=== PATIENT | female | born 1950 | race Caucasian/White ===

== ENCOUNTER → 2018-03-26 16:15 | Outpatient (CLI) | payer OTHER, MEDICARE, SELFPAY ==
[2018-03-26 17:37] LABS: Add Manual Diff / Slide Review NO; Basophils Percent Auto 1.2 % (0-2); Eosinophils Percent Auto 1.8 % (2-4); Hematocrit 44.7 % (36-46); Hemoglobin 14.9 g/dL (12.0-16.0); Lymphocytes Percent Auto 25.9 % (25-40); Mean Corpuscular HGB Conc 33.3 % (30-36); Mean Corpuscular Volume 87.1 fL (80-100); Monocytes Percent Auto 4.8 % (3-14); Neutrophils Absolute Auto 8000 /uL (3000-5900); Neutrophils Percent Auto 66.3 % (50-75); Platelet Count 291 X10^3/uL (150-400); Red Blood Cell Count 5.13 X10^6/uL (4.0-5.2); Red Cell Distribution Width 14.4 % (11.6-14.8); White Blood Cell Count 12.1 X10^3/uL (4.5-11.0)
[2018-03-26 17:58] LABS: Alanine Aminotransferase 39 IU/L (9-52); Albumin 4.3 g/dL (3.5-5.0); Albumin Globulin Ratio 1.4 (1.0-2.8); Alkaline Phosphatase 105 U/L (38-126); Aspartate Aminotransferase 27 IU/L (14-36); Bilirubin Total 0.5 mg/dL (0.2-1.3); Blood Urea Nitrogen 15 mg/dL (7-17); Calcium 9.8 mg/dL (8.4-10.2); Carbon Dioxide 26 mmol/L (22-32); Chloride 100 mmol/L (98-107); Cholesterol 191 mg/dL (140-199); Estimated Glomerular Filt Rate > 60.0 mL/min (>60); Glucose 89 mg/dL (80-110); HDL Cholesterol 56 mg/dL (40-60); HEMOLYSIS < 15 (0-50); LDL Cholesterol Calculated 106 mg/dL (<100); Potassium 4.4 mmol/L (3.4-5.1); Sodium 142 mmol/L (137-145); Total Protein 7.3 g/dL (6.3-8.2); Triglycerides 146 mg/dL (35-150)
== END ==
PROVIDERS: Family Provider Internal Medicine; PCP Internal Medicine; Visit Provider Internal Medicine
DX: I10 Essential (primary) hypertension (principal); I48.0 Paroxysmal atrial fibrillation; J45.20 Mild intermittent asthma, uncomplicated; M06.9 Rheumatoid arthritis, unspecified
CPT/HCPCS: 36415; 80053; 80061; 85025

== ENCOUNTER → 2018-08-15 07:04 | Outpatient (CLI) | payer OTHER, MEDICARE, SELFPAY ==
[2018-08-15 08:53] LABS: Add Manual Diff / Slide Review NO; Basophils Absolute Auto 0 /uL (0-100); Basophils Percent Auto 0.4 % (0-2); Eosinophils Absolute Auto 200 /uL (0-450); Eosinophils Percent Auto 2.5 % (2-4); Hematocrit 44.2 % (36-46); Hemoglobin 14.7 g/dL (12.0-16.0); Lymphocytes Absolute Auto 2900 /uL (1100-4500); Lymphocytes Percent Auto 33.1 % (25-40); Mean Corpuscular HGB Conc 33.4 % (30-36); Mean Corpuscular Volume 86.8 fL (80-100); Monocytes Absolute Auto 600 /uL (0-900); Monocytes Percent Auto 6.8 % (3-14); Neutrophils Absolute Auto 5000 /uL (1500-7000); Neutrophils Percent Auto 57.2 % (50-75); Platelet Count 301 X10^3/uL (150-400); Red Blood Cell Count 5.09 X10^6/uL (4.0-5.2); White Blood Cell Count 8.8 X10^3/uL (4.5-11.0)
[2018-08-15 09:12] LABS: Erythrocyte Sedimentation Rate 37 MM/HR (0-20)
[2018-08-15 09:25] LABS: INR 0.9 (0.9-1.3); Prothrombin Time 10.8 SECONDS (10.1-12.7)
[2018-08-15 09:27] LABS: PTT Partial Thromboplastin Tim 34 SECONDS (26.4-36.2)
[2018-08-15 09:37] LABS: Alanine Aminotransferase 30 IU/L (9-52); Albumin 3.8 g/dL (3.5-5.0); Albumin Globulin Ratio 1.3 (1.0-2.8); Alkaline Phosphatase 79 U/L (38-126); Aspartate Aminotransferase 20 IU/L (14-36); Bilirubin Total 0.4 mg/dL (0.2-1.3); Blood Urea Nitrogen 28 mg/dL (7-17); Calcium 9.5 mg/dL (8.4-10.2); Carbon Dioxide 31 mmol/L (22-32); Chloride 100 mmol/L (98-107); Estimated Glomerular Filt Rate > 60.0 mL/min (>60); Globulin 2.9 g/dL (1.7-4.1); Glucose 111 mg/dL (80-110); HEMOLYSIS < 15 (0-50); Potassium 4.5 mmol/L (3.4-5.1); Sodium 139 mmol/L (137-145); Total Protein 6.7 g/dL (6.3-8.2)
[2018-08-17 21:17] LABS: ANA Screen, IFA Negative (Negative)
== END ==
PROVIDERS: PCP Internal Medicine; Visit Provider Nurse Practitioner
DX: M32.9 Systemic lupus erythematosus, unspecified (principal); R21 Rash and other nonspecific skin eruption
CPT/HCPCS: 36415; 80053; 85025; 85610; 85651; 85730; 86038; 86140

== ENCOUNTER 2018-11-14 23:10 | Emergency (ER) | payer OTHER, MEDICARE, SELFPAY ==
[2018-11-14 23:20] VITALS: BP 148/88; PULSE 70; RESP 30; TEMP 36.5; O2SAT 97; BMI 54.3
--- NOTE | 2018-11-14 23:27 | ED.ABDPAIN ---
HPI - Abdominal Pain General Chief Complaint: Abdominal Pain Stated Complaint: right abdominal pain, vomiting Time Seen by Provider: 11/14/18 23:25 Source: patient and family (daughter) Mode of arrival: wheelchair Limitations: no limitations History of Present Illness HPI narrative: 67-year-old female comes to the emergency department with complaint of abdominal pain patient states she had fairly sudden onset around 8:00 a.m. this evening. She states that she felt a little uncomfortable before. She states it waxes and wanes in intensity does radiate around to her flank. But is most uncomfortable in the right lower quadrant the front. Shows almost point tenderness. Patient denies any fevers. She denies any chest pain or shortness of breath. She states she did become nauseated and had several episodes of vomiting. She denies any diarrhea, no constipation. She did notice some bright red blood in her stool tonight. She has had this happen in the past. She noticed several drops into the stool. Patient denies any dysuria urgency or hematuria. She states occasional vaginal spotting but this is not new for her. She has a history of bowel resection secondary to a large pelvic mass an abscess, she states that some there was also a mess that was all incorporated and was removed. Afterwards she had a abdominal hernia secondary to this. Patient takes flecainide for atrial fibrillation, takes meloxicam for rheumatoid arthritis, she takes medication for blood pressure. She is supposed to take medicine for cholesterol but does not take her rovustatin. She does not take any blood thinners. She denies tobacco, alcohol or illicit. Related Data Home Medications Medication Instructions Recorded Confirmed flecainide 25 mg PO BID 11/14/18 11/15/18 meloxicam 15 mg PO DAILY 11/14/18 11/15/18 metoprolol succinate [Toprol XL] 50 mg PO QDAY 11/14/18 11/15/18 Previous Rx's Medication Instructions Recorded hydrochlorothiazide 25 mg PO QDAY #90 tab 06/29/18 Allergies Allergy/AdvReac Type Severity Reaction Status Date / Time levofloxacin [From LEVAQUIN] Allergy Intermediate rash and Verified 11/14/18 23:20 tendon pain nickel [NICKEL] Allergy Intermediate RASH Verified 11/14/18 23:20 codeine Allergy Mild HIVES Verified 11/14/18 23:20 Sulfa (Sulfonamide Allergy Mild HIVES Verified 11/14/18 23:20 Antibiotics) metronidazole [From FLAGYL] AdvReac Mild headache Verified 11/14/18 23:20 morphine AdvReac Mild DROPS Verified 11/14/18 23:20 RESPIRATORY RATE Review of Systems Review of Systems ROS Unobtainable: All systems reviewed & are unremarkable except as noted in HPI and below Constitutional Denies chills, Denies fever(s), Denies lethargy and Denies weakness Cardiovascular Denies chest pain, Reports edema, Denies irregular heart rhythm, Denies lightheadedness, Denies palpitations, Denies dyspnea, Denies dyspnea on exertion and Denies orthopnea Respiratory Denies chest congestion, Denies cough, Denies dyspnea, Denies dyspnea on exertion and Denies wheezing Gastrointestinal Gastrointestinal: Reports abdominal pain, Denies melena, Reports hematochezia, Denies change in bowel habits, Denies tenesmus, Denies constipation, Denies diarrhea, Reports nausea, Reports vomiting and Denies hematemesis Genitourinary Reports abnormal vaginal bleeding (vaginal spotting intermittently), Denies hematuria, Denies dysuria, Denies flank pain, Denies urinary urgency and Denies vaginal discharge Musculoskeletal Denies back pain Neurologic Denies weakness Endocrine Denies palpitations Allergic/Immunologic Denies wheezing [facility] Medical History Hypertension, essential (Chronic ~1999) Paroxysmal atrial fibrillation (Chronic ~2012) Morbid obesity (Chronic) Vision disorder (Chronic) Sjogren's syndrome (Chronic ~1962) Fibromyalgia (Chronic ~1999) Major depression in complete remission (Chronic 06/17/11) Rheumatoid arthritis (Chronic 06/17/11) Cardiac arrhythmia (Chronic) Diverticulosis of large intestine without perforation or abscess without bleeding (Chronic) Mild intermittent asthma without complication (Chronic 07/10/15) Actinic keratosis (Resolved) Frequent UTI (Resolved ~1979) Heavy menstrual period (Resolved ~2009) Kidney stones (Resolved ~1979) Measles (Resolved ~1959) Mumps (Resolved ~1957) Anesthesia (Inactive) Fibroids (Inactive ~2009) Irritable bowel syndrome (Inactive ~2011) Surgical History S/P laparoscopic supracervical hysterectomy (Inactive) S/P left colectomy (Inactive) History of salpingectomy (Inactive ~01/30/17) History of surgery (Inactive) History of third molar tooth extraction (Inactive) Status post breast reduction (Inactive ~1999) Status post cholecystectomy (Inactive) Status post dilation and curettage (Inactive) Status post hysterectomy with oophorectomy (Inactive 01/30/17) Status post panniculectomy (Inactive ~01/30/17) Status post surgery (Inactive 07/28/09) Status post surgery (Inactive 12/26/16) Status post tonsillectomy and adenoidectomy (Inactive ~1962) Status post tubal ligation (Inactive) Family History Brother Fam hx-ischem heart disease Heart disease Father Fam hx-ischem heart disease Grandfather Heart disease Grandmother Mental health problem Mother Family hx of lung cancer Fam hx-ischem heart disease Cancer Grandfather Hypertension Stroke Grandmother Hypertension Stroke Son Family history of Hodgkin's disease Social History marital status: number of children: 4 household members: none lives independently: Yes caregiver/support person: No housing: house pets and animals: Yes education level: other occupational status: employed current occupational exposures/hazards: Yes mirian/jehovah's witness: Roman Catholic Saint / Jew leisure activities: exercise Smoking Status: Never smoker Tobacco: How many years used: 0 quit status: quit date established second hand exposure: Yes alcohol intake: never substance use type: does not use Family History Brother Fam hx-ischem heart disease Heart disease Father Fam hx-ischem heart disease Grandfather Heart disease Grandmother Mental health problem Mother Family hx of lung cancer Fam hx-ischem heart disease Cancer Grandfather Hypertension Stroke Grandmother Hypertension Stroke Son Family history of Hodgkin's disease Social History marital status: number of children: 4 household members: none lives independently: Yes caregiver/support person: No housing: house pets and animals: Yes education level: other occupational status: employed current occupational exposures/hazards: Yes mirian/jehovah's witness: Roman Catholic Saint / Jew leisure activities: exercise Smoking Status: Never smoker Tobacco: How many years used: 0 quit status: quit date established second hand exposure: Yes alcohol intake: never substance use type: does not use Exam Narrative Exam Narrative: GENERAL: Alert and oriented x three, obese, well-appearing female in mild distress. HEENT: Head normocephalic, atraumatic, EOMI, pupils reactive, face symmetric, moist mucous membranes NECK: Supple, full range of motion CARDIOVASCULAR: Regular rate and rhythm without murmurs, rubs or gallops. RESPIRATORY: Breath sounds equal bilaterally, no wheezes rales or rhonchi. ABDOMEN: Soft, patient is quite tender on the right lower quadrant, she is also mildly tender in the right flank. Hypoactive bowel sounds all 4 quadrants. No guarding or rebound, rigidity, no mass : No CVA tenderness EXTREMITIES: Normal range of motion, no clubbing or edema. Neurovascularly intact NEUROLOGICAL: Cranial nerves II through XII grossly intact. Moving all extremities SKIN: Warm, dry, no petechiae, no rashes or lesions. Initial Vital Signs Initial Vital Signs: Vital Signs Temperature 97.7 F 11/14/18 23:20 Pulse Rate 70 11/14/18 23:20 Respiratory Rate 30 H 11/14/18 23:20 Blood Pressure 148/88 H 11/14/18 23:20 Pulse Oximetry 97 11/14/18 23:20 Course Orders Ordered: ED Orders 11/14/18 23:20 Complete Blood Count AUTO DIFF Stat Comprehensive Metabolic Panel Stat Lipase Stat 11/14/18 23:47 CT abdomen pelvis w con Stat 11/15/18 00:35 Urinalysis and Microscopic Stat Urine Culture Stat Discontinued Medications Sodium Chloride (Normal Saline 0.9%) 1,000 mls @ 150 mls/hr IV CONT LIZABETH Last Infusion: 11/15/18 01:53 Dose: 150 mls/hr Admin: 11/15/18 00:01 Dose: 150 mls/hr Ketorolac Tromethamine (Toradol) 15 mg IV NOW ONE Stop: 11/14/18 23:48 Last Admin: 11/15/18 00:00 Dose: 15 mg Ondansetron HCl (Zofran) 4 mg IV NOW ONE Stop: 11/14/18 23:47 Last Admin: 11/15/18 00:01 Dose: 4 mg Vital Signs - 8 hr 11/14/18 23:20 11/15/18 00:48 11/15/18 01:55 Temperature 97.7 F Pulse Rate 70 67 68 Respiratory Rate 30 H 18 18 Blood Pressure 148/88 H 140/70 Blood Pressure [Right Arm] 150/70 H Pulse Oximetry 97 96 98 MDM - Abdominal Pain Lab Data Attestation: I reviewed the patient's lab results. Result diagrams: 11/14/18 23:20 11/14/18 23:20 Lab Results 11/14/18 11/14/18 11/15/18 Range/Units 23:20 23:20 00:35 WBC 11.5 H (4.5-11.0) X10^3/uL RBC 5.08 (4.0-5.2) X10^6/uL Hgb 14.6 (12.0-16.0) g/dL Hct 43.9 (36-46) % MCV 86.4 (80-100) fL MCH 28.7 (26-34) PG MCHC 33.2 (30-36) % RDW 14.8 (11.6-14.8) % Plt Count 307 (150-400) X10^3/uL Neut % (Auto) 65.9 (50-75) % Lymph % (Auto) 25.3 (25-40) % [place] % (Auto) 6.4 (3-14) % Eos % (Auto) 2.2 (2-4) % Baso % (Auto) 0.2 (0-2) % Neut # (Auto) 7600 H (1016-3622) /uL Lymph # (Auto) 2900 (4425-0861) /uL [place] # (Auto) 700 (0-900) /uL Eos # (Auto) 300 (0-450) /uL Baso # (Auto) 0 (0-100) /uL Sodium 141 (137-145) mmol/L Potassium 4.4 (3.4-5.1) mmol/L Chloride 103 (98-107) mmol/L Carbon Dioxide 29 (22-32) mmol/L BUN 27 H (7-17) mg/dL Creatinine 0.80 (0.52-1.04) mg/dL Estimated GFR > 60.0 (>60) mL/min BUN/Creatinine Ratio 33.8 H (6-22) Glucose 146 H (80-110) mg/dL Calcium 9.6 (8.4-10.2) mg/dL Total Bilirubin 0.3 (0.2-1.3) mg/dL AST 23 (14-36) IU/L ALT 21 (9-52) IU/L Alkaline Phosphatase 115 (38-126) U/L Total Protein 7.4 (6.3-8.2) g/dL Albumin 4.0 (3.5-5.0) g/dL Globulin 3.4 (1.7-4.1) g/dL Albumin/Globulin Ratio 1.2 (1.0-2.8) Lipase 89 (23-300) U/L Urine Color Yellow Urine Appearance Slightly cloudy Urine pH 6.5 (4.5-8.0) Ur Specific [place] 1.015 (1.000-1.035) Urine Protein Negative (Negative) Urine Glucose (UA) Negative (Negative) g/dL Urine Ketones Negative (NEGATIVE) Urine Occult Blood 3+ H (Negative) Urine Nitrate Negative (Negative) Urine Bilirubin Negative (NEGATIVE) Urine Urobilinogen 0.2 (0.2) E.U./dL Ur Leukocyte Esterase Trace H (NEGATIVE) Urine RBC 30-100/hpf H (0-5/HPF) Urine WBC 1-5/hpf (0-5/HPF) Urine Bacteria Moderate (10-30) H (None) Ur Culture Indicated? Specimen cultured Imaging Data CT scan - abdomen: Radiologist's impression: Stable bilateral basilar scarring. No acute bony abnormalities. Hepatomegaly without focal abnormalities. Cholecystectomy, spleen unremarkable. Pancreas, adrenal glands and left kidney unremarkable. Nonspecific right hydro without identification of cause. Stone is noted in the left aspect of the bladder and may have been recently passed from the right system. Pelvic wall ventral hernia containing small bowel and colon with inflammatory change, questionable incarceration. Possible fissure in the left aspect of the ventral hernia. Stone noted in the urinary bladder with mild right hydro, question recently passed no significant free fluid or adenopathy in the pelvis. Uterus is normal size. No adnexal abnormalities. No evidence for diverticulitis, appendix unremarkable. MDM Narrative Medical decision making narrative: Patient's lab work shows a very slight elevation white count 11.5, neutrophils are 7600. CMP shows slightly elevated glucose of 27. CMP otherwise normal with no elevation of LFTs or lipase. Urine shows occult blood, no nitrates, trace leuks. Specimen was sent for culture CT shows changes that could possibly be a right stone, there is also a ventral wall hernia containing small bowel colon with inflammatory change which has been noted to be worse. Well and there may be a fistula to the left of midline. Spoke with Dr. Katz who is on for General surgery, patient is not tender over the area of her hernia. There is no fistula noted. Patient states her pain is more on the right lower abdomen. It has improved after Toradol. On repeat physical examination and on initial exam have not found any findings consistent with incarcerated hernia today or fistula noted. Patient and I discussed recommendations from general surgery and that she should follow up the short turn for recheck. Patient was given strict return precautions and she is comfortable with these. We discussed her CT findings at length that there is the potential who we could be missing a more severe problem. Patient states she understands and we discussed findings to watch. We discussed that if she did have a kidney stone it had passed and that her pain should remit and not continue or flare up again. Patient states she has medication at home for pain. Discharge Plan Departure Patient Disposition: Home Clinical Impression: Abdominal pain Discharge Date/Time: 11/15/18 01:55 Interventions: ED Discharge Assessment Last Done: 11/15/18 01:55 Instructions: Abdominal Hernia Activity Restrictions/Additional Instructions: Follow-up with your primary care or general surgery in the next 24-48 hours for recheck. Call for an appointment in the morning. Your CT today shows increased inflammatory changes of the bowel in your pelvic wall hernia and a possible fistula on the left side. Discuss these findings with your provider. Continue your home medications as prescribed. Your urine has been sent for culture if positive you should expect a phone call in about 48 hours. Return to the emergency department for fevers, persistent vomiting, rapidly worsening pain, increasing bloody stools, black stools, lightheadedness, passing out new back pain or other new or concerning symptoms. Prescriptions: No Action hydrochlorothiazide 25 mg tablet 25 mg PO QDAY Qty: 90 RF: 3 flecainide 50 mg tablet 25 mg PO BID RF: 0 metoprolol succinate [Toprol XL] 25 mg tablet extended release 24 hr 50 mg PO QDAY RF: 0 meloxicam 15 mg tablet 15 mg PO DAILY RF: 0 Referrals: Anil Sommers MD [Primary Care Provider] - Tonya Howard MD [Physician] -
--- NOTE | 2018-11-14 23:47 | DI.CT.S_ITS ---
PROCEDURE: CT ABDOMEN PELVIS W CON INDICATIONS: Right lower quadrant/flank pain, sudden onset, hematachezia, history of multiple abdominal surgeries TECHNIQUE: After the administration of intravenous contrast, 5 mm thick sections acquired from the diaphragm to the symphysis. 5 mm coronal and sagittal reformats were acquired. For radiation dose reduction, the following was used: automated exposure control, adjustment of mA and/or kV according to patient size. COMPARISON: [facility], CT, ABDOMEN/PELVIS WITH CONTRAST, 10/21/2016, 16:27. [facility], CT, ABDOMEN/PELVIS WITH CONTRAST, 09/16/2015, 9:40. FINDINGS: Image quality: Excellent. ABDOMEN: Lung bases: Lung bases are clear. Heart size is normal. Solid organs: Liver is normal in size and enhancement. Gallbladder has been previously resected. Biliary system is non dilated. Pancreas enhances normally. Spleen is normal in size and enhancement. No adrenal nodules. Kidneys demonstrate normal size and enhancement, without hydronephrosis. Peritoneum and bowel: Bowel loops demonstrate normal wall thickness and caliber. No free fluid or air. Nodes and vessels: No retroperitoneal or mesenteric adenopathy by size criteria. Aorta and inferior vena cava are normal in size. Miscellaneous: No ventral hernias. PELVIS: Genitourinary: Bladder wall thickness is normal. Miscellaneous: No inguinal hernias or adenopathy. Note is made of a progression of a ventral hernia at the pelvis midline, in an area of prior periumbilical omental herniation seen on CT scanning from 11/08/16. The body wall defect in this area now measures up to 6.1 cm and allows several small bowel loops to herniate into the subcutaneous fat at the midline below the umbilicus. Incarceration or strangulation of this portion of the small bowel does not appear present. Omental herniation through the area is still seen. Note is made of a normal appendix seen in the right lower quadrant. Bones: No suspicious bony lesions. No vertebral body compression fractures. IMPRESSION: Progression of ventral hernia at the low midline anterior pelvis, now containing small bowel loops extending into the subcutaneous fat rather than just omental fat herniating anteriorly. However, incarceration or small bowel strangulation is not suspected at this time. A normal appendix is identified at the right lower quadrant. Dictated by: Martín Sheffield M.D. on 11/15/2018 at 9:09 Approved by: Martín Sheffield M.D. on 11/15/2018 at 9:14
[2018-11-15] LABS: Alanine Aminotransferase 21 IU/L (9-52); Albumin Globulin Ratio 1.2 (1.0-2.8); Alkaline Phosphatase 115 U/L (38-126); Aspartate Aminotransferase 23 IU/L (14-36); BUN Creatinine Ratio 33.8 (6-22); Bilirubin Total 0.3 mg/dL (0.2-1.3); Blood Urea Nitrogen 27 mg/dL (7-17); Calcium 9.6 mg/dL (8.4-10.2); Carbon Dioxide 29 mmol/L (22-32); Chloride 103 mmol/L (98-107); Estimated Glomerular Filt Rate > 60.0 mL/min (>60); Globulin 3.4 g/dL (1.7-4.1); Glucose 146 mg/dL (80-110); HEMOLYSIS 18 (0-50); Lipase 89 U/L (23-300); Potassium 4.4 mmol/L (3.4-5.1); Sodium 141 mmol/L (137-145); Total Protein 7.4 g/dL (6.3-8.2)
[2018-11-15] MEDS: KETOROLAC 60 MG/2 ML VIAL 15 MG IV
[2018-11-15] MEDS: ONDANSETRON 4 MG/2 ML INJ IV (00:01)
[2018-11-15] MEDS: SODIUM CHLORIDE 0.9% 1,000 ML 150 ML IV (00:01)
[2018-11-15 00:07] LABS: Add Manual Diff / Slide Review NO; Basophils Absolute Auto 0 /uL (0-100); Basophils Percent Auto 0.2 % (0-2); Eosinophils Absolute Auto 300 /uL (0-450); Eosinophils Percent Auto 2.2 % (2-4); Hematocrit 43.9 % (36-46); Hemoglobin 14.6 g/dL (12.0-16.0); Lymphocytes Absolute Auto 2900 /uL (1100-4500); Lymphocytes Percent Auto 25.3 % (25-40); Mean Corpuscular HGB Conc 33.2 % (30-36); Mean Corpuscular Hemoglobin 28.7 PG (26-34); Mean Corpuscular Volume 86.4 fL (80-100); Monocytes Absolute Auto 700 /uL (0-900); Monocytes Percent Auto 6.4 % (3-14); Neutrophils Absolute Auto 7600 /uL (1500-7000); Neutrophils Percent Auto 65.9 % (50-75); Platelet Count 307 X10^3/uL (150-400); Red Blood Cell Count 5.08 X10^6/uL (4.0-5.2); Red Cell Distribution Width 14.8 % (11.6-14.8); White Blood Cell Count 11.5 X10^3/uL (4.5-11.0)
[2018-11-15 00:48] VITALS: BP 150/70; PULSE 67; RESP 18; O2SAT 96
[2018-11-15 00:48] LABS: Bilirubin Urine UA NEGATIVE (NEGATIVE); Color Urine UA YELLOW; Glucose Urine UA NEGATIVE (Negative); Ketones Urine UA NEGATIVE (NEGATIVE); Leukocyte Esterase Urine UA TRACE (NEGATIVE); Nitrite Urine UA NEGATIVE (Negative); Occult Blood Urine UA 3+ (Negative); Protein Urine UA NEGATIVE (Negative); Specific Gravity Urine UA 1.015 (1.000-1.035); Urobilinogen Urine UA 0.2 E.U./dL (0.2); pH Urine UA 6.5 (4.5-8.0)
[2018-11-15 00:51] LABS: Appearance Urine UA Slightly Cloudy
[2018-11-15 01:05] LABS: Bacteria Urine Moderate (10-30); Culture Indicated Urine Specimen Cultured; RBC Urine 30-100/HPF (0-5/HPF); WBC Urine 1-5/HPF (0-5/HPF)
[2018-11-15 01:55] VITALS: BP 140/70; PULSE 68; RESP 18; O2SAT 98
== END 2018-11-15 01:55 | disposition home or self-care (01) ==
PROVIDERS: Emergency Provider Emergency Medicine; PCP Internal Medicine
DX: R10.9 Unspecified abdominal pain (principal)
CPT/HCPCS: 36591; 74177; 80053; 81001; 83690; 85025; 87077; 87086; 87186; 96361; 96374; 96375; 99283; 99284; J1885; J2405; Q9967

== ENCOUNTER → 2019-03-08 06:55 | Outpatient (CLI) | payer OTHER, MEDICARE, SELFPAY ==
--- NOTE | 2019-03-08 07:31 | DI.CT.S_ITS ---
PROCEDURE: CT ABDOMEN PELVIS WO/W CON INDICATIONS: Gross hematuria TECHNIQUE: Optional 5 mm thick noncontrast images acquired from the diaphragm to the symphysis pubis. After the administration of intravenous contrast, 5 mm thick images acquired from the diaphragm to the symphysis pubis after a 10-minute delay. 2 mm thick coronal and sagittal reformats were then performed of the kidneys and ureters. For radiation dose reduction, the following was used: automated exposure control, adjustment of mA and/or kV according to patient size. COMPARISON: None. FINDINGS: Image quality: Excellent. Lung bases: There is mild left greater than right bibasilar atelectasis. There is a 0.6 cm opacity at the posterior lateral left lung base on axial image 10 of series 4. Urinary system: Both kidneys are normal in size, without hydronephrosis or nephrolithiasis on pre-contrast images. No perinephric fat stranding. There is normal bilateral renal enhancement. Renal calyces appear normal in morphology when filled with contrast. Opacified portions of both ureters demonstrate normal caliber. Bladder is incompletely distended but demonstrates mild predominantly anterior wall thickening. No calcified bladder stones. Other solid organs: Liver is normal in size and enhancement. Gallbladder is surgically absent. Biliary system is non dilated. Pancreas enhances normally. Spleen is normal in size and enhancement. No adrenal nodules. Peritoneum and bowel: Bowel loops demonstrate normal wall thickness and caliber. No free fluid or air. Normal appendix seen on axial image 64 of series 2. There is high attenuation material compatible with suture material of the distal sigmoid colon suggestive of prior partial colonic resection. There is colonic diverticulosis without evidence of acute diverticulitis. Nodes and vessels: No retroperitoneal or mesenteric adenopathy by size criteria. Aorta and inferior vena cava are normal in size. There is mild calcified plaque of the abdominal aorta and branch vessels. Abdominal wall: There is a bowel-containing periumbilical hernia with the hernia sac measuring 11.6 cm in greatest diameter and the hernia neck measuring 5.5 cm. No inflammatory fat stranding or free fluid identified within the hernia sac. Pelvis: No pathologic free pelvic fluid. No inguinal hernias or adenopathy. Uterus is present. There is a 2.5 cm intracranial soft tissue nodule of the anterior left lower pelvis near the inguinal canal on axial image 67 of series 2 which demonstrates no suspicious contrast enhancement and measures low density at 12 Hounsfield units. Bones: No suspicious bony lesions. No vertebral body compression fractures. There is moderate multilevel degenerative change of the lumbar spine with grade 1 anterolisthesis of L4 on L5. IMPRESSION: 1. Mild bladder wall thickening, which may be secondary to incomplete distention, bladder outlet obstruction, or chronic inflammation. Consider followup ultrasound or cystoscopy if there is continued clinical concern/to exclude malignancy. 2. No nephrolithiasis or hydronephrosis. 3. 0.6 cm opacity in the posterolateral left lung base likely represents nodular atelectasis but a followup CT in 6 months is recommended to demonstrate stability/resolution and to exclude an underlying pulmonary nodule. 4. 11.6 cm bowel-containing periumbilical hernia. 5. 2.5 cm intraperitoneal soft tissue nodule of the anterior left lower pelvis near the inguinal canal demonstrates low density and may represent scarring from prior surgery; consider followup CT to demonstrate stability and to exclude mass. Dictated by: Jama Rodriguez M.D. on 03/08/2019 at 11:45 Approved by: Jama Rodriguez M.D. on 03/08/2019 at 12:22
== END ==
PROVIDERS: PCP Internal Medicine; Visit Provider Urology
DX: R31.0 Gross hematuria (principal); K42.9 Umbilical hernia without obstruction or gangrene; R22.2 Localized swelling, mass and lump, trunk; K57.90 Diverticulosis of intestine, part unspecified, without perforation or abscess without bleeding; Z90.49 Acquired absence of other specified parts of digestive tract
CPT/HCPCS: 74178; Q9967

== ENCOUNTER 2019-06-04 18:06 | Emergency (ER) | payer OTHER, MEDICARE, SELFPAY ==
[2019-06-04 18:10] VITALS: BP 138/80; PULSE 71; RESP 24; TEMP 36.3; O2SAT 92; BMI 50.5
[2019-06-04 19:04] LABS: Add Manual Diff / Slide Review NO; Basophils Absolute Auto 100 /uL (0-100); Basophils Percent Auto 0.6 % (0-2); Eosinophils Absolute Auto 200 /uL (0-450); Eosinophils Percent Auto 1.7 % (2-4); Hematocrit 45.9 % (36-46); Hemoglobin 15.3 g/dL (12.0-16.0); Lymphocytes Absolute Auto 2500 /uL (1100-4500); Lymphocytes Percent Auto 22.3 % (25-40); Mean Corpuscular HGB Conc 33.2 % (30-36); Mean Corpuscular Hemoglobin 28.2 PG (26-34); Monocytes Absolute Auto 600 /uL (0-900); Monocytes Percent Auto 5.7 % (3-14); Neutrophils Absolute Auto 7800 /uL (1500-7000); Neutrophils Percent Auto 69.7 % (50-75); Platelet Count 289 X10^3/uL (150-400); Red Blood Cell Count 5.41 X10^6/uL (4.0-5.2); White Blood Cell Count 11.1 X10^3/uL (4.5-11.0)
[2019-06-04 19:17] LABS: Alanine Aminotransferase 22 IU/L (<35); Albumin 4.4 g/dL (3.5-5.0); Albumin Globulin Ratio 1.2 (1.0-2.8); Alkaline Phosphatase 105 U/L (38-126); Aspartate Aminotransferase 26 IU/L (14-36); BUN Creatinine Ratio 31.7 (6-22); Bilirubin Total 0.4 mg/dL (0.2-1.3); Blood Urea Nitrogen 19 mg/dL (7-17); Calcium 10.1 mg/dL (8.4-10.2); Carbon Dioxide 28 mmol/L (22-32); Chloride 102 mmol/L (98-107); Estimated Glomerular Filt Rate > 60.0 mL/min (>60); Globulin 3.6 g/dL (1.7-4.1); Glucose 130 mg/dL (80-110); HEMOLYSIS 32 (0-50); Potassium 4.2 mmol/L (3.4-5.1); Sodium 139 mmol/L (137-145)
--- NOTE | 2019-06-04 19:57 | DI.CT.S_ITS ---
PROCEDURE: CT ABDOMEN PELVIS W CON INDICATIONS: mid lower abdominal pain, possible incarcerated hernia TECHNIQUE: After the administration of intravenous contrast, 5 mm thick sections acquired from the diaphragm to the symphysis. 5 mm coronal and sagittal reformats were acquired. For radiation dose reduction, the following was used: automated exposure control, adjustment of mA and/or kV according to patient size. COMPARISON: [facility], CT, CT ABDOMEN PELVIS WITH CONTRAST, 02/25/2019, 12:51. [facility], CT, CT ABDOMEN PELVIS W CON, 11/15/2018, 0:00. FINDINGS: Image quality: Excellent. ABDOMEN: Lung bases: Linear atelectatic changes at both lung bases, left worse than right. Heart size is normal. Solid organs: Liver is normal in size and enhancement. Gallbladder is surgically absent. Biliary system is non dilated. Pancreas enhances normally. Spleen is normal in size and enhancement. No adrenal nodules. Kidneys demonstrate normal size and enhancement, without hydronephrosis. Peritoneum and bowel: A there is a chronic lower midline abdominal wall hernia which contains loops of small bowel. Mid small bowel loops within the hernia sac and in the left mid to low abdomen are distended, fluid-filled, and contain air-fluid levels. There is probably a transition point along the left aspect of the hernia. There is an anastomosis in the sigmoid from prior partial sigmoid resection. A few small adjacent diverticula are seen. Colon appears otherwise normal. A normal appendix is present. Nodes and vessels: No retroperitoneal or mesenteric adenopathy by size criteria. Aorta and inferior vena cava are normal in size. Miscellaneous: No ventral hernias. PELVIS: Genitourinary: Bladder wall thickness is normal. The uterus is age-appropriate. Miscellaneous: No inguinal hernias or adenopathy. Bones: No suspicious bony lesions. Degenerative disc change at L5-S1. No vertebral body compression fractures. IMPRESSION: 1. There is a chronic ventral abdominal wall hernia which is now causing small bowel obstruction. There may be a transition point along the left aspect. 2. Partial sigmoid resection with a few residual diverticula. 3. Cholecystectomy. Dictated by: Roseanne Espinal M.D. on 06/04/2019 at 21:08 Approved by: Roseanne Espinal M.D. on 06/04/2019 at 21:17
--- NOTE | 2019-06-04 20:12 | ED.ABDPAIN ---
HPI - Abdominal Pain General Chief Complaint: Abdominal Pain Stated Complaint: ABD PAIN FEELS LIKE BLACKING OUT Time Seen by Provider: 06/04/19 18:33 Source: patient Mode of arrival: Ambulatory Limitations: no limitations History of Present Illness HPI narrative: The patient has a ventral hernia. She underwent a hysterectomy and bowel resection about 2 years ago, she has been dealing with a ventral hernia since then. About 3 hours ago at home she'd come in from activity outside. She was sitting/resting. She has used the hernia moving out, been going. She developed pain at the hernia site, and the hernia came out and would not reduce. Pain increased the point where she came in. she has had no nausea vomiting. She has been passing gas. She has had normal bowel movements. She has had no fever or chills. She has no other recent complaints. She has been doing well until the hernia started acting up prior to arrival here. Related Data Home Medications Medication Instructions Recorded Confirmed flecainide 25 mg PO BID 11/14/18 03/26/19 metoprolol succinate [Toprol XL] 50 mg PO QDAY 11/14/18 03/26/19 hydroxychloroquine 200 mg tablet 200 mg PO BID 03/26/19 03/26/19 Previous Rx's Medication Instructions Recorded hydrochlorothiazide 25 mg PO QDAY #90 tab 06/29/18 albuterol sulfate 90 mcg/actuation 2 puff INHALATION QID PRN #18 gram 03/26/19 aerosol inhaler meclizine 25 mg tablet 25 mg PO BEDTIME PRN #20 tab 03/26/19 Allergies Allergy/AdvReac Type Severity Reaction Status Date / Time levofloxacin [From LEVAQUIN] Allergy Intermediate rash and Verified 06/04/19 18:12 tendon pain nickel [NICKEL] Allergy Intermediate RASH Verified 06/04/19 18:12 codeine Allergy Mild HIVES Verified 06/04/19 18:12 Sulfa (Sulfonamide Allergy Mild HIVES Verified 06/04/19 18:12 Antibiotics) metronidazole [From FLAGYL] AdvReac Mild headache Verified 06/04/19 18:12 morphine AdvReac Mild DROPS Verified 06/04/19 18:12 RESPIRATORY RATE Review of Systems Review of Systems ROS Unobtainable: All systems reviewed & are unremarkable except as noted in HPI and below Constitutional Constitutional: Reports system reviewed and no additional complaints, except as docu ENT Ears, Nose, Mouth, and Throat: Denies dizziness Comments: No sore throat. No ENT complaints. Cardiovascular Cardiovascular: Denies chest pain, Denies irregular heart rhythm, Denies lightheadedness, Denies palpitations, Denies dyspnea and Denies orthopnea Respiratory Respiratory: Denies cough and Denies dyspnea Gastrointestinal Gastrointestinal: Reports as per HPI, Reports abdominal pain, Denies diarrhea, Denies nausea and Denies vomiting Genitourinary Genitourinary: Denies dysuria Musculoskeletal Musculoskeletal: Denies back pain and Denies numbness Integumentary/Breasts Skin/Breast: Denies erythema, Denies rash and Denies wounds Neurologic Neurologic: Denies dizziness and Denies numbness Endocrine Endocrine: Denies palpitations Patient History Medical History (Updated 06/04/19 @ 22:59 by Néstor Jonas MD) Actinic keratosis (Resolved) Anesthesia (Inactive) Cardiac arrhythmia (Chronic) Diverticulosis of large intestine without perforation or abscess without bleeding (Chronic) Fibroids (Inactive ~2009) Fibromyalgia (Chronic ~1999) Frequent UTI (Resolved ~1979) Heavy menstrual period (Resolved ~2009) Hypertension, essential (Chronic ~1999) Irritable bowel syndrome (Inactive ~2011) Kidney stones (Resolved ~1979) Major depression in complete remission (Chronic 06/17/11) Measles (Resolved ~1959) Mild intermittent asthma without complication (Chronic 07/10/15) Morbid obesity (Chronic) Mumps (Resolved ~1957) Paroxysmal atrial fibrillation (Chronic ~2012) Rheumatoid arthritis (Chronic 06/17/11) Sjogren's syndrome (Chronic ~1962) Ventral hernia (Acute) Vision disorder (Chronic) Surgical History History of salpingectomy (Inactive ~01/30/17) History of surgery (Inactive) History of third molar tooth extraction (Inactive) S/P laparoscopic supracervical hysterectomy (Inactive) S/P left colectomy (Inactive) Status post breast reduction (Inactive ~1999) Status post cholecystectomy (Inactive) Status post dilation and curettage (Inactive) Status post hysterectomy with oophorectomy (Inactive 01/30/17) Status post panniculectomy (Inactive ~01/30/17) Status post surgery (Inactive 07/28/09) Status post surgery (Inactive 12/26/16) Status post tonsillectomy and adenoidectomy (Inactive ~1962) Status post tubal ligation (Inactive) Family History Brother Fam hx-ischem heart disease Heart disease Father Fam hx-ischem heart disease Hypertension Crohns disease Grandfather Heart disease Grandmother Mental health problem Mother Family hx of lung cancer Fam hx-ischem heart disease Cancer Hypertension Grandfather Hypertension Stroke Grandmother Hypertension Stroke Son Family history of Hodgkin's disease Social History marital status: number of children: 4 household members: none lives independently: Yes caregiver/support person: No housing: house pets and animals: Yes education level: other occupational status: employed current occupational exposures/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: 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 activities: exercise Smoking Status: Never smoker Tobacco: How many years used: 0 quit status: quit date established second hand exposure: Yes alcohol intake: never substance use type: does not use Smoking Status: Never smoker alcohol intake frequency: holidays/special occasions only Substance Use Type: does not use Exam Initial Vital Signs Initial Vital Signs: Vital Signs Temperature 97.3 F L 06/04/19 18:10 Pulse Rate 71 06/04/19 18:10 Respiratory Rate 24 06/04/19 18:10 Blood Pressure 138/80 06/04/19 18:10 Pulse Oximetry 92 06/04/19 18:10 Const General: cooperative and well developed Nutritional Appearance: well nourished [facility] Head: atraumatic Mouth: oral mucosae normal Eyes General: appearance normal, both eyes and all related structures Eyelids: eyelids normal Conjunctivae: conjunctivae normal Sclera: sclerae normal Pupils: PERRL EOM: EOM intact bilaterally Chest Chest: normal inspection of the chest Resp Effort & Inspection: normal respiratory effort and able to speak in complete sentences Auscultation: clear to auscultation bilaterally, no rales, no rhonchi and no wheezes Cardio Rate: regular rate Rhythm: regular rhythm Heart Sounds: S1 normal, S2 normal, no click, no gallops, no murmurs and no rubs Pulses: normal peripheral pulses GI Inspection: non-distended Palpation: soft, no hepatosplenomegaly and No tender Auscultation: normal bowel sounds Other: She has a ventral hernia, just below the umbilicus. Apparently the hernia has been quite uncomfortable earlier tonight. I was able to reduce the hernia without complication. Bowel sounds are normal after the hernia reduction. Back/Spine/Pelvis Back: No CVA tenderness Skin General: no rashes or lesions noted Neuro General: alert, oriented x3, gait normal and no focal motor deficits Speech: speech normal Course Course Course Narrative: CT was initially suggestive of a bowel obstruction. After reducing the hernia, the patient had improved nausea, and eventual resolution of pain. On repeat exam the hernia deficit is palpable, there is no significant bulge. Bowel sounds normal. She is nontender. Orders Ordered: ED Orders 06/04/19 19:00 CMP [Comprehensive Metabolic Panel] Stat Complete Blood Count AUTO DIFF Stat 06/04/19 19:57 CT abdomen pelvis w con Stat Discontinued Medications Acetaminophen (Tylenol) 975 mg PO NOW ONE Stop: 06/04/19 21:09 Last Admin: 06/04/19 21:19 Dose: 975 mg Documented by: CHEPE Ketorolac Tromethamine (Toradol) 30 mg IV NOW ONE Stop: 06/04/19 20:00 Ondansetron HCl (Zofran) 4 mg IV NOW ONE Stop: 06/04/19 19:59 Ondansetron HCl (Zofran) 4 mg IV NOW ONE Stop: 06/04/19 21:08 Last Admin: 06/04/19 21:20 Dose: 4 mg Documented by: CHEPE Vital Signs Vital signs: Vital Signs - 8 hr 06/04/19 18:10 Temperature 97.3 F L Pulse Rate 71 Respiratory Rate 24 Blood Pressure 138/80 Pulse Oximetry 92 MDM - Abdominal Pain Lab Data Result diagrams: 06/04/19 19:00 06/04/19 19:00 Labs: Lab Results 06/04/19 06/04/19 Range/Units 19:00 19:00 WBC 11.1 H (4.5-11.0) X10^3/uL RBC 5.41 H (4.0-5.2) X10^6/uL Hgb 15.3 (12.0-16.0) g/dL Hct 45.9 (36-46) % MCV 85.0 (80-100) fL MCH 28.2 (26-34) PG MCHC 33.2 (30-36) % RDW 15.0 H (11.6-14.8) % Plt Count 289 (150-400) X10^3/uL Neut % (Auto) 69.7 (50-75) % Lymph % (Auto) 22.3 L (25-40) % [place] % (Auto) 5.7 (3-14) % Eos % (Auto) 1.7 L (2-4) % Baso % (Auto) 0.6 (0-2) % Neut # (Auto) 7800 H (5981-3308) /uL Lymph # (Auto) 2500 (9175-2853) /uL [place] # (Auto) 600 (0-900) /uL Eos # (Auto) 200 (0-450) /uL Baso # (Auto) 100 (0-100) /uL Sodium 139 (137-145) mmol/L Potassium 4.2 (3.4-5.1) mmol/L Chloride 102 (98-107) mmol/L Carbon Dioxide 28 (22-32) mmol/L BUN 19 H (7-17) mg/dL Creatinine 0.60 (0.52-1.04) mg/dL Estimated GFR > 60.0 (>60) mL/min BUN/Creatinine Ratio 31.7 H (6-22) Glucose 130 H (80-110) mg/dL Calcium 10.1 (8.4-10.2) mg/dL Total Bilirubin 0.4 (0.2-1.3) mg/dL AST 26 (14-36) IU/L ALT 22 (<35) IU/L Alkaline Phosphatase 105 (38-126) U/L Total Protein 8.0 (6.3-8.2) g/dL Albumin 4.4 (3.5-5.0) g/dL Globulin 3.6 (1.7-4.1) g/dL Albumin/Globulin Ratio 1.2 (1.0-2.8) Point of care testing: Urine Dip Bedside Urine Glucose Negative Bedside Urine Bilirubin - Negative Bedside Urine Ketone - Negative Urine Specific [place] 1.010 Bedside Urine Occult Blood - Negative Bedside Urine pH 6.0 Bedside Urine Protein - Negative Bedside Urine Urobilinogen - Negative Bedside Urine Nitrite - Negative Bedside Urine Leukocytes - Negative Esterase Imaging Data CT scan - abdomen/pelvis: Radiologist's Impression: Ventral hernia. Bowel obstruction. ECG Data Attestation: I personally reviewed and interpreted this ECG as follows: (Normal sinus rhythm rate 65 beats per minute. Low voltage in the precordial leads. Possible old anterior [place], no acute changes. Possible old inferior [place], no acute changes.) Discharge Plan Departure Patient Disposition: Home Clinical Impression: Ventral hernia Qualifiers: Obstruction and gangrene presence: without obstruction or gangrene Qualified Code(s): K43.9 - Ventral hernia without obstruction or gangrene Instructions: DI for Ventral Hernia Activity Restrictions/Additional Instructions: Be sure you drink plenty fluids and remain well hydrated. Take Tylenol as necessary for mild pain. Return the ER as needed. Prescriptions: No Action hydrochlorothiazide 25 mg tablet 25 mg PO QDAY Qty: 90 RF: 3 hydroxychloroquine 200 mg tablet 200 mg PO BID RF: 0 meclizine 25 mg tablet 25 mg PO BEDTIME PRN (Reason: vertigo) Qty: 20 RF: 0 albuterol sulfate 90 mcg/actuation HFA aerosol inhaler 2 puff INHALATION QID PRN (Reason: shortness of breath or wheezing) Qty: 18 RF: 0 flecainide 50 mg tablet 25 mg PO BID RF: 0 metoprolol succinate [Toprol XL] 25 mg tablet extended release 24 hr 50 mg PO QDAY RF: 0 Referrals: Anil Sommers MD [Primary Care Provider] -
[2019-06-04] MEDS: ACETAMINOPHEN 325 MG TABLET 975 MG PO (21:19)
[2019-06-04] MEDS: ONDANSETRON 4 MG/2 ML INJ IV (21:20)
[2019-06-04 23:29] VITALS: BP 132/70; PULSE 75; RESP 19; O2SAT 95
== END 2019-06-04 23:40 | disposition home or self-care (01) ==
PROVIDERS: Emergency Provider Emergency Medicine; PCP Internal Medicine
DX: K43.9 Ventral hernia without obstruction or gangrene (principal); R10.9 Unspecified abdominal pain
CPT/HCPCS: 36415; 74177; 80053; 81003; 85025; 93005; 96374; 99284; 99285; J2405

== ENCOUNTER 2019-07-15 21:22 | Emergency (ER) | payer OTHER, MEDICARE, SELFPAY ==
[2019-07-15 21:25] VITALS: BP 152/72; PULSE 82; RESP 22; TEMP 36.4; O2SAT 96
[2019-07-15 21:44] LABS: Add Manual Diff / Slide Review NO; Basophils Absolute Auto 100 /uL (0-100); Basophils Percent Auto 0.6 % (0-2); Eosinophils Absolute Auto 400 /uL (0-450); Eosinophils Percent Auto 2.7 % (2-4); Hematocrit 45.5 % (36-46); Lymphocytes Absolute Auto 3200 /uL (1100-4500); Lymphocytes Percent Auto 24.5 % (25-40); Mean Corpuscular HGB Conc 32.9 % (30-36); Mean Corpuscular Hemoglobin 28.2 PG (26-34); Mean Corpuscular Volume 85.5 fL (80-100); Monocytes Absolute Auto 800 /uL (0-900); Monocytes Percent Auto 5.9 % (3-14); Neutrophils Absolute Auto 8700 /uL (1500-7000); Neutrophils Percent Auto 66.3 % (50-75); Platelet Count 281 X10^3/uL (150-400); Red Blood Cell Count 5.31 X10^6/uL (4.0-5.2); White Blood Cell Count 13.1 X10^3/uL (4.5-11.0)
--- NOTE | 2019-07-15 21:55 | ED_ITS ---
HPI - Arrhythmia/Palpitations General Chief Complaint: Arrhythmia/Palpitations Stated Complaint: Elavated Heart Rate/ Dizzyness Time Seen by Provider: 07/15/19 21:28 Source: patient and family Mode of arrival: Wheelchair Limitations: no limitations History of Present Illness HPI narrative: 68-year-old female here for evaluation of which she states was palpitations, fast heart rate and dizziness. Past couple weeks patient was admitted an outside facility after was initially diagnosis of CVA but then eventually diagnosis a TIA. She has no residual deficits from this. She also has a history of paroxysmal atrial fibrillation. She is on flecainide and metoprolol for this. She is taking these medications. She is also on anticoagulation for this. She states that today she was at home when she states that she started to feel like her heart was racing. She states she felt unsteady on her feet was what she describes as dizziness. Was not a vertigo sensation. No chest pain. She states that her her rate is normally in the 50s and 60s and at that time it was in the 90s and low 100s. Her symptoms seemed to have improved if not resolved at the time of my evaluation. Related Data Home Medications Medication Instructions Recorded Confirmed flecainide 25 mg PO BID 11/14/18 03/26/19 metoprolol succinate [Toprol XL] 50 mg PO QDAY 11/14/18 03/26/19 hydroxychloroquine 200 mg tablet 200 mg PO BID 03/26/19 03/26/19 Previous Rx's Medication Instructions Recorded hydrochlorothiazide 25 mg PO QDAY #90 tab 06/29/18 albuterol sulfate 90 mcg/actuation 2 puff INHALATION QID PRN #18 gram 03/26/19 aerosol inhaler meclizine 25 mg tablet 25 mg PO BEDTIME PRN #20 tab 03/26/19 Allergies Allergy/AdvReac Type Severity Reaction Status Date / Time levofloxacin [From LEVAQUIN] Allergy Intermediate rash and Verified 06/04/19 18:12 tendon pain nickel [NICKEL] Allergy Intermediate RASH Verified 06/04/19 18:12 codeine Allergy Mild HIVES Verified 06/04/19 18:12 Sulfa (Sulfonamide Allergy Mild HIVES Verified 06/04/19 18:12 Antibiotics) metronidazole [From FLAGYL] AdvReac Mild headache Verified 06/04/19 18:12 morphine AdvReac Mild DROPS Verified 06/04/19 18:12 RESPIRATORY RATE Review of Systems Constitutional Constitutional: Denies fever(s) and Denies headache(s) ENT Ears, Nose, Mouth, and Throat: Denies headache(s) Cardiovascular Cardiovascular: Denies chest pain, Reports rapid heart rate, Reports palpi tations and Denies dyspnea Respiratory Respiratory: Denies dyspnea Gastrointestinal Gastrointestinal: Denies abdominal pain, Denies nausea and Denies vomiting Musculoskeletal Musculoskeletal: Denies myalgias and Denies arthralgias Integumentary/Breasts Skin/Breast: Denies rash Neurologic Neurologic: Denies behavioral changes and Denies headache(s) Psychiatric Psychiatric: Denies behavioral changes Endocrine Endocrine: Reports palpitations Hematologic/Lymphatic Comments: On anticoagulation Patient History Medical History Actinic keratosis (Resolved) Anesthesia (Inactive) Cardiac arrhythmia (Chronic) Diverticulosis of large intestine without perforation or abscess without bl eeding (Chronic) Fibroids (Inactive ~2009) Fibromyalgia (Chronic ~1999) Frequent UTI (Resolved ~1979) Heavy menstrual period (Resolved ~2009) Hypertension, essential (Chronic ~1999) Irritable bowel syndrome (Inactive ~2011) Kidney stones (Resolved ~1979) Major depression in complete remission (Chronic 06/17/11) Measles (Resolved ~1959) Mild intermittent asthma without complication (Chronic 07/10/15) Morbid obesity (Chronic) Mumps (Resolved ~1957) Paroxysmal atrial fibrillation (Chronic ~2012) Rheumatoid arthritis (Chronic 06/17/11) Sjogren's syndrome (Chronic ~1962) Ventral hernia (Acute) Vision disorder (Chronic) Social History marital status: number of children: 4 household members: none lives independently: Yes caregiver/support person: No housing: house pets and animals: Yes education level: other occupational status: employed current occupational exposures/hazards: Yes 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 activities: exercise Smoking Status: Never smoker Tobacco: How many years used: 0 quit status: quit date established second hand exposure: Yes alcohol intake: never substance use type: does not use Smoking Status: Never smoker alcohol intake frequency: holidays/special occasions only Substance Use Type: does not use Exam Initial Vital Signs Initial Vital Signs: Vital Signs Temperature 97.6 F 07/15/19 21:25 Pulse Rate 82 07/15/19 21:25 Respiratory Rate 22 07/15/19 21:25 Blood Pressure 152/72 H 07/15/19 21:25 Pulse Oximetry 96 07/15/19 21:25 Const General: cooperative and comfortable Limitations: mental status not altered HENMT Head: normal to inspection and normocephalic Resp Effort & Inspection: normal respiratory effort Auscultation: clear to auscultation bilaterally Cardio Rate: regular rate Rhythm: regular rhythm Pulses: radial pulses present GI Inspection: non-distended Palpation: soft Skin Lesions: no lesions Rashes: no rashes Neuro General: alert and awake Cognition: normal cognition Speech: speech normal Extrem General: normal to inspection and capillary refill normal Psych Appearance: grossly normal and well kempt Scores GCS [place] coma scale eye opening: Spontaneous [place] coma scale verbal response: Orientated [place] coma scale motor response: Obey commands Joseline coma scale total score: 15 Course Orders Ordered: ED Orders 07/15/19 21:28 EKG-12 Lead Stat 07/15/19 21:35 Complete Blood Count AUTO DIFF Stat 07/15/19 22:03 Comprehensive Metabolic Panel Stat Lipase Stat Troponin I Stat Vital Signs Vital signs: Vital Signs - 8 hr 07/15/19 21:25 07/15/19 23:10 Temperature 97.6 F Pulse Rate 82 79 Respiratory Rate 22 16 Blood Pressure 152/72 H 133/72 Pulse Oximetry 96 98 MDM - Arrhythmia/Palpitations Lab Data Attestation: I reviewed the patient's lab results. Result diagrams: 07/15/19 21:35 07/15/19 22:03 Labs: Lab Results 07/15/19 07/15/19 Range/Units 21:35 22:03 WBC 13.1 H (4.5-11.0) X10^3/uL RBC 5.31 H (4.0-5.2) X10^6/uL Hgb 15.0 (12.0-16.0) g/dL Hct 45.5 (36-46) % MCV 85.5 (80-100) fL MCH 28.2 (26-34) PG MCHC 32.9 (30-36) % RDW 15.0 H (11.6-14.8) % Plt Count 281 (150-400) X10^3/uL Neut % (Auto) 66.3 (50-75) % Lymph % (Auto) 24.5 L (25-40) % [place] % (Auto) 5.9 (3-14) % Eos % (Auto) 2.7 (2-4) % Baso % (Auto) 0.6 (0-2) % Neut # (Auto) 8700 H (7135-6797) /uL Lymph # (Auto) 3200 (3744-7913) /uL [place] # (Auto) 800 (0-900) /uL Eos # (Auto) 400 (0-450) /uL Baso # (Auto) 100 (0-100) /uL Sodium 139 (137-145) mmol/L Potassium 3.8 (3.4-5.1) mmol/L Chloride 101 (98-107) mmol/L Carbon Dioxide 30 (22-32) mmol/L BUN 21 H (7-17) mg/dL Creatinine 0.80 (0.52-1.04) mg/dL Estimated GFR > 60.0 (>60) mL/min BUN/Creatinine Ratio 26.3 H (6-22) Glucose 133 H (80-110) mg/dL Calcium 9.5 (8.4-10.2) mg/dL Total Bilirubin 0.3 (0.2-1.3) mg/dL AST 23 (14-36) IU/L ALT 18 (<35) IU/L Alkaline Phosphatase 103 (38-126) U/L Troponin I < 0.012 (0.01-0.034) ng/mL Total Protein 7.5 (6.3-8.2) g/dL Albumin 4.1 (3.5-5.0) g/dL Globulin 3.4 (1.7-4.1) g/dL Albumin/Globulin Ratio 1.2 (1.0-2.8) Lipase 84 (23-300) U/L ECG Data Attestation: I personally reviewed and interpreted this ECG as follows: Prior ECG tracings: not available for review Interpretation: Sinus rhythm Ventricular rate is 78 Normal axis Normal QRS Normal QTC MDM Narrative Medical decision making narrative: Patient was essentially asymptomatic the time my evaluation. She was in sinus rhythm on the EKG and also on the monitor. Labs show a leukocytosis. Unsure the exact etiology of this however she does not have any signs of infection. Could be a stress reaction. I do suspect that she did have an episode of atrial fibrillation earlier this evening with brought her into the ER. I did discuss this with her. We did talk that atrial fibrillation could potentially do this. I have low suspicion for CVA. Low suspicion for TIA. She has a nonfocal neurologic exam. States that she did not have the symptoms today which she had a couple days ago. Will hold on further workup for now. She has a follow-up with her primary provider tomorrow. We did discuss potentially asking about whether not she needs to be on a Holter monitor to see if she has potentially an atrial fibrillation more often than which she realizes. We discussed return precautions and follow-up instructions. She expressed understanding and agreement with plan. Discharge Plan Departure Patient Disposition: Home Clinical Impression: Paroxysmal atrial fibrillation, Dizziness Discharge Date/Time: 07/15/19 23:10 Instructions: DI for Atrial Fibrillation Activity Restrictions/Additional Instructions: Continue all of your medications as directed. Keep all of your scheduled medical appointments. Return to the emergency department for any new or worsening symptoms Prescriptions: No Action hydrochlorothiazide 25 mg tablet 25 mg PO QDAY Qty: 90 RF: 3 hydroxychloroquine 200 mg tablet 200 mg PO BID RF: 0 meclizine 25 mg tablet 25 mg PO BEDTIME PRN (Reason: vertigo) Qty: 20 RF: 0 albuterol sulfate 90 mcg/actuation HFA aerosol inhaler 2 puff INHALATION QID PRN (Reason: shortness of breath or wheezing) Qty: 18 R F: 0 flecainide 50 mg tablet 25 mg PO BID RF: 0 metoprolol succinate [Toprol XL] 25 mg tablet extended release 24 hr 50 mg PO QDAY RF: 0 Referrals: Anil Sommers MD [Primary Care Provider] -
[2019-07-15 22:25] LABS: Alanine Aminotransferase 18 IU/L (<35); Albumin 4.1 g/dL (3.5-5.0); Albumin Globulin Ratio 1.2 (1.0-2.8); Alkaline Phosphatase 103 U/L (38-126); Aspartate Aminotransferase 23 IU/L (14-36); BUN Creatinine Ratio 26.3 (6-22); Bilirubin Total 0.3 mg/dL (0.2-1.3); Blood Urea Nitrogen 21 mg/dL (7-17); Calcium 9.5 mg/dL (8.4-10.2); Carbon Dioxide 30 mmol/L (22-32); Chloride 101 mmol/L (98-107); Estimated Glomerular Filt Rate > 60.0 mL/min (>60); Globulin 3.4 g/dL (1.7-4.1); Glucose 133 mg/dL (80-110); HEMOLYSIS < 15 (0-50); Lipase 84 U/L (23-300); Potassium 3.8 mmol/L (3.4-5.1); Sodium 139 mmol/L (137-145); Total Protein 7.5 g/dL (6.3-8.2)
[2019-07-15 22:37] LABS: Troponin I < 0.012 ng/mL (0.01-0.034)
[2019-07-15 23:10] VITALS: BP 133/72; PULSE 79; RESP 16; O2SAT 98
== END 2019-07-15 23:10 | disposition home or self-care (01) ==
PROVIDERS: Emergency Provider Emergency Medicine; PCP Internal Medicine
DX: I48.0 Paroxysmal atrial fibrillation (principal); R42 Dizziness and giddiness; Z79.01 Long term (current) use of anticoagulants
CPT/HCPCS: 36415; 80053; 83690; 84484; 85025; 93005; 99284

== ENCOUNTER → 2019-09-19 11:22 | Outpatient (CLI) | payer OTHER, MEDICARE, SELFPAY | PROVIDERS: PCP Internal Medicine; Referring Provider Psychiatry & Neurology Neurology; Visit Provider Psychiatry & Neurology Neurology | DX: G45.1 Carotid artery syndrome (hemispheric) (principal); Z53.8 Procedure and treatment not carried out for other reasons ==

== ENCOUNTER → 2019-10-31 14:39 | Outpatient (CLI) | payer OTHER, MEDICARE, SELFPAY ==
[2019-11-01 09:36] LABS: SARS CoV19 IgG Negative (Negative)
== END ==
PROVIDERS: PCP Internal Medicine; Referring Provider Internal Medicine; Visit Provider Internal Medicine
DX: B34.9 Viral infection, unspecified (principal)
CPT/HCPCS: 36415; 86769

== ENCOUNTER → 2020-03-02 14:48 | Outpatient (CLI) | payer OTHER, MEDICARE, SELFPAY | PROVIDERS: PCP Internal Medicine; Visit Provider Registered Nurse | DX: R10.9 Unspecified abdominal pain (principal); Z87.440 Personal history of urinary (tract) infections | CPT/HCPCS: 87086 ==

== ENCOUNTER → 2020-03-02 14:50 | Outpatient (CLI) | payer OTHER, MEDICARE, SELFPAY ==
[2020-03-02 15:55] LABS: Hemoglobin A1C% w Est Avg Glu 5.8 % (4.0-6.0)
[2020-03-02 15:59] LABS: Alanine Aminotransferase 19 IU/L (<35); Albumin 3.8 g/dL (3.5-5.0); Albumin Globulin Ratio 1.3 (1.0-2.8); Alkaline Phosphatase 91 U/L (38-126); Aspartate Aminotransferase 24 IU/L (14-36); Bilirubin Total 0.6 mg/dL (0.2-1.3); Blood Urea Nitrogen 16 mg/dL (7-17); Calcium 9.4 mg/dL (8.4-10.2); Carbon Dioxide 36 mmol/L (22-32); Chloride 101 mmol/L (98-107); Estimated Glomerular Filt Rate > 60.0 mL/min (>60); Globulin 2.9 g/dL (1.7-4.1); Glucose 102 mg/dL (80-110); HEMOLYSIS < 15 (0-50); Potassium 4.3 mmol/L (3.4-5.1); Sodium 141 mmol/L (137-145); Total Protein 6.7 g/dL (6.3-8.2)
== END ==
PROVIDERS: PCP Internal Medicine; Referring Provider Registered Nurse; Visit Provider Registered Nurse
DX: R10.9 Unspecified abdominal pain (principal); R53.83 Other fatigue; R73.9 Hyperglycemia, unspecified; Z87.440 Personal history of urinary (tract) infections
CPT/HCPCS: 36415; 80053; 83036; 87086

== ENCOUNTER → 2020-03-04 11:10 | Outpatient (CLI) | payer OTHER, MEDICARE, SELFPAY ==
--- NOTE | 2020-03-04 11:13 | DI.US.S_ITS ---
PROCEDURE: US ABDOMEN COMPLETE INDICATIONS: ABDOMINAL PAIN RULE OUT KIDNEY STONES TECHNIQUE: Real-time scanning was performed of the abdominal and retroperitoneal organs, with image documentation. COMPARISON: None. FINDINGS: This study is limited by body habitus. Liver: The liver demonstrates prominent size. The liver demonstrates generalized increased echogenicity. This decreases ultrasound sensitivity for detection of hepatic masses. Inferior to the right liver, there is a hypoechoic structure seen. Gallbladder: Removed. Biliary ducts: Intrahepatic bile ducts are non-dilated. Extrahepatic bile duct caliber measures 7 mm. Normal is 6-7 mm or less in diameter, or 10 mm or less post-cholecystectomy. Pancreas: Visualized portions of the pancreas are sonographically normal. Spleen: Spleen is normal in size and homogeneous in echotexture. Kidneys: Kidneys are normal in size and echotexture. Right kidney measures 13.8 cm long; left kidney measures 12.8 cm long. No hydronephrosis or nephrolithiasis. No solid masses. Aorta: Visualized aorta is normal in caliber at less than 3 cm. Iliacs: Not seen. IVC: Intrahepatic inferior vena cava is patent. Miscellaneous: No free abdominal fluid. IMPRESSION: No kidney stones are seen. No hydronephrosis. Status post cholecystectomy, without biliary dilatation. Enlarged, fatty liver. Inferior to the right lobe of the liver, there is a hypoechoic structure. When correlation is made with the prior CT examination, this is felt most likely to represent the normal hepatic flexure of the colon. Attention should be paid to this area on any future follow-up studies. Scan quality limited by body habitus. Dictated by: Ethan Bunch M.D. on 03/04/2020 at 11:53 Approved by: Ethan Bunch M.D. on 03/04/2020 at 11:56
== END ==
PROVIDERS: PCP Internal Medicine; Referring Provider Registered Nurse; Visit Provider Registered Nurse
DX: K76.0 Fatty (change of) liver, not elsewhere classified (principal); R10.9 Unspecified abdominal pain
CPT/HCPCS: 76700

== ENCOUNTER 2020-06-09 15:22 | Emergency (ER) | payer OTHER, MEDICARE, SELFPAY ==
[2020-06-09 15:28] VITALS: BP 164/120; PULSE 64; RESP 16; TEMP 36.7; O2SAT 97; BMI 52.4
--- NOTE | 2020-06-09 15:31 | DI.RAD.S_ITS ---
PROCEDURE: XR HIP W PEL IF DONE LT 2V INDICATIONS: unable to bear weight left hip pain TECHNIQUE: AP pelvis with lateral view(s) of the left hip(s). COMPARISON: None. FINDINGS: Bones: No fractures or dislocations. Pelvic ring appears intact. No suspicious bony lesions. Soft tissues: The visualized bowel gas pattern is normal. No suspicious soft tissue calcifications. 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 No trauma. Dictated by: Martín Sheffield M.D. on 06/09/2020 at 16:03 Approved by: Martín Sheffield M.D. on 06/09/2020 at 16:03
[2020-06-09 18:41] VITALS: BP 142/62; PULSE 67; RESP 18; O2SAT 94
--- NOTE | 2020-06-09 19:02 | ED_ITS ---
HPI - Extremity Injury (Lower) General Chief Complaint: Extremity Injury, Lower Stated Complaint: SEVERE LEFT SIDE HIP AND BACK PAIN Time Seen by Provider: 06/09/20 18:47 Source: patient Mode of arrival: Wheelchair Limitations: no limitations History of Present Illness HPI Narrative: The patient bent over at her home about noon today. She felt a pop in her left pelvis area. She has ongoing pain since the incident. There was no fall, no additional injury. She denies incontinence. She has no numbness or weakness in the left leg. She is ambulatory. She has a history of osteoarthritis. She does not suffer from chronic low back pain. She has no prior history of hip problems. She is anticoagulated due to AFib. Related Data Home Medications Medication Instructions Recorded Confirmed flecainide 25 mg PO BID 11/14/18 03/02/20 hydroxychloroquine 200 mg tablet 200 mg PO BID 03/26/19 03/02/20 aspirin 81 mg tablet,delayed 81 mg PO DAILY 07/16/19 03/02/20 release dabigatran etexilate 150 mg capsule 150 mg PO BID cap 07/16/19 03/02/20 metoprolol succinate 25 mg 75 mg PO QDAY tab 09/10/19 03/02/20 tablet,extended release 24 hr methotrexate sodium 2.5 mg tablet 10 mg PO QWEEK tab 10/03/19 03/02/20 prednisone 5 mg tablet 5 mg PO DAILY PRN 10/03/19 03/02/20 Previous Rx's Medication Instructions Recorded atorvastatin 40 mg tablet 40 mg PO DAILY #30 tab 07/16/19 hydrochlorothiazide 25 mg tablet 25 mg PO QDAY #90 tab 07/30/19 albuterol sulfate 90 mcg/actuation 2 puff INHALATION QID PRN #54 gram 02/13/20 aerosol inhaler tramadol 50 mg PO Q6H PRN #20 tab 06/09/20 Allergies Allergy/AdvReac Type Severity Reaction Status Date / Time levofloxacin [From LEVAQUIN] Allergy Intermediate rash and Verified 06/09/20 19:50 tendon pain nickel [NICKEL] Allergy Intermediate RASH Verified 06/09/20 19:50 codeine Allergy Mild Anaphylaxis Verified 06/09/20 19:50 Sulfa (Sulfonamide Allergy Mild HIVES Verified 06/09/20 19:50 Antibiotics) metronidazole [From FLAGYL] AdvReac Mild headache Verified 06/09/20 19:50 morphine AdvReac Mild DROPS Verified 06/09/20 19:50 RESPIRATORY RATE Review of Systems Constitutional Constitutional: Denies body ache(s), Denies chills, Denies fever(s) and Denies headache(s) ENT Ears, Nose, Mouth, and Throat: Denies headache(s) and Denies sore throat Cardiovascular Comments: History of AFib. Gastrointestinal Gastrointestinal: Denies abdominal pain, Denies nausea and Denies vomiting Genitourinary Comments: No incontinence Musculoskeletal Musculoskeletal: Reports as per HPI Integumentary/Breasts Skin/Breast: Denies pruritus, Denies erythema, Denies rash and Denies wounds Neurologic Neurologic: Denies headache(s) Comments: No motor or sensory deficits to the lower extremities. Patient History Medical History (Updated 06/09/20 @ 19:12 by Néstor Jonas MD) Actinic keratosis Anesthesia Cardiac arrhythmia Diverticulosis of large intestine without perforation or abscess without bleeding Fibroids (~2009) Fibromyalgia (~1999) Frequent UTI (~1979) Heavy menstrual period (~2009) Hypertension, essential (~1999) Irritable bowel syndrome (~2011) Kidney stones (~1979) Major depression in complete remission (06/17/11) Measles (~1959) Mild intermittent asthma without complication (07/10/15) Morbid obesity Mumps (~1957) Paroxysmal atrial fibrillation (~2012) Personal history of stroke with current residual effects (~06/2019) Rheumatoid arthritis (06/17/11) Sjogren's syndrome (~1962) Vision disorder Surgical History History of salpingectomy (~01/30/17) History of surgery History of third molar tooth extraction S/P laparoscopic supracervical hysterectomy S/P left colectomy Status post breast reduction (~1999) Status post cholecystectomy Status post dilation and curettage Status post hysterectomy with oophorectomy (01/30/17) Status post panniculectomy (~01/30/17) Status post surgery (07/28/09) Status post surgery (12/26/16) Status post tonsillectomy and adenoidectomy (~1962) Status post tubal ligation Family History Brother Fam hx-ischem heart disease Heart disease Father Fam hx-ischem heart disease Hypertension Crohns disease Grandfather Heart disease Grandmother Mental health problem Mother Family hx of lung cancer Fam hx-ischem heart disease Cancer Hypertension Grandfather Hypertension Stroke Grandmother Hypertension Stroke Son Family history of Hodgkin's disease Social History marital status: number of children: 4 household members: none lives independently: Yes caregiver/support person: No housing: house pets and animals: Yes education level: other occupational status: employed current occupational exposures/hazards: 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[employer] / [employer] leisure activities: exercise Smoking Status: Never smoker Tobacco: How many years used: 0 quit status: quit date established second hand exposure: Yes alcohol intake: never substance use type: does not use Smoking Status: Never smoker alcohol intake frequency: holidays/special occasions only Substance Use Type: does not use Exam Initial Vital Signs Initial Vital Signs: Vital Signs Temperature 98.0 F 06/09/20 15:28 Pulse Rate 64 06/09/20 15:28 Respiratory Rate 16 06/09/20 15:28 Blood Pressure 164/120 H 06/09/20 15:28 Pulse Oximetry 97 06/09/20 15:28 Const General: cooperative and well developed Nutritional Appearance: well nourished [facility] Head: normocephalic and atraumatic Resp Auscultation: clear to auscultation bilaterally Cardio Rate: regular rate Rhythm: regular rhythm Heart Sounds: S1 normal, S2 normal, no click, no gallops, no murmurs and no rubs Pulses: normal peripheral pulses Back/Spine/Pelvis Other: No lumbar tenderness. Focal tenderness over the left SI joint. Pain is exacerbated with adduction or abduction or external rotation of left hip. Skin General: no rashes or lesions noted Neuro General: patient alert, patient oriented x3, gait normal and no focal motor deficits Speech: speech normal Extrem General: full ROM, no clubbing, cyanosis or edema, no pedal edema and no calf tenderness Other: Left hip is nontender. Normal range of motion left hip without discomfort. Hip manipulation exacerbates left SI tenderness. The left leg is otherwise intact. The left dorsalis pedis pulses normal. Course Course Course Narrative: The patient is anticoagulated, taking Coumadin due to AFib. Her heart rhythm is currently regular. I treated her with Dilaudid and Tylenol, avoiding NSAIDs. She feels better at time of discharge. She was discharged on Tramadol and Tylenol, with advice to follow-up with her PCM. Physical therapy may be warranted if she does not improve quickly. Orders Ordered: ED Orders 06/09/20 15:31 XR hip w pel if done LT 2V Stat Discontinued Medications Acetaminophen (Acetaminophen 325 Mg Tablet) 975 mg PO NOW ONE Stop: 06/09/20 19:04 Last Admin: 06/09/20 19:34 Dose: 975 mg Documented by: DYLAN Hydromorphone HCl (Hydromorphone 1 Mg Inj) 1 mg IM NOW ONE Stop: 06/09/20 19:04 Last Admin: 06/09/20 19:34 Dose: 1 mg Documented by: DYLAN Tramadol HCl (Tramadol 50 Mg Prepack) 1 bottle MISC SEEINSTR ONE Stop: 06/09/20 19:27 Last Admin: 06/09/20 19:33 Dose: 1 bottle Documented by: DYLAN Vital Signs Vital signs: Vital Signs - 8 hr 06/09/20 18:41 06/09/20 19:58 Pulse Rate 67 60 Respiratory Rate 18 16 Blood Pressure 142/62 H 129/59 L Pulse Oximetry 94 99 MDM - Extremity Injury (Lower) Imaging Data Pelvis XR: Radiologist's Impression: 43 Néstor Jonas MD Find Patient Imaging - Daya Laboy 69 F 1950 ACTIVITY DATE EXAM STATUS AUTHOR 06/09/20 15:[address] [id number] ReportSigned Patient: Daya Laboy JMR#: [id number]: 1950cct:[id number]/Sex: 69 / FDate of Service: 06/09/20Loc: EDAccession Number: [id number] Procedure: XR hip w pel if done LT 2V Ordering Provider: Ene Deleon D.O. PROCEDURE: XR HIP W PEL IF DONE LT 2V INDICATIONS: unable to bear weight left hip pain TECHNIQUE: AP pelvis with lateral view(s) of the left hip(s). COMPARISON: None. FINDINGS: Bones: No fractures or dislocations. Pelvic ring appears intact. No suspicious bony lesions. Soft tissues: The visualized bowel gas pattern is normal. No suspicious soft tissue calcifications. 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 No trauma. Dictated by: Martín Sheffield M.D. on 06/09/2020 at 16:03 Discharge Plan Departure Patient Disposition: Home Clinical Impression: Sacroiliac joint dysfunction of left side Instructions: DI Sacroiliac Joint Dysfunction Activity Restrictions/Additional Instructions: Tylenol 2 tablets every 4 hours as needed for pain. Tramadol every 6 hours as needed for added pain control. If not improving within the next 3 days contact her doctor. You may benefit from physical therapy if symptoms continue. Return here as necessary. Prescriptions: New tramadol 50 mg tablet 50 mg PO Q6H PRN (Reason: pain) Qty: 20 RF: 0 No Action hydrochlorothiazide 25 mg tablet 25 mg PO QDAY Qty: 90 RF: 3 albuterol sulfate 90 mcg/actuation HFA aerosol inhaler 2 puff INHALATION QID PRN (Reason: shortness of breath or wheezing) Qty: 54 RF: 3 hydroxychloroquine 200 mg tablet 200 mg PO BID RF: 0 metoprolol succinate [Toprol XL] 25 mg tablet extended release 24 hr 75 mg PO QDAY RF: 0 prednisone 5 mg tablet 5 mg PO DAILY PRN (Reason: immune issues) RF: 0 methotrexate sodium 2.5 mg tablet 10 mg PO QWEEK RF: 0 Pradaxa 150 mg capsule 150 mg PO BID RF: 0 aspirin [Aspir-Low] 81 mg tablet,delayed release (DR/EC) 81 mg PO DAILY RF: 0 atorvastatin 40 mg tablet 40 mg PO DAILY Qty: 30 RF: 3 flecainide 50 mg tablet 25 mg PO BID RF: 0 Referrals: Anil Sommers MD [Primary Care Provider] -
[2020-06-09] MEDS: TRAMADOL 50 MG PREPACK 1 BOTTLE MISC (19:33)
[2020-06-09] MEDS: ACETAMINOPHEN 325 MG TABLET 975 MG PO (19:34)
[2020-06-09] MEDS: HYDROMORPHONE 1 MG INJ IM (19:34)
[2020-06-09 19:58] VITALS: BP 129/59; PULSE 60; RESP 16; O2SAT 99
== END 2020-06-09 19:58 | disposition home or self-care (01) ==
PROVIDERS: Emergency Provider Emergency Medicine; PCP Internal Medicine
DX: M53.3 Sacrococcygeal disorders, not elsewhere classified (principal); I48.91 Unspecified atrial fibrillation; Z79.01 Long term (current) use of anticoagulants; I10 Essential (primary) hypertension; E66.01 Morbid (severe) obesity due to excess calories; Z68.43 Body mass index [BMI] 50.0-59.9, adult
CPT/HCPCS: 73502; 96372; 99283; J1170

== ENCOUNTER 2020-08-02 22:48 | Emergency (ER) | payer OTHER, MEDICARE, SELFPAY ==
[2020-08-02 22:59] VITALS: BP 137/66; PULSE 64; RESP 14; TEMP 36.4; O2SAT 98; BMI 53.1
[2020-08-02] MEDS: SODIUM CHLORIDE 0.9% 1,000 ML 1000 ML IV (23:12)
[2020-08-02] MEDS: ONDANSETRON 4 MG/2 ML INJ IV (23:13)
[2020-08-02] MEDS: HYDROMORPHONE 0.5 MG INJ IV ×2 (23:13→23:41)
[2020-08-02 23:15] LABS: Add Manual Diff / Slide Review NO; Basophils Absolute Auto 100 /uL (0-100); Basophils Percent Auto 0.8 % (0-2); Eosinophils Absolute Auto 200 /uL (0-450); Eosinophils Percent Auto 1.4 % (2-4); Hematocrit 44.4 % (36-46); Hemoglobin 14.4 g/dL (12.0-16.0); Lymphocytes Absolute Auto 3000 /uL (1100-4500); Mean Corpuscular HGB Conc 32.5 % (30-36); Mean Corpuscular Hemoglobin 28.4 PG (26-34); Mean Corpuscular Volume 87.4 fL (80-100); Monocytes Absolute Auto 900 /uL (0-900); Monocytes Percent Auto 6.6 % (3-14); Neutrophils Absolute Auto 9900 /uL (1500-7000); Neutrophils Percent Auto 70.2 % (50-75); Platelet Count 283 X10^3/uL (150-400); Red Blood Cell Count 5.07 X10^6/uL (4.0-5.2); Red Cell Distribution Width 15.8 % (11.6-14.8); White Blood Cell Count 14.1 X10^3/uL (4.5-11.0)
[2020-08-02 23:19] VITALS: PULSE 60; O2SAT 96
[2020-08-02 23:20] LABS: INR 1.1 (0.9-1.3)
[2020-08-02 23:23] LABS: PTT Partial Thromboplastin Tim 47 SECONDS (26.4-36.2)
[2020-08-02 23:26] LABS: Alanine Aminotransferase 19 IU/L (<35); Albumin 4.1 g/dL (3.5-5.0); Albumin Globulin Ratio 1.3 (1.0-2.8); Alkaline Phosphatase 93 U/L (38-126); Aspartate Aminotransferase 23 IU/L (14-36); BUN Creatinine Ratio 32.4 (6-22); Bilirubin Total 0.3 mg/dL (0.2-1.3); Blood Urea Nitrogen 22 mg/dL (7-17); Calcium 9.6 mg/dL (8.4-10.2); Carbon Dioxide 29 mmol/L (22-32); Chloride 101 mmol/L (98-107); Estimated Glomerular Filt Rate > 60.0 mL/min (>60); Globulin 3.2 g/dL (1.7-4.1); Glucose 132 mg/dL (80-110); HEMOLYSIS < 15 (0-50); Lipase 77 U/L (23-300); Potassium 4.1 mmol/L (3.4-5.1); Sodium 138 mmol/L (137-145); Total Protein 7.3 g/dL (6.3-8.2)
[2020-08-02 23:30] VITALS: PULSE 57; RESP 20; O2SAT 97
[2020-08-02 23:44] VITALS: BP 147/66; PULSE 59; RESP 18; O2SAT 97
--- NOTE | 2020-08-02 23:46 | DI.CT.S_ITS ---
PROCEDURE: CT ABDOMEN PELVIS W CON INDICATIONS: acute abdominal pain TECHNIQUE: After the administration of intravenous contrast, 5 mm thick sections acquired from the diaphragm to the symphysis. 5 mm coronal and sagittal reformats were acquired. For radiation dose reduction, the following was used: automated exposure control, adjustment of mA and/or kV according to patient size. COMPARISON: [facility], CT, CT ABDOMEN PELVIS W CON, 06/04/2019, 20:13. FINDINGS: Image quality: Excellent. ABDOMEN: Lung bases: Lung bases are clear. Heart size is normal. Solid organs: Liver is enlarged with steatosis. Gallbladder has been removed. Biliary system is non dilated. Pancreas enhances normally. Spleen is normal in size and enhancement. No adrenal nodules. Kidneys demonstrate normal size and enhancement, without hydronephrosis. Peritoneum and bowel: Small bowel loops demonstrate prominent fluid-filled dilation. Dilated loop extend into a ventral hernia. There is appearance mild inflammatory stranding at the hernia site. Collapsed bowel is also noted exiting the hernia.. No free fluid or air. Appendix is normal. Nodes and vessels: No retroperitoneal or mesenteric adenopathy by size criteria. Aorta and inferior vena cava are normal in size. Miscellaneous: No ventral hernias. PELVIS: Genitourinary: Bladder wall thickness is normal. Miscellaneous: No inguinal hernias or adenopathy. Bones: No suspicious bony lesions. No vertebral body compression fractures. IMPRESSION: 1. Dilated, fluid-filled loops of small bowel felt to be secondary to partial obstruction at ventral hernia. Developing incarceration/strangulation cannot be definitively excluded, given presence of inflammatory stranding. The above findings are concordant with preliminary report. Dictated by: Glory Herbert M.D. on 08/03/2020 at 9:11 Approved by: Glory Herbert M.D. on 08/03/2020 at 10:03
[2020-08-03] VITALS (8 sets, daily range): BP systolic 116; BP diastolic 57; PULSE 57–67; RESP 17–22; O2SAT 93–97
--- NOTE | 2020-08-03 00:28 | ED.ABDPAIN ---
HPI - Abdominal Pain General Chief Complaint: Abdominal Pain Stated Complaint: states severe abdominal pain Time Seen by Provider: 08/02/20 23:03 Source: patient Mode of arrival: Ambulatory Limitations: no limitations History of Present Illness HPI narrative: 69-year-old woman with morbid obesity, Sjogren syndrome, recurrent ventral hernia and complications with abdominal hernia mesh, and paroxysmal atrial fibrillation anticoagulated on dabigatran presents with severe mid abdominal pain abruptly starting at approximately 7:00 p.m. after dinner at 5:00 p.m.. She describes it as just inferior to the umbilicus dramatically severe and radiating through to her back. It is causing her to be nauseated but she has not actually vomited. She had a bowel movement that was normal this morning. She describes no fever, cough, palpitations, headache or acute neurologic findings. Related Data Home Medications Medication Instructions Recorded Confirmed flecainide 25 mg PO BID 11/14/18 07/10/20 hydroxychloroquine 200 mg tablet 200 mg PO BID 03/26/19 07/10/20 aspirin 81 mg tablet,delayed 81 mg PO DAILY 07/16/19 07/10/20 release dabigatran etexilate 150 mg capsule 150 mg PO BID cap 07/16/19 07/10/20 metoprolol succinate 25 mg 75 mg PO QDAY tab 09/10/19 07/10/20 tablet,extended release 24 hr methotrexate sodium 2.5 mg tablet 10 mg PO QWEEK tab 10/03/19 07/10/20 prednisone 5 mg tablet 5 mg PO DAILY PRN 10/03/19 07/10/20 Previous Rx's Medication Instructions Recorded atorvastatin 40 mg tablet 40 mg PO DAILY #30 tab 07/16/19 albuterol sulfate 90 mcg/actuation 2 puff INHALATION QID PRN #54 gram 02/13/20 aerosol inhaler cephalexin 250 mg capsule 250 mg PO TID #21 cap 07/10/20 phenazopyridine 200 mg tablet 200 mg PO TID #6 tab 07/10/20 hydrochlorothiazide 25 mg tablet 25 mg PO QDAY #90 tab 07/13/20 Allergies Allergy/AdvReac Type Severity Reaction Status Date / Time levofloxacin [From LEVAQUIN] Allergy Intermediate rash and Verified 08/02/20 22:59 tendon pain nickel [NICKEL] Allergy Intermediate RASH Verified 08/02/20 22:59 codeine Allergy Mild Anaphylaxis Verified 08/02/20 22:59 Sulfa (Sulfonamide Allergy Mild HIVES Verified 08/02/20 22:59 Antibiotics) metronidazole [From FLAGYL] AdvReac Mild headache Verified 08/02/20 22:59 morphine AdvReac Mild DROPS Verified 08/02/20 22:59 RESPIRATORY RATE Review of Systems Review of Systems Narrative: All systems reviewed and are unremarkable except as noted in the HPI 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) Measles (~1959) Mild intermittent asthma without complication (07/10/15) Morbid obesity Mumps (~1957) Paroxysmal atrial fibrillation (~2012) Personal history of stroke with current residual effects (~06/2019) Rheumatoid arthritis (06/17/11) Sjogren's syndrome (~1962) Urinary tract infection Vision disorder Surgical History History of salpingectomy (~01/30/17) History of surgery History of third molar tooth extraction S/P laparoscopic supracervical hysterectomy S/P left colectomy Status post breast reduction (~1999) Status post cholecystectomy Status post dilation and curettage Status post hysterectomy with oophorectomy (01/30/17) Status post panniculectomy (~01/30/17) Status post surgery (07/28/09) Status post surgery (12/26/16) Status post tonsillectomy and adenoidectomy (~1962) Status post tubal ligation Family History Brother Fam hx-ischem heart disease Heart disease Father Fam hx-ischem heart disease Hypertension Crohns disease Grandfather Heart disease Grandmother Mental health problem Mother Family hx of lung cancer Fam hx-ischem heart disease Cancer Hypertension Grandfather Hypertension Stroke Grandmother Hypertension Stroke Son Family history of Hodgkin's disease Social History marital status: number of children: 4 household members: none lives independently: Yes caregiver/support person: No housing: house pets and animals: Yes education level: other occupational status: employed current occupational exposures/hazards: Yes mirian/latter-day: [employer] leisure activities: exercise Smoking Status: Never smoker Tobacco: How many years used: 0 quit status: quit date established second hand exposure: Yes alcohol intake: never substance use type: does not use Smoking Status: Never smoker alcohol intake frequency: 0-2 drinks per day Substance Use Type: does not use Exam Narrative Exam Narrative: General: Morbidly obese in obvious pain but Able to give a complete and coherent history. Well-nourished well-developed HEENT: Moist mucous membranes, normal sclera with reactive pupils, Neck: No JVD, supple Respiratory: Lungs are clear to auscultation, no wheezing no rales no rhonchi. Full and symmetrical air movement Cardiac: Regular rate and rhythm no murmurs no bruits Abdomen: Obese, firm, rushes of bowel tones, approximately 5 x 5 cm fullness just inferior and to the right side of the umbilicus with concerns for an incarcerated abdominal wall hernia. Significantly tender Skin: Warm and dry, no rashes Neurologic: Grossly neurologically intact with no obvious asymmetries or abnormalities Extremities: No trauma, well perfused Psych: Cooperative, appropriate insight and affect Initial Vital Signs Initial Vital Signs: Vital Signs Temperature 97.6 F 08/02/20 22:59 Pulse Rate 64 08/02/20 22:59 Respiratory Rate 14 08/02/20 22:59 Blood Pressure 137/66 08/02/20 22:59 Pulse Oximetry 98 08/02/20 22:59 Course Orders Ordered: ED Orders 08/02/20 23:00 Complete Blood Count AUTO DIFF Stat Comprehensive Metabolic Panel Stat Lipase Stat Partial Thromboplastin Time Stat Prothrombin Time INR Stat 08/02/20 23:18 EKG-12 Lead Stat 08/02/20 23:46 CT abdomen pelvis w con Stat 08/02/20 23:50 COVID19 - ADMIT ([facility] swab/PCR) Stat Discontinued Medications Hydromorphone HCl (Hydromorphone 0.5 Mg Inj) 0.5 mg IV Q15MIN PRN PRN Reason: Pain, Last Admin: 08/03/20 02:46 Dose: 0.5 mg Documented by: MARCO ANTONIO Admin: 08/03/20 00:50 Dose: 0.5 mg Documented by: Admin: 08/02/20 23:41 Dose: 0.5 mg Documented by: Admin: 08/02/20 23:13 Dose: 0.5 mg Documented by: KENNY Sodium Chloride (Normal Saline 0.9%) 1,000 mls @ 1,000 mls/hr IV BOLUS ONE Stop: 08/03/20 00:03 Last Infusion: 08/03/20 00:45 Dose: 0 mls/hr Documented by: Admin: 08/02/20 23:12 Dose: 1,000 mls/hr Documented by: KENNY Idarucizumab (Idarucizumab 2.5 Gm/50 Ml Vial) 5 gm IV NOW ONE Stop: 08/03/20 01:20 Last Admin: 08/03/20 03:02 Dose: Not Given Documented by: JONNATHAN Ondansetron HCl (Ondansetron 4 Mg/2 Ml Inj) 4 mg IV NOW ONE Stop: 08/02/20 23:05 Last Admin: 08/02/20 23:13 Dose: 4 mg Documented by: KENNY Vital Signs Vital signs: Vital Signs - 8 hr 08/02/20 22:59 08/02/20 23:19 08/02/20 23:30 Temperature 97.6 F Pulse Rate 64 60 57 L Respiratory Rate 14 20 Blood Pressure 137/66 Pulse Oximetry 98 96 97 08/02/20 23:44 08/03/20 00:11 08/03/20 00:30 Temperature Pulse Rate 59 L 67 64 Respiratory Rate 18 18 Blood Pressure 147/66 H Pulse Oximetry 97 96 93 08/03/20 01:00 08/03/20 01:30 08/03/20 02:00 Temperature Pulse Rate 61 63 66 Respiratory Rate 18 22 21 Blood Pressure Pulse Oximetry 94 97 96 08/03/20 02:30 08/03/20 03:00 08/03/20 03:30 Temperature Pulse Rate 57 L 65 63 Respiratory Rate 22 17 22 Blood Pressure 116/57 L Pulse Oximetry 97 95 93 MDM - Abdominal Pain Medical Records Attestation: I reviewed the patient's medical records. Lab Data Attestation: I reviewed the patient's lab results. Result diagrams: 08/02/20 23:00 08/02/20 23:00 Labs: Lab Results 08/02/20 08/02/20 08/02/20 Range/Units 23:00 23:00 23:00 WBC 14.1 H (4.5-11.0) X10^3/uL RBC 5.07 (4.0-5.2) X10^6/uL Hgb 14.4 (12.0-16.0) g/dL Hct 44.4 (36-46) % MCV 87.4 (80-100) fL MCH 28.4 (26-34) PG MCHC 32.5 (30-36) % RDW 15.8 H (11.6-14.8) % Plt Count 283 (150-400) X10^3/uL Neut % (Auto) 70.2 (50-75) % Lymph % (Auto) 21.0 L (25-40) % [place] % (Auto) 6.6 (3-14) % Eos % (Auto) 1.4 L (2-4) % Baso % (Auto) 0.8 (0-2) % Neut # (Auto) 9900 H (9057-7865) /uL Lymph # (Auto) 3000 (2442-4917) /uL [place] # (Auto) 900 (0-900) /uL Eos # (Auto) 200 (0-450) /uL Baso # (Auto) 100 (0-100) /uL PT 12.0 (10.1-12.7) SECONDS INR 1.1 (0.9-1.3) APTT 47 H D (26.4-36.2) SECONDS Sodium 138 (137-145) mmol/L Potassium 4.1 (3.4-5.1) mmol/L Chloride 101 (98-107) mmol/L Carbon Dioxide 29 (22-32) mmol/L BUN 22 H (7-17) mg/dL Creatinine 0.68 (0.52-1.04) mg/dL Estimated GFR > 60.0 (>60) mL/min BUN/Creatinine Ratio 32.4 H (6-22) Glucose 132 H (80-110) mg/dL Calcium 9.6 (8.4-10.2) mg/dL Total Bilirubin 0.3 (0.2-1.3) mg/dL AST 23 (14-36) IU/L ALT 19 (<35) IU/L Alkaline Phosphatase 93 (38-126) U/L Total Protein 7.3 (6.3-8.2) g/dL Albumin 4.1 (3.5-5.0) g/dL Globulin 3.2 (1.7-4.1) g/dL Albumin/Globulin Ratio 1.3 (1.0-2.8) Lipase 77 (23-300) U/L SARS-CoV-2 (PCR) (Negative) 08/02/20 Range/Units 23:50 WBC (4.5-11.0) X10^3/uL RBC (4.0-5.2) X10^6/uL Hgb (12.0-16.0) g/dL Hct (36-46) % MCV (80-100) fL MCH (26-34) PG MCHC (30-36) % RDW (11.6-14.8) % Plt Count (150-400) X10^3/uL Neut % (Auto) (50-75) % Lymph % (Auto) (25-40) % [place] % (Auto) (3-14) % Eos % (Auto) (2-4) % Baso % (Auto) (0-2) % Neut # (Auto) (6278-3809) /uL Lymph # (Auto) (2452-7824) /uL [place] # (Auto) (0-900) /uL Eos # (Auto) (0-450) /uL Baso # (Auto) (0-100) /uL PT (10.1-12.7) SECONDS INR (0.9-1.3) APTT (26.4-36.2) SECONDS Sodium (137-145) mmol/L Potassium (3.4-5.1) mmol/L Chloride (98-107) mmol/L Carbon Dioxide (22-32) mmol/L BUN (7-17) mg/dL Creatinine (0.52-1.04) mg/dL Estimated GFR (>60) mL/min BUN/Creatinine Ratio (6-22) Glucose (80-110) mg/dL Calcium (8.4-10.2) mg/dL Total Bilirubin (0.2-1.3) mg/dL AST (14-36) IU/L ALT (<35) IU/L Alkaline Phosphatase (38-126) U/L Total Protein (6.3-8.2) g/dL Albumin (3.5-5.0) g/dL Globulin (1.7-4.1) g/dL Albumin/Globulin Ratio (1.0-2.8) Lipase (23-300) U/L SARS-CoV-2 (PCR) Negative (Negative) Point of care testing: Urine Dip Bedside Urine Glucose Negative Bedside Urine Bilirubin - Negative Bedside Urine Ketone - Negative Urine Specific [place] 1.010 Bedside Urine Occult Blood - Negative Bedside Urine pH 5.5 Bedside Urine Protein - Negative Bedside Urine Urobilinogen - Negative Bedside Urine Nitrite - Negative Bedside Urine Leukocytes - Negative Esterase Imaging Data CT scan - abdomen/pelvis: Radiologist's Impression: Large ventral hernia resulting in moderate partial small-bowel obstruction. Mild inflammatory stranding just deep to the hernia may indicate incarceration. ECG Data Attestation: I personally reviewed and interpreted this ECG as follows: Interpretation: Sinus rhythm at a rate of [address] T wave changes No acute ischemia MDM Narrative Medical decision making narrative: 69-year-old woman with multiple abdominal surgeries and known ventral hernia with acute onset severe pain central lower abdomen. Clinical exam suggests incarcerated ventral hernia and CT scan Supports this. Pain is severe and has been partially controlled with IV narcotics. She is not currently having vomiting. She is anticoagulated on dabigatran. She is COVID negative. Will review case with surgery. 1am Dr Padilla returns call and has reviewed medical records. Given the multiple abdominal surgeries, morbid obesity, need for anticoagulation reversal and probable ICU stay postoperatively her recommendation is to transfer the patient to facility that is better able to manage all of these needs. Her 1st recommendation was to try [facility]. See if beds are available. Patient is updated on findings. [facility] patient. [facility] consulting doctor, Dr Escobedo, has contacted d[facility] surgeon will return call 2am Care is reveiwed with Dr Bridges, general surgeon. He has reviewed CT scan and suggests a trial of manual reduction of hernia prior to using full resources to transfer patient. If unable to facilitate this, will accept transfer. Reviewed with Dr Padilla again. She feels that the degree of tenderness that I've reported suggests that a simple reduction is not going to be possible and that if sedation is required due to the level of pain (with narcotics on board, pt car barely tolerated even the sheet resting on her abd) that surgical intervention is the most appropriate managment. Given the possible post op complications a larger facility with hospitalists available for ICU comanagement would be most appropriate. Will contacts [facility] to arrange for transfer. Dr Bridges will be accepting doctor. 220 Dr Padilla has been to physically evaluate patient. Feels that a closed reduction is not a safe option and appreciates the help from [facility] surgical services. Waiting for bed avialabilty 230 Dr Bridges requests ER to ER transfer rather than direct admit. Reviewed with Dr Anthony, ER doctor. Will arrange for S transport. Discharge Plan Departure Patient Disposition: [facility] Clinical Impression: Incarcerated ventral hernia, Morbid obesity Prescriptions: No Action albuterol sulfate 90 mcg/actuation HFA aerosol inhaler 2 puff INHALATION QID PRN (Reason: shortness of breath or wheezing) Qty: 54 RF: 3 hydrochlorothiazide 25 mg tablet 25 mg PO QDAY Qty: 90 RF: 3 hydroxychloroquine 200 mg tablet 200 mg PO BID RF: 0 metoprolol succinate [Toprol XL] 25 mg tablet extended release 24 hr 75 mg PO QDAY RF: 0 prednisone 5 mg tablet 5 mg PO DAILY PRN (Reason: immune issues) RF: 0 methotrexate sodium 2.5 mg tablet 10 mg PO QWEEK RF: 0 Pradaxa 150 mg capsule 150 mg PO BID RF: 0 aspirin [Aspir-Low] 81 mg tablet,delayed release (DR/EC) 81 mg PO DAILY RF: 0 atorvastatin 40 mg tablet 40 mg PO DAILY Qty: 30 RF: 3 cephalexin 250 mg capsule 250 mg PO TID Qty: 21 RF: 0 phenazopyridine [Pyridium] 200 mg tablet 200 mg PO TID Qty: 6 RF: 0 flecainide 50 mg tablet 25 mg PO BID RF: 0 Referrals: Anil Sommers MD [Primary Care Provider] -
[2020-08-03] MEDS: HYDROMORPHONE 0.5 MG INJ IV ×2 (00:50→02:46)
[2020-08-03 00:52] LABS: COVID19 - ADMIT (NP swab/PCR) Negative (Negative)
--- NOTE | 2020-08-03 02:36 | PM.CN ---
History of Present Illness Consult details Date Patient Seen: 08/03/20 Time Patient Seen: 02:36 Chief complaint: states severe abdominal pain Reason for consult: Incarcerated hernia Narrative: This is a 69-year-old woman with severe morbid obesity (BMI 53), Sjogren syndrome, chronic recurrent ventral hernia, prior removal of hernia mesh for infection, and paroxysmal atrial fibrillation anticoagulated on dabigatran who came into the ER with acute onset of severe abdominal pain and tenderness which came on after dinner these evening. In the ER her WBC is 14 [address] she has a CT scan which shows a ventral hernia with PSBO. The radiologist notes some associated inflammatory stranding. In the ER the patient is c/o severe pain. She reports that she has been trying to reduce the hernia herself but was not able to do so. ROS: It is causing her to be nauseated but she has not actually vomited. She had a bowel movement that was normal this morning. She describes no fever, cough, palpitations, headache or acute neurologic findings. ROS is otherwise negative other than as mentioned below and in HPI. PE: GENERAL: Alert, in moderate distress due to abdominal pain; Appears stated age. Answers questions promptly and appropriately. Vital signs noted. Severe morbid obesity (BMI 53) HENT: Normocephalic, atraumatic. Hearing intact. EYES: Conjunctiva pink, sclera white, no periorbital swelling. CARDIOVASCULAR: Regular rate. No pedal edema. RESPIRATORY: Non-tachypneic, breathing comfortably on room air. GASTROINTESTINAL: Abdomen soft, obese; there is a tender, non reducible hernia mass in the right mid abdomen just lateral to the umbilicus GENITALURINARY: No flank tenderness. MUSCULOSKELETAL: Equal tone and mass bilaterally. SKIN: Warm, dry, soft, appropriate color for ethnicity. No other lesions, rashes, or wounds. NEURO: Alert and Oriented X 3. No gross sensory deficits, or cognitive issues. PSYCH: Appropriate affect and mood. Meds Home Medications and Allergies Home Medications Medication Instructions Recorded Confirmed Type flecainide 25 mg PO BID 11/14/18 07/10/20 History hydroxychloroquine 200 mg tablet 200 mg PO BID 03/26/19 07/10/20 History aspirin 81 mg tablet,delayed 81 mg PO DAILY 07/16/19 07/10/20 History release atorvastatin 40 mg tablet 40 mg PO DAILY #30 tab 07/16/19 07/10/20 Rx dabigatran etexilate 150 mg capsule 150 mg PO BID cap 07/16/19 07/10/20 History metoprolol succinate 25 mg 75 mg PO QDAY tab 09/10/19 07/10/20 History tablet,extended release 24 hr methotrexate sodium 2.5 mg tablet 10 mg PO QWEEK tab 10/03/19 07/10/20 History prednisone 5 mg tablet 5 mg PO DAILY PRN 10/03/19 07/10/20 History albuterol sulfate 90 mcg/actuation 2 puff INHALATION QID PRN #54 gram 02/13/20 07/10/20 Rx aerosol inhaler cephalexin 250 mg capsule 250 mg PO TID #21 cap 07/10/20 07/10/20 Rx phenazopyridine 200 mg tablet 200 mg PO TID #6 tab 07/10/20 07/10/20 Rx hydrochlorothiazide 25 mg tablet 25 mg PO QDAY #90 tab 07/13/20 Rx Allergies Allergy/AdvReac Type Severity Reaction Status Date / Time levofloxacin [From LEVAQUIN] Allergy Intermediate rash and Verified 08/02/20 22:59 tendon pain nickel [NICKEL] Allergy Intermediate RASH Verified 08/02/20 22:59 codeine Allergy Mild Anaphylaxis Verified 08/02/20 22:59 Sulfa (Sulfonamide Allergy Mild HIVES Verified 08/02/20 22:59 Antibiotics) metronidazole [From FLAGYL] AdvReac Mild headache Verified 08/02/20 22:59 morphine AdvReac Mild DROPS Verified 08/02/20 22:59 RESPIRATORY RATE Exam Vital Signs (past 8 hours): - 08/02/20 22:59 08/02/20 23:19 08/02/20 23:30 Temperature 97.6 F Pulse Rate 64 60 57 L Respiratory Rate 14 20 Blood Pressure 137/66 Pulse Oximetry 98 96 97 08/02/20 23:44 08/03/20 00:11 08/03/20 00:30 Temperature Pulse Rate 59 L 67 64 Respiratory Rate 18 18 Blood Pressure 147/66 H Pulse Oximetry 97 96 93 08/03/20 01:00 08/03/20 01:30 Temperature Pulse Rate 61 63 Respiratory Rate 18 22 Blood Pressure Pulse Oximetry 94 97 Oxygen Delivery Method Room Air Objective Imaging CT scan - abdomen: Radiologist's impression: Prelim read: Large ventral hernia resulting in moderate partial small-bowel obstruction. Mild inflammatory stranding just deep to the hernia may indicate incarceration. Labs Result Diagrams: 08/02/20 23:00 08/02/20 23:00 Labs: Laboratory Results - last 24 hr 08/02/20 08/02/20 08/02/20 23:00 23:00 23:00 WBC 14.1 H RBC 5.07 Hgb 14.4 Hct 44.4 MCV 87.4 MCH 28.4 MCHC 32.5 RDW 15.8 H Plt Count 283 Neut % (Auto) 70.2 Lymph % (Auto) 21.0 L [place] % (Auto) 6.6 Eos % (Auto) 1.4 L Baso % (Auto) 0.8 Neut # (Auto) 9900 H Lymph # (Auto) 3000 [place] # (Auto) 900 Eos # (Auto) 200 Baso # (Auto) 100 PT 12.0 INR 1.1 APTT 47 H D Sodium 138 Potassium 4.1 Chloride 101 Carbon Dioxide 29 BUN 22 H Creatinine 0.68 Estimated GFR > 60.0 BUN/Creatinine Ratio 32.4 H Glucose 132 H Calcium 9.6 Total Bilirubin 0.3 AST 23 ALT 19 Alkaline Phosphatase 93 Total Protein 7.3 Albumin 4.1 Globulin 3.2 Albumin/Globulin Ratio 1.3 Lipase 77 SARS-CoV-2 (PCR) 08/02/20 23:50 WBC RBC Hgb Hct MCV MCH MCHC RDW Plt Count Neut % (Auto) Lymph % (Auto) [place] % (Auto) Eos % (Auto) Baso % (Auto) Neut # (Auto) Lymph # (Auto) [place] # (Auto) Eos # (Auto) Baso # (Auto) PT INR APTT Sodium Potassium Chloride Carbon Dioxide BUN Creatinine Estimated GFR BUN/Creatinine Ratio Glucose Calcium Total Bilirubin AST ALT Alkaline Phosphatase Total Protein Albumin Globulin Albumin/Globulin Ratio Lipase SARS-CoV-2 (PCR) Negative Assessment & Plan Assessment and plan (1) Morbid obesity with BMI of 50.0-59.9, adult: Status: Acute (2) Incarcerated ventral hernia: Status: Acute (3) Paroxysmal atrial fibrillation: Status: Chronic (4) Anticoagulated by anticoagulation treatment: Status: Acute (5) Ventral hernia, recurrent: Status: Chronic (6) Personal history of stroke with current residual effects: Problem details: Right-sided symptoms, primarily upper extremity Status: Chronic Assessment & Plan narrative: This is a 69 yo woman with super morbid obesity, anticoagulated on dabigatran for paroxysmal atrial fibrillation, who came into the ER with an acute exacerbation of a chronic hernia. I initially recommended transfer based on the ER doctor's physical exam findings and CT scan. The tenderness on exam and inflammatory changes noted on CT were concerning for a need for operative intervention. She has had prior mesh hernia repair and mesh removal. This patient's supermorbid obesity, prior abdominal operations, and other comorbidities are concerning for a need for a higher level facility for operative and post operative care. Per the outside surgeon, the hernia should be reduced in the ER. I came into the ER and attempted reduction and found the hernia was not amendable to reduction in the ER. I feel the patient likely deserves surgical intervention in a tertiary center. COVID-19 COVID-19 status: Negative Time Spent With Patient Time with patient: 15-24 minutes
== END 2020-08-03 03:42 | disposition short-term general hospital (02) ==
PROVIDERS: Emergency Provider Emergency Medicine; PCP Internal Medicine
DX: K43.6 Other and unspecified ventral hernia with obstruction, without gangrene (principal); E66.01 Morbid (severe) obesity due to excess calories; Z68.43 Body mass index [BMI] 50.0-59.9, adult; Z20.822 Contact with and (suspected) exposure to COVID-19; I48.0 Paroxysmal atrial fibrillation; Z79.01 Long term (current) use of anticoagulants
CPT/HCPCS: 36415; 74177; 80053; 81003; 83690; 85025; 85610; 85730; 87635; 93005; 93010; 96361; 96374; 96376; 99285; J1170; J2405; Q9967

== ENCOUNTER → 2020-08-13 09:34 | Outpatient (CLI) | payer OTHER, MEDICARE, SELFPAY ==
[2020-08-13 10:14] LABS: Add Manual Diff / Slide Review NO; Basophils Absolute Auto 100 /uL (0-100); Eosinophils Absolute Auto 200 /uL (0-450); Eosinophils Percent Auto 2.6 % (2-4); Hematocrit 44.7 % (36-46); Hemoglobin 14.7 g/dL (12.0-16.0); Lymphocytes Absolute Auto 2600 /uL (1100-4500); Lymphocytes Percent Auto 30.5 % (25-40); Mean Corpuscular HGB Conc 32.9 % (30-36); Mean Corpuscular Hemoglobin 28.8 PG (26-34); Mean Corpuscular Volume 87.4 fL (80-100); Monocytes Absolute Auto 600 /uL (0-900); Monocytes Percent Auto 7.2 % (3-14); Neutrophils Absolute Auto 4900 /uL (1500-7000); Neutrophils Percent Auto 58.7 % (50-75); Platelet Count 256 X10^3/uL (150-400); Red Blood Cell Count 5.11 X10^6/uL (4.0-5.2); Red Cell Distribution Width 15.5 % (11.6-14.8); White Blood Cell Count 8.4 X10^3/uL (4.5-11.0)
[2020-08-13 10:31] LABS: Erythrocyte Sedimentation Rate 32 MM/HR (0-20)
[2020-08-13 10:38] LABS: Alanine Aminotransferase 19 IU/L (<35); Albumin 4.2 g/dL (3.5-5.0); Albumin Globulin Ratio 1.4 (1.0-2.8); Alkaline Phosphatase 80 U/L (38-126); Aspartate Aminotransferase 24 IU/L (14-36); BUN Creatinine Ratio 30.2 (6-22); Bilirubin Total 0.4 mg/dL (0.2-1.3); Blood Urea Nitrogen 19 mg/dL (7-17); C-Reactive Protein Quant 2.4 mg/dL (<1.0); Calcium 9.6 mg/dL (8.4-10.2); Carbon Dioxide 28 mmol/L (22-32); Chloride 101 mmol/L (98-107); Estimated Glomerular Filt Rate > 60.0 mL/min (>60); Globulin 3.1 g/dL (1.7-4.1); Glucose 124 mg/dL (80-110); HEMOLYSIS < 15 (0-50); Potassium 3.8 mmol/L (3.4-5.1); Sodium 138 mmol/L (137-145); Total Protein 7.3 g/dL (6.3-8.2)
== END ==
PROVIDERS: PCP Internal Medicine; Referring Provider Internal Medicine; Visit Provider Internal Medicine
DX: E66.01 Morbid (severe) obesity due to excess calories (principal); I10 Essential (primary) hypertension; K43.6 Other and unspecified ventral hernia with obstruction, without gangrene; Z68.43 Body mass index [BMI] 50.0-59.9, adult
CPT/HCPCS: 36415; 80053; 85025; 85651; 86140; 87040

== ENCOUNTER → 2021-04-13 10:29 | Outpatient (CLI) | payer OTHER, MEDICARE, SELFPAY ==
[2021-04-13 11:13] LABS: COVID19 -Nasal RAPID Negative (Negative)
== END ==
PROVIDERS: PCP Internal Medicine; Referring Provider Nurse Practitioner Family; Visit Provider Nurse Practitioner Family
DX: Z20.822 Contact with and (suspected) exposure to COVID-19 (principal); R05.9 Cough, unspecified; R06.02 Shortness of breath; R09.81 Nasal congestion
CPT/HCPCS: 87635

== ENCOUNTER → 2021-04-13 10:50 | Outpatient (CLI) | payer OTHER, MEDICARE, SELFPAY ==
--- NOTE | 2021-04-13 10:53 | DI.RAD.S_ITS ---
PROCEDURE: XR CHEST 2V INDICATIONS: wheeze, cough TECHNIQUE: 2 views of the chest were acquired. COMPARISON: [facility], , CHEST 2 VIEW, 08/13/2015, 17:02. FINDINGS: Surgical changes and devices: None. Lungs and pleura: Scattered subsegmental atelectasis and/or scarring. No focal consolidation. No pneumothorax or pleural effusion. Mediastinum: Mediastinal contours are normal. Heart size is normal. Bones and chest wall: No suspicious bony abnormalities. Soft tissues appear unremarkable. IMPRESSION: Scattered subsegmental atelectasis and/or scarring. No focal consolidation. Dictated by: Juan Eastman M.D. on 04/13/2021 at 13:02 Approved by: Juan Eastman M.D. on 04/13/2021 at 13:03
[2021-04-13 11:59] LABS: Add Manual Diff / Slide Review NO; Basophils Absolute Auto 100 /uL (0-100); Basophils Percent Auto 0.5 % (0-2); Eosinophils Absolute Auto 200 /uL (0-450); Eosinophils Percent Auto 2.3 % (2-4); Hematocrit 42.9 % (36-46); Hemoglobin 14.2 g/dL (12.0-16.0); Lymphocytes Absolute Auto 2300 /uL (1100-4500); Lymphocytes Percent Auto 23.6 % (25-40); Mean Corpuscular HGB Conc 33.1 % (30-36); Mean Corpuscular Hemoglobin 27.9 PG (26-34); Mean Corpuscular Volume 84.5 fL (80-100); Monocytes Absolute Auto 800 /uL (0-900); Monocytes Percent Auto 8.3 % (3-14); Neutrophils Absolute Auto 6400 /uL (1500-7000); Neutrophils Percent Auto 65.3 % (50-75); Platelet Count 301 X10^3/uL (150-400); Red Blood Cell Count 5.08 X10^6/uL (4.0-5.2); Red Cell Distribution Width 14.6 % (11.6-14.8); White Blood Cell Count 9.8 X10^3/uL (4.5-11.0)
== END ==
LOC: LAB 10:51 → RAD 10:53
PROVIDERS: PCP Internal Medicine; Referring Provider Nurse Practitioner Family; Visit Provider Nurse Practitioner Family
DX: J45.901 Unspecified asthma with (acute) exacerbation (principal); Z20.822 Contact with and (suspected) exposure to COVID-19; R05.9 Cough, unspecified; R06.02 Shortness of breath; R09.81 Nasal congestion
CPT/HCPCS: 36415; 71046; 85025; 87635

== ENCOUNTER → 2021-06-25 10:33 | Outpatient (CLI) | payer OTHER, MEDICARE, SELFPAY ==
[2021-06-25 11:31] LABS: Add Manual Diff / Slide Review NO; Basophils Absolute Auto 100 /uL (0-100); Basophils Percent Auto 1.2 % (0-2); Eosinophils Absolute Auto 200 /uL (0-450); Hematocrit 44.8 % (36-46); Hemoglobin 14.9 g/dL (12.0-16.0); Lymphocytes Absolute Auto 2400 /uL (1100-4500); Mean Corpuscular HGB Conc 33.3 % (30-36); Mean Corpuscular Hemoglobin 27.6 PG (26-34); Mean Corpuscular Volume 82.9 fL (80-100); Monocytes Absolute Auto 500 /uL (0-900); Monocytes Percent Auto 5.5 % (3-14); Neutrophils Absolute Auto 5200 /uL (1500-7000); Neutrophils Percent Auto 62.3 % (50-75); Platelet Count 264 X10^3/uL (150-400); Red Cell Distribution Width 15.6 % (11.6-14.8); White Blood Cell Count 8.3 X10^3/uL (4.5-11.0)
[2021-06-25 11:34] LABS: Appearance Urine UA CLEAR; Bilirubin Urine UA NEGATIVE (NEGATIVE); Color Urine UA YELLOW; Glucose Urine UA NEGATIVE (Negative); Ketones Urine UA NEGATIVE (NEGATIVE); Leukocyte Esterase Urine UA TRACE (NEGATIVE); Nitrite Urine UA POSITIVE (Negative); Occult Blood Urine UA 3+ (Negative); Protein Urine UA 1+ (Negative); Specific Gravity Urine UA >=1.030 (1.000-1.035); Urobilinogen Urine UA 0.2 E.U./dL (0.2)
[2021-06-25 11:38] LABS: INR 1.1 (0.9-1.3); Prothrombin Time 12.9 SECONDS (10.1-12.7)
[2021-06-25 11:49] LABS: Alanine Aminotransferase 14 IU/L (<35); Albumin 3.7 g/dL (3.5-5.0); Albumin Globulin Ratio 1.2 (1.0-2.8); Alkaline Phosphatase 80 U/L (38-126); Aspartate Aminotransferase 22 IU/L (14-36); BUN Creatinine Ratio 20.2 (6-22); Bilirubin Total 0.6 mg/dL (0.2-1.3); Blood Urea Nitrogen 17 mg/dL (7-17); Calcium 9.5 mg/dL (8.4-10.2); Carbon Dioxide 33 mmol/L (22-32); Chloride 104 mmol/L (98-107); Estimated Glomerular Filt Rate > 60.0 mL/min (>60); Globulin 3.1 g/dL (1.7-4.1); Glucose 141 mg/dL (80-110); HEMOLYSIS < 15 (0-50); Potassium 4.1 mmol/L (3.4-5.1); Sodium 139 mmol/L (137-145); Total Protein 6.8 g/dL (6.3-8.2)
[2021-06-25 11:51] LABS: Amorphous Sediment Urine 2+; Bacteria Urine Few (2-10); Culture Indicated Urine Cult Not Indicated; RBC Urine 5-10/HPF (0-5/HPF); Squamous Epithelial Cell Urine 5-10 /HPF (0-5/HPF); WBC Urine 5-10/HPF (0-5/HPF)
== END ==
PROVIDERS: PCP Internal Medicine; Referring Provider Internal Medicine; Visit Provider Internal Medicine
DX: I10 Essential (primary) hypertension (principal); I48.0 Paroxysmal atrial fibrillation; R31.9 Hematuria, unspecified; Z79.01 Long term (current) use of anticoagulants
CPT/HCPCS: 36415; 80053; 81001; 85025; 85610

== ENCOUNTER 2021-08-26 21:42 | Emergency (ER) | payer OTHER, MEDICARE, SELFPAY ==
[2021-08-26 22:11] VITALS: BP 177/102; PULSE 74; RESP 18; O2SAT 94; BMI 51.5
[2021-08-26 22:48] LABS: Appearance Urine UA CLEAR; Bilirubin Urine UA NEGATIVE (NEGATIVE); Color Urine UA YELLOW; Glucose Urine UA NEGATIVE (Negative); Ketones Urine UA NEGATIVE (NEGATIVE); Leukocyte Esterase Urine UA 1+ (NEGATIVE); Nitrite Urine UA NEGATIVE (Negative); Occult Blood Urine UA 3+ (Negative); Protein Urine UA NEGATIVE (Negative); Specific Gravity Urine UA 1.025 (1.000-1.035); Urobilinogen Urine UA 0.2 E.U./dL (0.2)
[2021-08-26 22:49] LABS: pH Urine UA 5.5 (4.5-8.0)
[2021-08-26 23:22] LABS: Bacteria Urine Few (2-10); Culture Indicated Urine Specimen Cultured; RBC Urine 10-30/HPF (0-5/HPF); Squamous Epithelial Cell Urine 1-5 /HPF (0-5/HPF); WBC Urine 1-5/HPF (0-5/HPF)
[2021-08-27] VITALS (10 sets, daily range): BP systolic 128–141; BP diastolic 74–75; PULSE 64–67; O2SAT 94–96
[2021-08-27 00:55] LABS: Add Manual Diff / Slide Review NO; Basophils Absolute Auto 100 /uL (0-100); Basophils Percent Auto 1.1 % (0-2); Eosinophils Absolute Auto 200 /uL (0-450); Eosinophils Percent Auto 1.8 % (2-4); Hematocrit 40.4 % (36-46); Hemoglobin 13.7 g/dL (12.0-16.0); Lymphocytes Absolute Auto 2800 /uL (1100-4500); Lymphocytes Percent Auto 28.1 % (25-40); Mean Corpuscular HGB Conc 33.9 % (30-36); Mean Corpuscular Hemoglobin 28.2 PG (26-34); Monocytes Absolute Auto 800 /uL (0-900); Monocytes Percent Auto 7.7 % (3-14); Neutrophils Absolute Auto 6200 /uL (1500-7000); Neutrophils Percent Auto 61.3 % (50-75); Platelet Count 255 X10^3/uL (150-400); Red Blood Cell Count 4.86 X10^6/uL (4.0-5.2); Red Cell Distribution Width 15.7 % (11.6-14.8); White Blood Cell Count 10.1 X10^3/uL (4.5-11.0)
[2021-08-27 01:12] LABS: Alanine Aminotransferase 18 IU/L (<35); Albumin 3.8 g/dL (3.5-5.0); Albumin Globulin Ratio 1.3 (1.0-2.8); Alkaline Phosphatase 69 U/L (38-126); Aspartate Aminotransferase 26 IU/L (14-36); BUN Creatinine Ratio 31.3 (6-22); Bilirubin Total 0.4 mg/dL (0.2-1.3); Blood Urea Nitrogen 21 mg/dL (7-17); Calcium 8.7 mg/dL (8.4-10.2); Carbon Dioxide 28 mmol/L (22-32); Chloride 106 mmol/L (98-107); Estimated Glomerular Filt Rate > 60.0 mL/min (>60); Globulin 2.9 g/dL (1.7-4.1); Glucose 114 mg/dL (80-110); HEMOLYSIS 28 (0-50); Lipase 72 U/L (23-300); Potassium 4.1 mmol/L (3.4-5.1); Sodium 141 mmol/L (137-145); Total Protein 6.7 g/dL (6.3-8.2)
--- NOTE | 2021-08-27 01:23 | ED.GENADULT ---
HPI - General Adult General Chief complaint: Abdominal Pain Stated complaint: lots of pain Time Seen by Provider: 08/27/21 01:22 Source: patient Mode of arrival: Ambulatory History of Present Illness HPI narrative: 70-year-old woman with a history of atrial fibrillation prior stroke currently on Pradaxa, history of hyperlipidemia, mild asthma and hypertension presents with left flank pain. She states she started noting symptoms earlier today and was concerned that perhaps it was a back strain with some sciatica however over the afternoon and evening it has continued in a colicky type presentation and is now localizing to the left flank and radiating into the left groin. She has not had any fevers, diarrhea, cough, headache, myalgias. She does note that she was diagnosed with and treated for COVID in early July and that diagnosis was made with an episode of gross hematuria as well as epistaxis followed by slight cough, feels that she has completely recovered after that. She is noticing some mild hematuria as of this afternoon without dysuria or urgency. Related Data Home Medications Medication Instructions Recorded Confirmed flecainide 50 mg tablet 25 mg PO BID 11/14/18 07/06/21 hydroxychloroquine 200 mg tablet 200 mg PO BID 03/26/19 07/06/21 aspirin 81 mg tablet,delayed 81 mg PO DAILY 07/16/19 07/06/21 release (Aspir-Low) dabigatran etexilate 150 mg capsule 150 mg PO BID cap 07/16/19 07/06/21 metoprolol succinate 25 mg 75 mg PO QDAY tab 09/10/19 07/06/21 tablet,extended release 24 hr (Toprol XL) methotrexate sodium 2.5 mg tablet 10 mg PO QWEEK tab 10/03/19 07/06/21 prednisone 5 mg tablet 5 mg PO DAILY PRN 10/03/19 07/06/21 Previous Rx's Medication Instructions Recorded atorvastatin 40 mg tablet 40 mg PO DAILY #30 tab 07/16/19 albuterol sulfate 90 mcg/actuation 2 puff INHALATION QID PRN #54 gram 04/13/21 aerosol inhaler ipratropium 0.5 mg-albuterol 3 mg 3 ml INHALATION Q6H PRN #90 ml 04/13/21 (2.5 mg base)/3 mL nebulization soln nebulizer #1 ea 04/13/21 prednisone 20 mg tablet 40 mg PO DAILY #10 tab 04/13/21 doxycycline monohydrate 100 mg 100 mg PO BID #20 tab 06/25/21 tablet hydrochlorothiazide 25 mg tablet 25 mg PO QDAY #90 tab 07/13/21 oxycodone-acetaminophen 5 mg-325 1 tab PO Q6H PRN #14 tab 08/27/21 mg tablet valacyclovir 1 gram tablet 1,000 mg PO TID #21 tab 08/27/21 Allergies Allergy/AdvReac Type Severity Reaction Status Date / Time levofloxacin [From LEVAQUIN] Allergy Intermediate rash and Verified 07/06/21 14:51 tendon pain nickel [NICKEL] Allergy Intermediate RASH Verified 04/13/21 10:20 codeine Allergy Mild Anaphylaxis Verified 04/13/21 10:20 Sulfa (Sulfonamide Allergy Mild HIVES Verified 04/13/21 10:20 Antibiotics) metronidazole [From FLAGYL] AdvReac Mild headache Verified 04/13/21 10:20 morphine AdvReac Mild DROPS Verified 04/13/21 10:20 RESPIRATORY RATE Review of Systems Review of Systems Narrative: Remainder of complete review of systems is otherwise unremarkable except for that included in the HPI. 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) Measles (~1960) Mild intermittent asthma without complication (07/10/15) Morbid obesity Mumps (~1957) Paroxysmal atrial fibrillation (~2012) Personal history of stroke with current residual effects (~06/2019) Rheumatoid arthritis (06/17/11) Sjogren's syndrome (~1962) Urinary tract infection Vision disorder Surgical History History of salpingectomy (~01/30/17) History of surgery History of third molar tooth extraction S/P laparoscopic supracervical hysterectomy S/P left colectomy Status post breast reduction (~1999) Status post cholecystectomy Status post dilation and curettage Status post hysterectomy with oophorectomy (01/30/17) Status post panniculectomy (~01/30/17) Status post surgery (07/28/09) Status post surgery (12/26/16) Status post tonsillectomy and adenoidectomy (~1962) Status post tubal ligation Family History Brother Fam hx-ischem heart disease Heart disease Father Fam hx-ischem heart disease Hypertension Crohns disease Grandfather Heart disease Grandmother Mental health problem Mother Family hx of lung cancer Fam hx-ischem heart disease Cancer Hypertension Grandfather Hypertension Stroke Grandmother Hypertension Stroke Son Family history of Hodgkin's disease Social History marital status: number of children: 4 household members: none lives independently: Yes caregiver/support person: No housing: house pets and animals: Yes education level: other occupational status: employed current occupational exposures/hazards: Yes 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 Able to give a complete and coherent history. Well-nourished well-developed HEENT: Moist mucous membranes, normal sclera with reactive pupils, Respiratory: Lungs are clear to auscultation, no wheezing no rales no rhonchi. Full and symmetrical air movement Cardiac: Regular rate and rhythm no murmurs no bruits Abdomen: Soft, nontender, good bowel tones, left flank pain Skin: Warm and dry, the left posterior L1 distribution she has a erythematous macule with the suggestion of developed pain vesicles but no overt vesicles at this time Neurologic: Grossly neurologically intact with no obvious asymmetries or abnormalities Extremities: No trauma, well perfused Psych: Cooperative, appropriate insight and affect Course Orders Ordered: ED Orders 08/26/21 22:14 Complete Blood Count AUTO DIFF Stat Comprehensive Metabolic Panel Stat Lipase Stat Partial Thromboplastin Time Stat Prothrombin Time INR Stat 08/26/21 22:33 Urinalysis and Microscopic Stat Urine Culture Stat 08/27/21 01:32 CT kidney ureter bladder (KUB) Stat Discontinued Medications Acetaminophen (Acetaminophen 325 Mg Tablet) 975 mg PO NOW ONE Stop: 08/27/21 01:34 Last Admin: 08/27/21 01:37 Dose: 975 mg Documented by: NISA Ondansetron HCl (Ondansetron 4 Mg/2 Ml Inj) 4 mg IV NOW ONE Stop: 08/27/21 01:34 Last Admin: 08/27/21 01:36 Dose: 4 mg Documented by: NISA Vital Signs Vital signs: Vital Signs - 8 hr 08/26/21 22:11 Pulse Rate 74 Respiratory Rate 18 Blood Pressure 177/102 H Pulse Oximetry 94 Medical Decision Making Lab Data Result diagrams: 08/27/21 00:35 08/27/21 00:35 Labs: Lab Results 08/26/21 08/27/21 08/27/21 Range/Units 22:33 00:35 00:35 WBC 10.1 (4.5-11.0) X10^3/uL RBC 4.86 (4.0-5.2) X10^6/uL Hgb 13.7 (12.0-16.0) g/dL Hct 40.4 (36-46) % MCV 83.0 (80-100) fL MCH 28.2 (26-34) PG MCHC 33.9 (30-36) % RDW 15.7 H (11.6-14.8) % Plt Count 255 (150-400) X10^3/uL Neut % (Auto) 61.3 (50-75) % Lymph % (Auto) 28.1 (25-40) % [place] % (Auto) 7.7 (3-14) % Eos % (Auto) 1.8 L (2-4) % Baso % (Auto) 1.1 (0-2) % Neut # (Auto) 6200 (5329-7132) /uL Lymph # (Auto) 2800 (0357-1643) /uL [place] # (Auto) 800 (0-900) /uL Eos # (Auto) 200 (0-450) /uL Baso # (Auto) 100 (0-100) /uL PT (10.1-12.7) SECONDS INR (0.9-1.3) APTT (26.4-36.2) SECONDS Sodium 141 (137-145) mmol/L Potassium 4.1 (3.4-5.1) mmol/L Chloride 106 (98-107) mmol/L Carbon Dioxide 28 (22-32) mmol/L BUN 21 H (7-17) mg/dL Creatinine 0.67 (0.52-1.04) mg/dL Estimated GFR > 60.0 (>60) mL/min BUN/Creatinine Ratio 31.3 H (6-22) Glucose 114 H (80-110) mg/dL Calcium 8.7 (8.4-10.2) mg/dL Total Bilirubin 0.4 (0.2-1.3) mg/dL AST 26 (14-36) IU/L ALT 18 (<35) IU/L Alkaline Phosphatase 69 (38-126) U/L Total Protein 6.7 (6.3-8.2) g/dL Albumin 3.8 (3.5-5.0) g/dL Globulin 2.9 (1.7-4.1) g/dL Albumin/Globulin Ratio 1.3 (1.0-2.8) Lipase 72 (23-300) U/L Urine Color Yellow Urine Appearance Clear Urine pH 5.5 (4.5-8.0) Ur Specific [place] 1.025 (1.000-1.035) Urine Protein Negative (Negative) Urine Glucose (UA) Negative (Negative) g/dL Urine Ketones Negative (NEGATIVE) Urine Occult Blood 3+ H (Negative) Urine Nitrate Negative (Negative) Urine Bilirubin Negative (NEGATIVE) Urine Urobilinogen 0.2 (0.2) E.U./dL Ur Leukocyte Esterase 1+ H (NEGATIVE) Urine RBC 10-30/hpf H (0-5/HPF) Urine WBC 1-5/hpf (0-5/HPF) Ur Squamous Epith Cells 1-5 /hpf (0-5/HPF) Urine Bacteria Few (2-10) H (None) Ur Culture Indicated? Specimen cultured 08/27/21 Range/Units 02:08 WBC (4.5-11.0) X10^3/uL RBC (4.0-5.2) X10^6/uL Hgb (12.0-16.0) g/dL Hct (36-46) % MCV (80-100) fL MCH (26-34) PG MCHC (30-36) % RDW (11.6-14.8) % Plt Count (150-400) X10^3/uL Neut % (Auto) (50-75) % Lymph % (Auto) (25-40) % [place] % (Auto) (3-14) % Eos % (Auto) (2-4) % Baso % (Auto) (0-2) % Neut # (Auto) (2467-7126) /uL Lymph # (Auto) (1972-6351) /uL [place] # (Auto) (0-900) /uL Eos # (Auto) (0-450) /uL Baso # (Auto) (0-100) /uL PT 12.6 (10.1-12.7) SECONDS INR 1.1 (0.9-1.3) APTT 56 H D (26.4-36.2) SECONDS Sodium (137-145) mmol/L Potassium (3.4-5.1) mmol/L Chloride (98-107) mmol/L Carbon Dioxide (22-32) mmol/L BUN (7-17) mg/dL Creatinine (0.52-1.04) mg/dL Estimated GFR (>60) mL/min BUN/Creatinine Ratio (6-22) Glucose (80-110) mg/dL Calcium (8.4-10.2) mg/dL Total Bilirubin (0.2-1.3) mg/dL AST (14-36) IU/L ALT (<35) IU/L Alkaline Phosphatase (38-126) U/L Total Protein (6.3-8.2) g/dL Albumin (3.5-5.0) g/dL Globulin (1.7-4.1) g/dL Albumin/Globulin Ratio (1.0-2.8) Lipase (23-300) U/L Urine Color Urine Appearance Urine pH (4.5-8.0) Ur Specific [place] (1.000-1.035) Urine Protein (Negative) Urine Glucose (UA) (Negative) g/dL Urine Ketones (NEGATIVE) Urine Occult Blood (Negative) Urine Nitrate (Negative) Urine Bilirubin (NEGATIVE) Urine Urobilinogen (0.2) E.U./dL Ur Leukocyte Esterase (NEGATIVE) Urine RBC (0-5/HPF) Urine WBC (0-5/HPF) Ur Squamous Epith Cells (0-5/HPF) Urine Bacteria (None) Ur Culture Indicated? Imaging Data CT scan - abdomen/pelvis: Radiologist's Impression: FINDINGS:? Image quality:? Excellent.? ? Lung bases:? There is mild scarring and atelectasis in the lung bases.? ? Heart:? No significant findings. ? URINARY: Right Kidney:? A small 0.4 cm nonobstructing stone within the right kidney.? Left kidney also demonstrates a small 0.4 cm nonobstructing stone within the inferior pole.? Right Ureter:? No hydroureter.? ? Left Kidney: ? No stones or hydronephrosis. Left Ureter:? No hydroureter.? ? Bladder:? Normal wall thickness. No stones. ? ? ? ABDOMEN: Liver:? Unremarkable.? ? Gallbladder:? Surgically absent.? ? Biliary ducts:? Unremarkable.? ? Pancreas:? Unremarkable.? ? Spleen:? Unremarkable.? ? Adrenal Glands:? Unremarkable.? ? ? Stomach and Bowel:? Stomach, small bowel loops, and colon are unremarkable.? The appendix is normal in appearance.? There are surgical sutures within the sigmoid colon. Peritoneum:? No abnormal intraperitoneal fluid.? No free air.? ? Ventral Wall: ? No hernia.? Abdominal Nodes:? No enlarged retroperitoneal or mesenteric lymph nodes.? Vessels:? Aorta and inferior vena cava are normal in size.? ? PELVIS: Pelvic Organs:? Unremarkable.? ? Pelvic Nodes: Unremarkable. Miscellaneous:? There is an infraumbilical wide-mouth ventral abdominal hernia containing a few loops small bowel.? No evidence of associated bowel obstruction or strangulation. ? ? ? Bones:? Unremarkable.? ? IMPRESSION:? ? 1. Bilateral nephrolithiasis without evidence of obstructive uropathy. ? 2. Ventral abdominal hernia containing a few loops of small bowel without evidence of bowel obstruction.? ? ? Dictated by: Chip August M.D. on 08/27/2021 at 1:58 ? ? [facility] Narrative Medical decision making narrative: 70-year-old woman presents with left lower quadrant and back pain. Workup was negative including CT scan. On further evaluation I am wondering if she is in the early stages of a shingles outbreak. There is a 3 x 5 cm area of irritation in the L5 dermatomal distribution on the left side that may well turn into vesicular lesion consistent with shingles. With the negative workup, the suspicious rash and the dermatomal distribution for her pain I a.m. going to start her on valacyclovir as well as send her home with some pain medication she is unable to take nonsteroidals on her Pradaxa. Encouraged her to return should she have worsening symptoms, fevers, diarrhea blood in her stool or additional new findings. Questions are answered she is safe for home discharge Discharge Plan Departure Patient Disposition: Home Clinical Impression: Herpes zoster, Abdominal pain Instructions: DI for Shingles Activity Restrictions/Additional Instructions: Thank you for coming in today Your workup was very reassuring. There is no evidence of acute bacterial infection, no surgical abnormalities in your belly and no evidence of passing a kidney stone. You do have small kidney stones up in your kidneys that are not causing any pain but may explain the small amount of blood that you have seen in your urine. With the intensity of your pain as well as the distribution we looked carefully at your skin and I suspect that you are on the very early end of a shingles outbreak. Please keep an eye on that area of skin and see if more discrete rash with blistering develops. In the meantime, I am going to treat you with Diana acyclovir with the presumed diagnosis of shingles. I will also going to give you a brief prescription for Percocet to use for pain. This is narcotic +Tylenol. Narcotic will cause constipation so make sure you are using a stool softener. Prescriptions were sent to [facility]'s If you are getting worse, developed any fevers, increasing abdominal pain or other findings you do need to return for further evaluation Prescriptions: New valacyclovir 1 gram tablet 1,000 mg PO TID Qty: 21 0RF oxycodone-acetaminophen 5-325 mg tablet 1 tab PO Q6H PRN (Reason: pain) Qty: 14 0RF No Action prednisone 20 mg tablet 40 mg PO DAILY Qty: 10 0RF Rx Instructions: take 40mg daily for 5 days then resume usual 5mg per day dosing (DME) nebulizer See Rx Instructions .Route .MEDSUPPLY Qty: 1 0RF Rx Instructions: As directed ipratropium-albuterol 0.5 mg-3 mg(2.5 mg base)/3 mL solution for nebulization 3 ml inhalation Q6H PRN (Reason: shortness of breath or wheezing) Qty: 90 0RF albuterol sulfate 90 mcg/actuation HFA aerosol inhaler 2 puff INHALATION QID PRN (Reason: shortness of breath or wheezing) Qty: 54 3RF doxycycline monohydrate 100 mg tablet 100 mg PO BID Qty: 20 0RF hydrochlorothiazide 25 mg tablet 25 mg PO QDAY Qty: 90 3RF hydroxychloroquine 200 mg tablet 200 mg PO BID 0RF metoprolol succinate [Toprol XL] 25 mg tablet extended release 24 hr 75 mg PO QDAY 0RF prednisone 5 mg tablet 5 mg PO DAILY PRN (Reason: immune issues) 0RF methotrexate sodium 2.5 mg tablet 10 mg PO QWEEK 0RF Pradaxa 150 mg capsule 150 mg PO BID 0RF aspirin [Aspir-Low] 81 mg tablet,delayed release (DR/EC) 81 mg PO DAILY 0RF atorvastatin 40 mg tablet 40 mg PO DAILY Qty: 30 3RF flecainide 50 mg tablet 25 mg PO BID 0RF Label Comments: TK 1 T PO BID Referrals: Anil Sommers MD [Primary Care Provider] -
--- NOTE | 2021-08-27 01:32 | DI.CT.S_ITS ---
PROCEDURE: CT KIDNEY URETER BLADDER (KUB) INDICATIONS: left flank pain, hematuria TECHNIQUE: Axial sections were acquired from the lung bases to the pubic symphysis. Coronal and sagittal reformats were performed. For radiation dose reduction, the following was used: automated exposure control, adjustment of mA and/or kV according to patient size. COMPARISON: [facility], CT, CT ABDOMEN PELVIS W CON, 08/02/2020, 23:02. FINDINGS: Image quality: Excellent. Lung bases: There is mild scarring and atelectasis in the lung bases. Heart: No significant findings. URINARY: Right Kidney: A small 0.4 cm nonobstructing stone within the right kidney. Left kidney also demonstrates a small 0.4 cm nonobstructing stone within the inferior pole. Right Ureter: No hydroureter. Left Kidney: No stones or hydronephrosis. Left Ureter: No hydroureter. Bladder: Normal wall thickness. No stones. ABDOMEN: Liver: Unremarkable. Gallbladder: Surgically absent. Biliary ducts: Unremarkable. Pancreas: Unremarkable. Spleen: Unremarkable. Adrenal Glands: Unremarkable. Stomach and Bowel: Stomach, small bowel loops, and colon are unremarkable. The appendix is normal in appearance. There are surgical sutures within the sigmoid colon. Peritoneum: No abnormal intraperitoneal fluid. No free air. Ventral Wall: No hernia. Abdominal Nodes: No enlarged retroperitoneal or mesenteric lymph nodes. Vessels: Aorta and inferior vena cava are normal in size. PELVIS: Pelvic Organs: Unremarkable. Pelvic Nodes: Unremarkable. Miscellaneous: There is an infraumbilical wide-mouth ventral abdominal hernia containing a few loops small bowel. No evidence of associated bowel obstruction or strangulation. Bones: Unremarkable. IMPRESSION: 1. Bilateral nephrolithiasis without evidence of obstructive uropathy. 2. Ventral abdominal hernia containing a few loops of small bowel without evidence of bowel obstruction. Dictated by: Chip August M.D. on 08/27/2021 at 1:58 Approved by: Chip August M.D. on 08/27/2021 at 2:04
[2021-08-27] MEDS: ONDANSETRON 4 MG/2 ML INJ IV (01:36)
[2021-08-27] MEDS: ACETAMINOPHEN 325 MG TABLET 975 MG PO (01:37)
[2021-08-27 02:22] LABS: INR 1.1 (0.9-1.3); Prothrombin Time 12.6 SECONDS (10.1-12.7)
[2021-08-27 02:24] LABS: PTT Partial Thromboplastin Tim 56 SECONDS (26.4-36.2)
== END 2021-08-27 03:37 | disposition home or self-care (01) ==
PROVIDERS: Emergency Provider Emergency Medicine; PCP Internal Medicine
DX: B02.9 Zoster without complications (principal); R10.32 Left lower quadrant pain
CPT/HCPCS: 36415; 74176; 80053; 81001; 83690; 85025; 85610; 85730; 87077; 87086; 87186; 96374; 99284; J2405

== ENCOUNTER 2021-11-01 09:29 | Emergency (ER) | payer OTHER, MEDICARE, SELFPAY ==
[2021-11-01 10:00] VITALS: BP 146/67; PULSE 68; RESP 20; TEMP 35.9; O2SAT 95; BMI 52.8
[2021-11-01 10:24] LABS: Appearance Urine UA CLOUDY; Bilirubin Urine UA NEGATIVE (NEGATIVE); Color Urine UA RED; Glucose Urine UA NEGATIVE (Negative); Ketones Urine UA NEGATIVE (NEGATIVE); Leukocyte Esterase Urine UA TRACE (NEGATIVE); Nitrite Urine UA NEGATIVE (Negative); Occult Blood Urine UA 3+ (Negative); Protein Urine UA 2+ (Negative); Specific Gravity Urine UA 1.025 (1.000-1.035); Urobilinogen Urine UA 0.2 E.U./dL (0.2)
[2021-11-01 10:28] LABS: Bacteria Urine None Seen; Culture Indicated Urine Specimen Cultured; RBC Urine >100/HPF (0-5/HPF); Squamous Epithelial Cell Urine 1-5 /HPF (0-5/HPF); WBC Urine 5-10/HPF (0-5/HPF)
--- NOTE | 2021-11-01 13:23 | ED_ITS ---
HPI - Female Genitourinary <Edwin Husain PA-C - Last Filed: 11/01/21 20:13> General Chief complaint: Urogenital-Female Stated complaint: Hematuria Time Seen by Provider: 11/01/21 10:05 Source: patient Mode of arrival: Ambulatory History of Present Illness HPI Narrative: Patient is a 70-year-old female who presents to the emergency department for an evaluation of lower abdominal pain and hematuria. Patient explains she has been experiencing lower abdominal pain since 0 100 this morning, stating that she has been experiencing a large amount of blood in her urine since that time. She states that she has experienced urinary tract infections in the past and states that the symptoms are not similar to previous episodes of UTIs. She does report associated left-sided flank pain. She denies fever, chills, chest pain, cough, shortness of breath, nausea, vomiting, diarrhea, constipation dysuria, or any other concerning symptoms. No further concerns were voiced at this time. Related Data Home Medications Medication Instructions Recorded Confirmed flecainide 50 mg tablet 25 mg PO BID 11/14/18 07/06/21 hydroxychloroquine 200 mg tablet 200 mg PO BID 03/26/19 07/06/21 aspirin 81 mg tablet,delayed 81 mg PO DAILY 07/16/19 07/06/21 release (Aspir-Low) dabigatran etexilate 150 mg capsule 150 mg PO BID 07/16/19 07/06/21 metoprolol succinate 25 mg 75 mg PO QDAY 09/10/19 07/06/21 tablet,extended release 24 hr (Toprol XL) methotrexate sodium 2.5 mg tablet 10 mg PO QWEEK 10/03/19 07/06/21 prednisone 5 mg tablet 5 mg PO DAILY PRN immune issues 10/03/19 07/06/21 Previous Rx's Medication Instructions Recorded atorvastatin 40 mg tablet 40 mg PO DAILY #30 tabs 07/16/19 albuterol sulfate 90 mcg/actuation 2 puff inhalation QID PRN 04/13/21 aerosol inhaler shortness of breath or wheezing #54 grams ipratropium 0.5 mg-albuterol 3 mg 3 ml inhalation Q6H PRN shortness 04/13/21 (2.5 mg base)/3 mL nebulization of breath or wheezing #90 mL soln nebulizer #1 ea 04/13/21 prednisone 20 mg tablet 40 mg PO DAILY #10 tabs 04/13/21 doxycycline monohydrate 100 mg 100 mg PO BID #20 tabs 06/25/21 tablet hydrochlorothiazide 25 mg tablet 25 mg PO QDAY #90 tabs 07/13/21 oxycodone-acetaminophen 5 mg-325 1 tab PO Q6H PRN pain #14 tabs 08/27/21 mg tablet valacyclovir 1 gram tablet 1,000 mg PO TID #21 tabs 08/27/21 cefuroxime axetil 500 mg tablet 500 mg PO BID #14 tabs 08/29/21 cephalexin 500 mg capsule 500 mg PO BID 7 days #14 caps 11/01/21 tamsulosin 0.4 mg capsule 0.4 mg PO BEDTIME #30 caps 11/04/21 Allergies Allergy/AdvReac Type Severity Reaction Status Date / Time levofloxacin [From LEVAQUIN] Allergy Intermediate rash and Verified 07/06/21 14:51 tendon pain nickel [NICKEL] Allergy Intermediate RASH Verified 04/13/21 10:20 codeine Allergy Mild Anaphylaxis Verified 04/13/21 10:20 Sulfa (Sulfonamide Allergy Mild HIVES Verified 04/13/21 10:20 Antibiotics) metronidazole [From FLAGYL] AdvReac Mild headache Verified 04/13/21 10:20 morphine AdvReac Mild DROPS Verified 04/13/21 10:20 RESPIRATORY RATE <Ene Deleon DO - Last Filed: 11/07/21 12:52> History of Present Illness HPI Narrative: Patient is a 70-year-old female who presents to the emergency department for an evaluation of lower abdominal pain and hematuria. Patient explains she has been experiencing lower abdominal pain since 0100 this morning, stating that she has been experiencing a large amount of blood in her urine since that time. She states that she has experienced urinary tract infections in the past and states that the symptoms are not similar to previous episodes of UTIs. She does report associated left-sided flank pain. She denies fever, chills, chest pain, cough, shortness of breath, nausea, vomiting, diarrhea, constipation dysuria, or any other concerning symptoms. No further concerns were voiced at this time. Review of Systems <Edwin Husain PA-C - Last Filed: 11/01/21 20:13> Constitutional Constitutional: Denies chills, Denies fatigue, Denies fever(s), Denies frequent falls, Denies lethargy and Denies weakness ENT Ears, Nose, Mouth, and Throat: Denies neck pain Cardiovascular Cardiovascular: Denies chest pain, Denies irregular heart rhythm, Denies lightheadedness, Denies palpitations, Denies dyspnea, Denies dyspnea on exertion and Denies orthopnea Respiratory Respiratory: Denies dyspnea and Denies dyspnea on exertion Gastrointestinal Gastrointestinal: Reports abdominal pain, Denies change in bowel habits, Denies diarrhea, Denies nausea and Denies vomiting Genitourinary Genitourinary: Reports hematuria, Reports flank pain (Left flank), Denies urinary incontinence and Denies urinary urgency Musculoskeletal Musculoskeletal: Denies back pain, Denies muscle weakness, Denies neck pain, Denies numbness and Denies tingling Integumentary/Breasts Skin/Breast: Denies pruritus, Denies erythema, Denies rash and Denies wounds Neurologic Neurologic: Denies frequent falls, Denies numbness, Denies tingling and Denies weakness Endocrine Endocrine: Denies fatigue and Denies palpitations Patient History <Edwin Husain PA-C - Last Filed: 11/01/21 20:13> Medical History Actinic keratosis Anesthesia Diverticulosis of large intestine without perforation or abscess without bleeding Fibroids (~2009) Fibromyalgia (~1999) Frequent UTI (~1979) Heavy menstrual period (~2009) Hypertension, essential (~1999) Irritable bowel syndrome (~2011) Kidney stones (~1979) Major depression in complete remission (06/17/11) Measles (~1960) Mild intermittent asthma without complication (07/10/15) Morbid obesity Mumps (~1957) Paroxysmal atrial fibrillation (~2012) Personal history of stroke with current residual effects (~06/2019) Rheumatoid arthritis (06/17/11) Sjogren's syndrome (~1962) Urinary tract infection Vision disorder Surgical History History of salpingectomy (~01/30/17) History of surgery History of third molar tooth extraction S/P laparoscopic supracervical hysterectomy S/P left colectomy Status post breast reduction (~1999) Status post cholecystectomy Status post dilation and curettage Status post hysterectomy with oophorectomy (01/30/17) Status post panniculectomy (~01/30/17) Status post surgery (07/28/09) Status post surgery (12/26/16) Status post tonsillectomy and adenoidectomy (~1962) Status post tubal ligation Family History Brother Fam hx-ischem heart disease Heart disease Father Fam hx-ischem heart disease Hypertension Crohns disease Grandfather Heart disease Grandmother Mental health problem Mother Family hx of lung cancer Fam hx-ischem heart disease Cancer Hypertension Grandfather Hypertension Stroke Grandmother Hypertension Stroke Son Family history of Hodgkin's disease alcohol intake frequency: other Last Alcoholic Drink: none Substance Use Type: does not use Exam <Edwin Husain PA-C - Last Filed: 11/01/21 20:13> Narrative Exam Narrative: GENERAL: 70 year old patient appears stated age. Well-developed patient, in no acute distress. Large body habitus. HEAD: Atraumatic. Normocephalic. EYES: Pupils equal round and reactive. Extraocular motions intact. No scleral icterus. No injection or drainage. ENT: Nose without bleeding, purulent drainage. Throat without erythema, tonsillar hypertrophy or exudate. Airway patent. NECK: Trachea midline. Non tender CARDIOVASCULAR: Regular rate and rhythm without murmurs, gallops, or rubs. RESPIRATORY: Clear to auscultation. Breath sounds equal bilaterally. No wheezes, rales, or rhonchi. GASTROINTESTINAL: Abdomen soft, nondistended. Tenderness to palpation apprec iated along the left upper and left lower quadrants of the abdomen. No significant guarding or rebound tenderness. No overlying masses, erythema, or ecchymosis noted. EXTREMITIES: No edema or joint tenderness. BACK: Nontender without deformity or crepitance. Mild tenderness to palpation appreciated over the left flank with no overlying ecchymosis or erythema. NEURO: AOx3. SKIN: No rash or erythema of visible areas Initial Vital Signs Initial Vital Signs: Vital Signs Temperature 96.7 F L 11/01/21 10:00 Pulse Rate 68 11/01/21 10:00 Respiratory Rate 20 11/01/21 10:00 Blood Pressure 146/67 H 11/01/21 10:00 Pulse Oximetry 95 11/01/21 10:00 Oxygen Delivery Method 11/01/21 10:00 <Ene Deleon DO - Last Filed: 11/07/21 12:52> Initial Vital Signs Initial Vital Signs: Vital Signs Temperature 96.7 F L 11/01/21 10:00 Pulse Rate 68 11/01/21 10:00 Respiratory Rate 20 11/01/21 10:00 Blood Pressure 146/67 H 11/01/21 10:00 Pulse Oximetry 95 11/01/21 10:00 Oxygen Delivery Method 11/01/21 10:00 Course <Edwin Husain PA-C - Last Filed: 11/01/21 20:13> Course Course Narrative: CBC, CMP, lipase, urinalysis, CT KUB ordered. CT KUB did show signs of right proximal ureteral stone. Orders Ordered: ED Orders 11/01/21 13:15 CBC Auto Diff [Complete Blood Count AUTO DIFF] Stat CMP [Comprehensive Metabolic Panel] Stat Lipase Stat 11/01/21 13:53 CT kidney ureter bladder (KUB) Stat Vital Signs Vital signs: Vital Signs - 8 hr 11/01/21 14:44 11/01/21 14:44 Blood Pressure 145/64 H Pulse Oximetry 96 <Ene Deleon DO - Last Filed: 11/07/21 12:52> Orders Ordered: ED Orders 11/01/21 13:15 CBC Auto Diff [Complete Blood Count AUTO DIFF] Stat CMP [Comprehensive Metabolic Panel] Stat Lipase Stat 11/01/21 13:53 CT kidney ureter bladder (KUB) Stat Vital Signs Vital signs: Vital Signs - 8 hr 11/01/21 14:44 11/01/21 14:44 Blood Pressure 145/64 H Pulse Oximetry 96 MDM - Female Genitourinary <Edwin Husain PA-C - Last Filed: 11/01/21 20:13> Lab Data Result diagrams: 11/01/21 13:15 11/01/21 13:15 Labs: Lab Results 11/01/21 11/01/21 11/01/21 Range/Units 10:07 13:15 13:15 WBC 8.2 (4.5-11.0) X10^3/uL RBC 4.78 (4.0-5.2) X10^6/uL Hgb 13.5 (12.0-16.0) g/dL Hct 40.6 (36-46) % MCV 84.9 (80-100) fL MCH 28.3 (26-34) PG MCHC 33.3 (30-36) % RDW 15.7 H (11.6-14.8) % Plt Count 237 (150-400) X10^3/uL Neut % (Auto) 57.3 (50-75) % Lymph % (Auto) 30.9 (25-40) % [place] % (Auto) 8.5 (3-14) % Eos % (Auto) 2.2 (2-4) % Baso % (Auto) 1.1 (0-2) % Neut # (Auto) 4700 (5369-2596) /uL Lymph # (Auto) 2600 (8791-0549) /uL [place] # (Auto) 700 (0-900) /uL Eos # (Auto) 200 (0-450) /uL Baso # (Auto) 100 (0-100) /uL Sodium 140 (137-145) mmol/L Potassium 4.2 (3.4-5.1) mmol/L Chloride 104 (98-107) mmol/L Carbon Dioxide 32 (22-32) mmol/L BUN 13 (7-17) mg/dL Creatinine 0.69 (0.52-1.04) mg/dL Estimated GFR > 60 (>60) mL/min BUN/Creatinine Ratio 18.8 (6-22) Glucose 96 (80-110) mg/dL Calcium 9.2 (8.4-10.2) mg/dL Total Bilirubin 0.4 (0.2-1.3) mg/dL AST 25 (14-36) IU/L ALT 16 (<35) IU/L Alkaline Phosphatase 76 (38-126) U/L Total Protein 7.2 (6.3-8.2) g/dL Albumin 3.9 (3.5-5.0) g/dL Globulin 3.3 (1.7-4.1) g/dL Albumin/Globulin Ratio 1.2 (1.0-2.8) Lipase 42 (23-300) U/L Urine Color Red Urine Appearance Cloudy Urine pH 5.0 (4.5-8.0) Ur Specific [place] 1.025 (1.000-1.035) Urine Protein 2+ H (Negative) Urine Glucose (UA) Negative (Negative) g/dL Urine Ketones Negative (NEGATIVE) Urine Occult Blood 3+ H (Negative) Urine Nitrate Negative (Negative) Urine Bilirubin Negative (NEGATIVE) Urine Urobilinogen 0.2 (0.2) E.U./dL Ur Leukocyte Esterase Trace H (NEGATIVE) Urine RBC >100/hpf H (0-5/HPF) Urine WBC 5-10/hpf H (0-5/HPF) Ur Squamous Epith Cells 1-5 /hpf (0-5/HPF) Urine Bacteria None seen (None) Ur Culture Indicated? Specimen cultured Imaging Data CT scan - abdomen/pelvis: Radiologist's Impression: PROCEDURE:? CT KIDNEY URETER BLADDER (KUB) ? INDICATIONS:? Hematuria, left flank pain ? TECHNIQUE:? Axial sections were acquired from the lung bases to the pubic symphysis.? Coronal and sagittal reformats were performed.? For radiation dose reduction, the following was used: ?automated exposure control, adjustment of mA and/or kV according to patient size.? ? COMPARISON:? [facility], CT, CT KIDNEY URETER BLADDER (KUB), 08/27/2021, 1:42. ? FINDINGS:? Image quality:? Excellent.? ? Lung bases:? Unremarkable.? ? Heart:? No significant findings. ? URINARY: Right Kidney:? There is very mild prominence of the right renal pelvis when compared to the contralateral side.? Right Ureter:? A probable 3 mm calcification is seen in the right proximal ureter (47/2) versus less likely phlebolith related to the crossing gonadal vein at this level.? ? Left Kidney:? Small 3-4 mm calculi are seen at the inferior pole of the left kidney.? No left-sided hydronephrosis. Left Ureter:? No hydroureter. ? Bladder:? Normal wall thickness. No stones. ? ? ? ABDOMEN: Liver:? Unremarkable.? ? Gallbladder:? Status post cholecystectomy. Biliary ducts:? Unremarkable.? ? Pancreas:? Unremarkable.? ? Spleen:? Unremarkable.? ? Adrenal Glands:? Unremarkable.? ? ? Stomach and Bowel:? Postsurgical changes are seen in the rectosigmoid junction.? No signs of bowel obstruction. Peritoneum:? No abnormal intraperitoneal fluid.? No free air.? ? Ventral Wall: ? A midline ventral hernia is again seen in the mid abdomen with a wide neck, which contains fat and loops of small bowel without signs of bowel obstruction. Abdominal Nodes:? No enlarged retroperitoneal or mesenteric lymph nodes.? Vessels:? Aorta and inferior vena cava are normal in size.? ? PELVIS: Pelvic Organs:? Unremarkable.? ? Pelvic Nodes: Unremarkable. Miscellaneous: No inguinal hernias are seen. ? ? ? Bones:? Degenerative changes are seen in the included spine. ? IMPRESSION:? 1. Right proximal ureteral 3 mm calculus with minimal right hydronephrosis. 2. Nonobstructing 3-4 mm calculi inferior pole of the left kidney.? No left hydronephrosis. 3. Large ventral abdominal hernia again seen containing loops of small bowel without signs of bowel obstruction. ? Dictated by: Corona Welch M.D. on 11/01/2021 at 14:09 ? ? Approved by: Corona Welch M.D. on 11/01/2021 at 14:17 ? MDM Narrative Medical decision making narrative: Differential diagnosis to consider but not limited to urinary tract infection versus pyelonephritis versus nephrolithiasis versus ureterolithiasis versus hydronephrosis. I discussed results of CT imaging with patient informed her cash t she does have a right proximal ureteral stone. I discussed plan to provide the patient with prescription medications for nausea and pain management, however patient declined. She did request an antibiotic as there was a small amount of leukocyte esterase in her urine. I agreed to provide the patient with antibiotics to help with possible infection. I urged the patient follow-up with primary care for further evaluation and management. Patient expresses understanding and agrees to plan. Strict return precautions were discussed with the patient prior to discharge. <Ene Deleon, DO - Last Filed: 11/07/21 12:52> Lab Data Labs: Lab Results 11/01/21 11/01/21 11/01/21 Range/Units 10:07 13:15 13:15 WBC 8.2 (4.5-11.0) X10^3/uL RBC 4.78 (4.0-5.2) X10^6/uL Hgb 13.5 (12.0-16.0) g/dL Hct 40.6 (36-46) % MCV 84.9 (80-100) fL MCH 28.3 (26-34) PG MCHC 33.3 (30-36) % RDW 15.7 H (11.6-14.8) % Plt Count 237 (150-400) X10^3/uL Neut % (Auto) 57.3 (50-75) % Lymph % (Auto) 30.9 (25-40) % [place] % (Auto) 8.5 (3-14) % Eos % (Auto) 2.2 (2-4) % Baso % (Auto) 1.1 (0-2) % Neut # (Auto) 4700 (0668-2613) /uL Lymph # (Auto) 2600 (9431-7603) /uL [place] # (Auto) 700 (0-900) /uL Eos # (Auto) 200 (0-450) /uL Baso # (Auto) 100 (0-100) /uL Sodium 140 (137-145) mmol/L Potassium 4.2 (3.4-5.1) mmol/L Chloride 104 (98-107) mmol/L Carbon Dioxide 32 (22-32) mmol/L BUN 13 (7-17) mg/dL Creatinine 0.69 (0.52-1.04) mg/dL Estimated GFR > 60 (>60) mL/min BUN/Creatinine Ratio 18.8 (6-22) Glucose 96 (80-110) mg/dL Calcium 9.2 (8.4-10.2) mg/dL Total Bilirubin 0.4 (0.2-1.3) mg/dL AST 25 (14-36) IU/L ALT 16 (<35) IU/L Alkaline Phosphatase 76 (38-126) U/L Total Protein 7.2 (6.3-8.2) g/dL Albumin 3.9 (3.5-5.0) g/dL Globulin 3.3 (1.7-4.1) g/dL Albumin/Globulin Ratio 1.2 (1.0-2.8) Lipase 42 (23-300) U/L Urine Color Red Urine Appearance Cloudy Urine pH 5.0 (4.5-8.0) Ur Specific [place] 1.025 (1.000-1.035) Urine Protein 2+ H (Negative) Urine Glucose (UA) Negative (Negative) g/dL Urine Ketones Negative (NEGATIVE) Urine Occult Blood 3+ H (Negative) Urine Nitrate Negative (Negative) Urine Bilirubin Negative (NEGATIVE) Urine Urobilinogen 0.2 (0.2) E.U./dL Ur Leukocyte Esterase Trace H (NEGATIVE) Urine RBC >100/hpf H (0-5/HPF) Urine WBC 5-10/hpf H (0-5/HPF) Ur Squamous Epith Cells 1-5 /hpf (0-5/HPF) Urine Bacteria None seen (None) Ur Culture Indicated? Specimen cultured Discharge Plan Departure Patient Disposition: Home Clinical Impression: Ureterolithiasis, Urinary tract infection Instructions: DI for Kidney Stones Activity Restrictions/Additional Instructions: *You have been diagnosed with right ureterolithiasis, urinary tract infection *What to do: *Please continue to take your regular medications as directed. [X] New medication prescriptions sent to your pharmacy: [facility] [ ] New medication written as a paper prescription [ ] No new medications given You were evaluated in the emergency department today for lower abdominal pain and blood in your urine. CT imaging obtained today did show signs of a right ureteral stone. Additionally, the urine specimen the provided did have a small amount of broken up white blood cells which may indicate a urinary tract infection. I have sent a prescription for antibiotics to your preferred pharmacy. Ensure that you are drinking plenty of fluids throughout the day. Tylenol and ibuprofen can be used as needed for pain. Please follow-up with the primary care provider within the next few days for further evaluation and management. Please do not hesitate to return to the emergency department if you experience fever, persistent vomiting, decreased urine production, or any other concerning symptoms. *Please follow up with your primary care provider in 2-3 days, call for an appointment. Let them know you were seen in the Emergency Department and that we ask that you be seen in follow up. We will electronically transmit a record of today's note if your PCP is in our system *If you do not have a primary care provider please contact the [facility] Resource line at [phone]. They will ask some questions about your medical history and help get you set up with a doctor in the community. *Return to Emergency Department if you should have any new, worsening or concerning symptoms, such as fever greater than 101 F, shaking chills, worsening pain, persistent vomiting or other bothersome symptoms. Prescriptions: New cephalexin 500 mg capsule 500 mg PO BID 7 Days Qty: 14 0RF No Action prednisone 20 mg tablet 40 mg PO DAILY Qty: 10 0RF Rx Instructions: take 40mg daily for 5 days then resume usual 5mg per day dosing (DME) nebulizer See Rx Instructions .Route .MEDSUPPLY Qty: 1 0RF Rx Instructions: As directed ipratropium-albuterol 0.5 mg-3 mg(2.5 mg base)/3 mL solution for nebulization 3 ml inhalation Q6H PRN (Reason: shortness of breath or wheezing) Qty: 90 0RF albuterol sulfate 90 mcg/actuation HFA aerosol inhaler 2 puff INHALATION QID PRN (Reason: shortness of breath or wheezing) Qty: 54 3RF doxycycline monohydrate 100 mg tablet 100 mg PO BID Qty: 20 0RF hydrochlorothiazide 25 mg tablet 25 mg PO QDAY Qty: 90 3RF tamsulosin 0.4 mg capsule 0.4 mg PO BEDTIME Qty: 30 3RF hydroxychloroquine 200 mg tablet 200 mg PO BID metoprolol succinate [Toprol XL] 25 mg tablet extended release 24 hr 75 mg PO QDAY prednisone 5 mg tablet 5 mg PO DAILY PRN (Reason: immune issues) methotrexate sodium 2.5 mg tablet 10 mg PO QWEEK Pradaxa 150 mg capsule 150 mg PO BID aspirin [Aspir-Low] 81 mg tablet,delayed release (DR/EC) 81 mg PO DAILY atorvastatin 40 mg tablet 40 mg PO DAILY Qty: 30 3RF valacyclovir 1 gram tablet 1,000 mg PO TID Qty: 21 0RF oxycodone-acetaminophen 5-325 mg tablet 1 tab PO Q6H PRN (Reason: pain) Qty: 14 0RF cefuroxime axetil 500 mg tablet 500 mg PO BID Qty: 14 0RF flecainide 50 mg tablet 25 mg PO BID Label Comments: TK 1 T PO BID Referrals: Anil Sommers MD [Primary Care Provider] - Visit Report Forms: Patient Portal/API <Ene Deleon DO - Last Filed: 11/07/21 12:52> Cosign ED Attending Cosignature Attestation: I was immediately available in the department for consultation. Documentation has been reviewed.
[2021-11-01 13:31] LABS: Add Manual Diff / Slide Review NO; Basophils Absolute Auto 100 /uL (0-100); Basophils Percent Auto 1.1 % (0-2); Eosinophils Absolute Auto 200 /uL (0-450); Eosinophils Percent Auto 2.2 % (2-4); Hematocrit 40.6 % (36-46); Hemoglobin 13.5 g/dL (12.0-16.0); Lymphocytes Absolute Auto 2600 /uL (1100-4500); Lymphocytes Percent Auto 30.9 % (25-40); Mean Corpuscular HGB Conc 33.3 % (30-36); Mean Corpuscular Hemoglobin 28.3 PG (26-34); Mean Corpuscular Volume 84.9 fL (80-100); Monocytes Absolute Auto 700 /uL (0-900); Monocytes Percent Auto 8.5 % (3-14); Neutrophils Absolute Auto 4700 /uL (1500-7000); Neutrophils Percent Auto 57.3 % (50-75); Platelet Count 237 X10^3/uL (150-400); Red Blood Cell Count 4.78 X10^6/uL (4.0-5.2); Red Cell Distribution Width 15.7 % (11.6-14.8); White Blood Cell Count 8.2 X10^3/uL (4.5-11.0)
[2021-11-01 13:39] LABS: Alanine Aminotransferase 16 IU/L (<35); Albumin 3.9 g/dL (3.5-5.0); Albumin Globulin Ratio 1.2 (1.0-2.8); Alkaline Phosphatase 76 U/L (38-126); Aspartate Aminotransferase 25 IU/L (14-36); BUN Creatinine Ratio 18.8 (6-22); Bilirubin Total 0.4 mg/dL (0.2-1.3); Blood Urea Nitrogen 13 mg/dL (7-17); Calcium 9.2 mg/dL (8.4-10.2); Carbon Dioxide 32 mmol/L (22-32); Chloride 104 mmol/L (98-107); Estimated Glomerular Filt Rate > 60 mL/min (>60); Globulin 3.3 g/dL (1.7-4.1); Glucose 96 mg/dL (80-110); HEMOLYSIS < 15 (0-50); Lipase 42 U/L (23-300); Potassium 4.2 mmol/L (3.4-5.1); Sodium 140 mmol/L (137-145); Total Protein 7.2 g/dL (6.3-8.2)
--- NOTE | 2021-11-01 13:53 | DI.CT.S_ITS ---
PROCEDURE: CT KIDNEY URETER BLADDER (KUB) INDICATIONS: Hematuria, left flank pain TECHNIQUE: Axial sections were acquired from the lung bases to the pubic symphysis. Coronal and sagittal reformats were performed. For radiation dose reduction, the following was used: automated exposure control, adjustment of mA and/or kV according to patient size. COMPARISON: [facility], CT, CT KIDNEY URETER BLADDER (KUB), 08/27/2021, 1:42. FINDINGS: Image quality: Excellent. Lung bases: Unremarkable. Heart: No significant findings. URINARY: Right Kidney: There is very mild prominence of the right renal pelvis when compared to the contralateral side. Right Ureter: A probable 3 mm calcification is seen in the right proximal ureter (47/2) versus less likely phlebolith related to the crossing gonadal vein at this level. Left Kidney: Small 3-4 mm calculi are seen at the inferior pole of the left kidney. No left-sided hydronephrosis. Left Ureter: No hydroureter. Bladder: Normal wall thickness. No stones. ABDOMEN: Liver: Unremarkable. Gallbladder: Status post cholecystectomy. Biliary ducts: Unremarkable. Pancreas: Unremarkable. Spleen: Unremarkable. Adrenal Glands: Unremarkable. Stomach and Bowel: Postsurgical changes are seen in the rectosigmoid junction. No signs of bowel obstruction. Peritoneum: No abnormal intraperitoneal fluid. No free air. Ventral Wall: A midline ventral hernia is again seen in the mid abdomen with a wide neck, which contains fat and loops of small bowel without signs of bowel obstruction. Abdominal Nodes: No enlarged retroperitoneal or mesenteric lymph nodes. Vessels: Aorta and inferior vena cava are normal in size. PELVIS: Pelvic Organs: Unremarkable. Pelvic Nodes: Unremarkable. Miscellaneous: No inguinal hernias are seen. Bones: Degenerative changes are seen in the included spine. IMPRESSION: 1. Right proximal ureteral 3 mm calculus with minimal right hydronephrosis. 2. Nonobstructing 3-4 mm calculi inferior pole of the left kidney. No left hydronephrosis. 3. Large ventral abdominal hernia again seen containing loops of small bowel without signs of bowel obstruction. Dictated by: Corona Welch M.D. on 11/01/2021 at 14:09 Approved by: Corona Welch M.D. on 11/01/2021 at 14:17
[2021-11-01 14:44] VITALS: BP 145/64; O2SAT 96
== END 2021-11-01 14:50 | disposition home or self-care (01) ==
PROVIDERS: Emergency Medicine; Emergency Provider Physician Assistant; PCP Internal Medicine
DX: N20.1 Calculus of ureter (principal); N39.0 Urinary tract infection, site not specified; R10.30 Lower abdominal pain, unspecified
CPT/HCPCS: 36415; 74176; 80053; 81001; 83690; 85025; 87077; 87086; 87186; 99283

== ENCOUNTER → 2021-11-27 09:04 | Outpatient (CLI) | payer OTHER, MEDICARE, SELFPAY ==
--- NOTE | 2021-11-27 09:06 | DI.RAD.S_ITS ---
PROCEDURE: XR KUB INDICATIONS: Kidney stones TECHNIQUE: One view of the abdomen acquired. COMPARISON: None. FINDINGS: Surgical changes and devices: Cholecystectomy clips. Bowel: Bowel gas pattern is normal. Soft tissues: No suspicious abdominal calcifications. Visualized solid organ contours appear normal in size. Bones: No suspicious bony lesions. Both hips have moderately severe degenerative changes consistent with osteoarthritis. The lumbar spine has degenerative changes. IMPRESSION: No acute plain film abnormality. Dictated by: Tutu Mao M.D. on 11/27/2021 at 8:44 Approved by: Tutu Mao M.D. on 11/27/2021 at 8:45
== END ==
PROVIDERS: PCP Internal Medicine; Referring Provider Specialist; Visit Provider Specialist
DX: N20.1 Calculus of ureter (principal)
CPT/HCPCS: 74018

== ENCOUNTER 2022-01-10 13:06 | Observation (INO) | payer OTHER, MEDICARE, SELFPAY ==
[2022-01-10 13:10] VITALS: BP 153/71; PULSE 66; RESP 22; TEMP 36.6; O2SAT 95; BMI 53.1
[2022-01-10 13:36] LABS: Add Manual Diff / Slide Review NO; Basophils Absolute Auto 100 /uL (0-100); Basophils Percent Auto 0.6 % (0-2); Eosinophils Absolute Auto 300 /uL (0-450); Hematocrit 44.2 % (36-46); Hemoglobin 14.9 g/dL (12.0-16.0); Lymphocytes Absolute Auto 2900 /uL (1100-4500); Lymphocytes Percent Auto 26.6 % (25-40); Mean Corpuscular HGB Conc 33.8 % (30-36); Mean Corpuscular Hemoglobin 28.7 PG (26-34); Mean Corpuscular Volume 84.9 fL (80-100); Monocytes Absolute Auto 900 /uL (0-900); Monocytes Percent Auto 8.3 % (3-14); Neutrophils Absolute Auto 6700 /uL (1500-7000); Neutrophils Percent Auto 61.5 % (50-75); Platelet Count 244 X10^3/uL (150-400); Red Cell Distribution Width 15.2 % (11.6-14.8); White Blood Cell Count 10.8 X10^3/uL (4.5-11.0)
--- NOTE | 2022-01-10 13:40 | ED_ITS ---
HPI - Abdominal Pain <AIDEN Pickard - Last Filed: 01/10/22 14:47> General Chief Complaint: Abdominal Pain Stated Complaint: thinks umbilical hernia strangulated Time Seen by Provider: 01/10/22 13:15 Source: patient Mode of arrival: Ambulatory History of Present Illness HPI narrative: 71-year-old female, nonsmoker, since emergency department with right-sided umbilical pain since yesterday. Patient denies any straining but did notice large hard swollen area to the right side her umbilicus. Patient reports that she has had a similar hernia that was incarcerated I year ago that required reduction and overnight observation. Patient is morbidly obese. Patient reports that she becomes nauseous if she eats or drinks anything. Related Data Home Medications Medication Instructions Recorded Confirmed hydroxychloroquine 200 mg tablet 200 mg PO DAILY 03/26/19 01/10/22 aspirin 81 mg tablet,delayed 81 mg PO DAILY 07/16/19 01/10/22 release (Aspir-Low) dabigatran etexilate 150 mg capsule 150 mg PO BID 07/16/19 01/10/22 metoprolol succinate 25 mg 75 mg PO QDAY 09/10/19 01/10/22 tablet,extended release 24 hr (Toprol XL) flecainide 50 mg tablet 50 mg PO BID 12/01/21 01/10/22 rosuvastatin 5 mg tablet 5 mg PO DAILY 12/01/21 01/10/22 Previous Rx's Medication Instructions Recorded albuterol sulfate 90 mcg/actuation 2 puff inhalation QID PRN 04/13/21 aerosol inhaler shortness of breath or wheezing #54 grams ipratropium 0.5 mg-albuterol 3 mg 3 ml inhalation Q6H PRN shortness 04/13/21 (2.5 mg base)/3 mL nebulization of breath or wheezing #90 mL soln hydrochlorothiazide 25 mg tablet 25 mg PO QDAY #90 tabs 07/13/21 Allergies Allergy/AdvReac Type Severity Reaction Status Date / Time levofloxacin [From LEVAQUIN] Allergy Intermediate rash and Verified 12/01/21 14:43 tendon pain nickel [NICKEL] Allergy Intermediate RASH Verified 12/01/21 14:43 codeine Allergy Mild Anaphylaxis Verified 12/01/21 14:43 Sulfa (Sulfonamide Allergy Mild HIVES Verified 12/01/21 14:43 Antibiotics) metronidazole [From FLAGYL] AdvReac Mild headache Verified 12/01/21 14:43 morphine AdvReac Mild DROPS Verified 12/01/21 14:43 RESPIRATORY RATE Review of Systems <AIDEN Pickard - Last Filed: 01/10/22 14:47> Review of Systems Narrative: Narrative: GENERAL: Denies chills, fatigue, fever, sweats. See HPI HEENT: Denies sinus pain, ear pain, sore throat, difficulty swallowing, dizziness. RESPIRATORY: Denies dyspnea, cough, wheezing, sputum. CARDIOVASCULAR: Denies chest pain, palpitations, edema. GASTROINTESTINAL: Denies vomiting, diarrhea, constipation. Endorses right- sided abdominal pain and nausea when eating or drinking. : Denies dysuria, frequency, incontinence, hematuria, urinary retention, flank pain. MSK: Denies weakness, joint pain, or bony pain. SKIN: Denies rash, skin lesions, or pruritis. NEUROLOGIC: Denies weakness, dizziness, headache, numbness, confusion. PSYCHIATRIC: No concerning psychosocial issues. Patient History <AIDEN Pickard - Last Filed: 01/10/22 14:47> Medical History Actinic keratosis Anesthesia Diverticulosis of large intestine without perforation or abscess without bleeding Fibroids (~2009) Fibromyalgia (~1999) Frequent UTI (~1979) Heavy menstrual period (~2009) Hypertension, essential (~1999) Irritable bowel syndrome (~2011) Kidney stones (~1979) Major depression in complete remission (06/17/11) Measles (~1960) Mild intermittent asthma without complication (07/10/15) Morbid obesity Mumps (~1957) Paroxysmal atrial fibrillation (~2012) Personal history of stroke with current residual effects (~06/2019) Rheumatoid arthritis (06/17/11) Right ureteral calculus Sjogren's syndrome (~1962) Urinary tract infection Vision disorder Surgical History History of salpingectomy (~01/30/17) History of surgery History of third molar tooth extraction S/P laparoscopic supracervical hysterectomy S/P left colectomy Status post breast reduction (~1999) Status post cholecystectomy Status post dilation and curettage Status post hysterectomy with oophorectomy (01/30/17) Status post panniculectomy (~01/30/17) Status post surgery (07/28/09) Status post surgery (12/26/16) Status post tonsillectomy and adenoidectomy (~1962) Status post tubal ligation Family History Brother Fam hx-ischem heart disease Heart disease Father Fam hx-ischem heart disease Hypertension Crohns disease Grandfather Heart disease Grandmother Mental health problem Mother Family hx of lung cancer Fam hx-ischem heart disease Cancer Hypertension Grandfather Hypertension Stroke Grandmother Hypertension Stroke Son Family history of Hodgkin's disease Social History marital status: number of children: 4 household members: none lives independently: Yes caregiver/support person: No housing: house pets and animals: Yes education level: other occupational status: employed current occupational exposures/hazards: Yes mirian/hinduism: [employer] leisure activities: exercise Smoking Status: Never smoker Tobacco: How many years used: 0 quit status: quit date established second hand exposure: Yes alcohol intake: never substance use type: does not use Smoking Status: Never smoker alcohol intake frequency: other Substance Use Type: does not use Exam <AIDEN Pickard - Last Filed: 01/10/22 14:47> Narrative Exam Narrative: Exam Narrative: GENERAL: This is a morbidly obese patient, in no acute distress HEAD: Atraumatic. Normocephalic. CARDIOVASCULAR: Regular rate and rhythm without murmurs, peripheral pulses intact, cap refill <2 sec. RESPIRATORY: Breath sounds equal and clear bilaterally. No wheezes, rales, or rhonchi. No cough. No increased respiratory effort. No accessory muscle use. GASTROINTESTINAL: Abdomen soft, tenderness noted to right side of umbilicus, nondistended without guarding or rebound. No suprapubic pain. MSK: Moves all extremities. Normal range of motion, no clubbing or edema. Neurovascularly intact. NEURO: A&O x 3. SKIN: Warm, dry, no rashes or lesions noted. Initial Vital Signs Initial Vital Signs: Vital Signs Temperature 97.9 F 01/10/22 13:10 Pulse Rate 66 01/10/22 13:10 Respiratory Rate 22 01/10/22 13:10 Blood Pressure 153/71 H 01/10/22 13:10 Pulse Oximetry 95 01/10/22 13:10 Oxygen Delivery Method 01/10/22 13:10 Reviewed <Solitario Amaya DO - Last Filed: 01/11/22 13:21> Initial Vital Signs Initial Vital Signs: Vital Signs Temperature 97.9 F 01/10/22 13:10 Pulse Rate 66 01/10/22 13:10 Respiratory Rate 22 01/10/22 13:10 Blood Pressure 153/71 H 01/10/22 13:10 Pulse Oximetry 95 01/10/22 13:10 Oxygen Delivery Method 01/10/22 13:10 Course <AIDEN Pickard - Last Filed: 01/10/22 14:47> Orders Ordered: Acetaminophen (Acetaminophen 325 Mg Tablet) 650 mg PO Q6HR [facility] Last Admin: 01/11/22 06:25 Dose: Not Given Documented By: Admin: 01/11/22 03:09 Dose: Not Given Documented By: Admin: 01/10/22 21:39 Dose: 650 mg Documented By: TIMMY Albuterol/Ipratropium (Albuterol/Ipratropium 3 Ml Ampul) 3 ml INH Q6H PRN PRN Reason: shortness of breath or wheezing Atorvastatin Calcium (Atorvastatin 20 Mg Tablet) 10 mg PO BEDTIME [facility] Dabigatran (Dabigatran 75 Mg Capsule) 150 mg PO BID [facility] Last Admin: 01/11/22 10:30 Dose: 150 mg Documented By: Admin: 01/10/22 22:16 Dose: Not Given Documented By: TIMMY Flecainide Acetate (Flecainide 100 Mg Tablet) 50 mg PO BID [facility] Last Admin: 01/11/22 10:32 Dose: 50 mg Documented By: Admin: 01/10/22 18:09 Dose: 50 mg Documented By: LDV Gabapentin (Gabapentin 300 Mg Capsule) 300 mg PO Q8HR [facility] Last Admin: 01/11/22 06:25 Dose: Not Given Documented By: Admin: 01/10/22 22:17 Dose: Not Given Documented By: TIMMY Hydrochlorothiazide (Hydrochlorothiazide 25 Mg Tablet) 25 mg PO DAILY [facility] Last Admin: 01/11/22 10:30 Dose: 25 mg Documented By: SRAVAN Hydroxychloroquine Sulfate (Hydroxychloroquine 200 Mg Tablet) 200 mg PO BEDTIME [facility] Sodium Chloride (Normal Saline 0.45%) 1,000 mls @ 125 mls/hr IV CONT [facility] Last Admin: 01/10/22 16:56 Dose: 125 mls/hr Documented By: PALAK Metoprolol Succinate (Metoprolol Er 25 Mg Tablet) 75 mg PO DAILY [facility] Last Admin: 01/11/22 10:30 Dose: 75 mg Documented By: SRAVAN Ondansetron HCl (Ondansetron 4 Mg/2 Ml Inj) 4 mg IV Q8HR PRN PRN Reason: Nausea And Vomiting Oxycodone HCl (Oxycodone Ir 10 Mg Tablet) 10 mg PO Q4HR PRN PRN Reason: Pain, Severe (7-10) Discontinued Medications Atorvastatin Calcium (Atorvastatin 20 Mg Tablet) 10 mg PO DAILY [facility] Last Admin: 01/11/22 11:11 Dose: Not Given Documented By: SRAVAN Flecainide Acetate (Flecainide 100 Mg Tablet) 50 mg PO Q12H [facility] Last Admin: 01/10/22 18:42 Dose: Not Given Documented By: LDV Hydroxychloroquine Sulfate (Hydroxychloroquine 200 Mg Tablet) 200 mg PO BID [facility] Last Admin: 01/11/22 11:12 Dose: Not Given Documented By: Admin: 01/10/22 22:16 Dose: Not Given Documented By: TIMMY Scopolamine (Scopolamine 1 Patch) 1 patch TOP NOW ONE Stop: 01/10/22 14:51 Last Admin: 01/10/22 21:39 Dose: 1 patch Documented By: TIMMY Consultations Consultation #1: Dr. Hughes, general surgery. Decision was made to admit patient in a NPO status, no NG tube at this time. Vital Signs Vital signs: Vital Signs - 8 hr 01/10/22 13:10 Temperature 97.9 F Pulse Rate 66 Respiratory Rate 22 Blood Pressure 153/71 H Pulse Oximetry 95 Oxygen Delivery Method Room Air <Solitario Amaya DO - Last Filed: 01/11/22 13:21> Orders Ordered: Acetaminophen (Acetaminophen 325 Mg Tablet) 650 mg PO Q6HR [facility] Last Admin: 01/11/22 06:25 Dose: Not Given Documented By: Admin: 01/11/22 03:09 Dose: Not Given Documented By: Admin: 01/10/22 21:39 Dose: 650 mg Documented By: TIMMY Albuterol/Ipratropium (Albuterol/Ipratropium 3 Ml Ampul) 3 ml INH Q6H PRN PRN Reason: shortness of breath or wheezing Atorvastatin Calcium (Atorvastatin 20 Mg Tablet) 10 mg PO BEDTIME [facility] Dabigatran (Dabigatran 75 Mg Capsule) 150 mg PO BID [facility] Last Admin: 01/11/22 10:30 Dose: 150 mg Documented By: Admin: 01/10/22 22:16 Dose: Not Given Documented By: TIMMY Flecainide Acetate (Flecainide 100 Mg Tablet) 50 mg PO BID [facility] Last Admin: 01/11/22 10:32 Dose: 50 mg Documented By: Admin: 01/10/22 18:09 Dose: 50 mg Documented By: ELIZABETH Gabapentin (Gabapentin 300 Mg Capsule) 300 mg PO Q8HR [facility] Last Admin: 01/11/22 06:25 Dose: Not Given Documented By: Admin: 01/10/22 22:17 Dose: Not Given Documented By: TIMMY Hydrochlorothiazide (Hydrochlorothiazide 25 Mg Tablet) 25 mg PO DAILY [facility] Last Admin: 01/11/22 10:30 Dose: 25 mg Documented By: SRAVAN Hydroxychloroquine Sulfate (Hydroxychloroquine 200 Mg Tablet) 200 mg PO BEDTIME [facility] Sodium Chloride (Normal Saline 0.45%) 1,000 mls @ 125 mls/hr IV CONT [facility] Last Admin: 01/10/22 16:56 Dose: 125 mls/hr Documented By: PALAK Metoprolol Succinate (Metoprolol Er 25 Mg Tablet) 75 mg PO DAILY [facility] Last Admin: 01/11/22 10:30 Dose: 75 mg Documented By: SRAVAN Ondansetron HCl (Ondansetron 4 Mg/2 Ml Inj) 4 mg IV Q8HR PRN PRN Reason: Nausea And Vomiting Oxycodone HCl (Oxycodone Ir 10 Mg Tablet) 10 mg PO Q4HR PRN PRN Reason: Pain, Severe (7-10) Discontinued Medications Atorvastatin Calcium (Atorvastatin 20 Mg Tablet) 10 mg PO DAILY [facility] Last Admin: 01/11/22 11:11 Dose: Not Given Documented By: SRAVAN Flecainide Acetate (Flecainide 100 Mg Tablet) 50 mg PO Q12H [facility] Last Admin: 01/10/22 18:42 Dose: Not Given Documented By: LDV Hydroxychloroquine Sulfate (Hydroxychloroquine 200 Mg Tablet) 200 mg PO BID [facility] Last Admin: 01/11/22 11:12 Dose: Not Given Documented By: Admin: 01/10/22 22:16 Dose: Not Given Documented By: TIMMY Scopolamine (Scopolamine 1 Patch) 1 patch TOP NOW ONE Stop: 01/10/22 14:51 Last Admin: 01/10/22 21:39 Dose: 1 patch Documented By: TIMMY Vital Signs Vital signs: Vital Signs - 8 hr 01/10/22 13:10 Temperature 97.9 F Pulse Rate 66 Respiratory Rate 22 Blood Pressure 153/71 H Pulse Oximetry 95 Oxygen Delivery Method Room Air MDM - Abdominal Pain <AIDEN Pickard - Last Filed: 01/10/22 14:47> Differential Diagnosis Differential diagnosis: Likely abdominal pain Lab Data Result diagrams: 01/10/22 13:27 01/10/22 13:27 Labs: Lab Results 01/10/22 01/10/22 01/10/22 Range/Units 13:27 13:27 13:27 WBC 10.8 (4.5-11.0) X10^3/uL RBC 5.20 (4.0-5.2) X10^6/uL Hgb 14.9 (12.0-16.0) g/dL Hct 44.2 (36-46) % MCV 84.9 (80-100) fL MCH 28.7 (26-34) PG MCHC 33.8 (30-36) % RDW 15.2 H (11.6-14.8) % Plt Count 244 (150-400) X10^3/uL Neut % (Auto) 61.5 (50-75) % Lymph % (Auto) 26.6 (25-40) % Curry % (Auto) 8.3 (3-14) % Eos % (Auto) 3.0 (2-4) % Baso % (Auto) 0.6 (0-2) % Neut # (Auto) 6700 (1270-6295) /uL Lymph # (Auto) 2900 (4784-8293) /uL Curry # (Auto) 900 (0-900) /uL Eos # (Auto) 300 (0-450) /uL Baso # (Auto) 100 (0-100) /uL Sodium 138 (137-145) mmol/L Potassium 4.2 (3.4-5.1) mmol/L Chloride 101 (98-107) mmol/L Carbon Dioxide 29 (22-32) mmol/L BUN 17 (7-17) mg/dL Creatinine 0.68 (0.52-1.04) mg/dL Estimated GFR > 60 (>60) mL/min BUN/Creatinine Ratio 25.0 H (6-22) Glucose 100 (80-110) mg/dL Lactate 1.4 (0.7-2.1) mmol/L Calcium 9.4 (8.4-10.2) mg/dL Total Bilirubin 0.4 (0.2-1.3) mg/dL AST 27 (14-36) IU/L ALT 26 (<35) IU/L Alkaline Phosphatase 84 (38-126) U/L Total Protein 7.3 (6.3-8.2) g/dL Albumin 4.1 (3.5-5.0) g/dL Globulin 3.2 (1.7-4.1) g/dL Albumin/Globulin Ratio 1.3 (1.0-2.8) Lipase 66 (23-300) U/L SARS-CoV-2 (PCR) (Negative) 01/10/22 Range/Units 13:41 WBC (4.5-11.0) X10^3/uL RBC (4.0-5.2) X10^6/uL Hgb (12.0-16.0) g/dL Hct (36-46) % MCV (80-100) fL MCH (26-34) PG MCHC (30-36) % RDW (11.6-14.8) % Plt Count (150-400) X10^3/uL Neut % (Auto) (50-75) % Lymph % (Auto) (25-40) % Curry % (Auto) (3-14) % Eos % (Auto) (2-4) % Baso % (Auto) (0-2) % Neut # (Auto) (7119-2073) /uL Lymph # (Auto) (6773-9362) /uL Curry # (Auto) (0-900) /uL Eos # (Auto) (0-450) /uL Baso # (Auto) (0-100) /uL Sodium (137-145) mmol/L Potassium (3.4-5.1) mmol/L Chloride (98-107) mmol/L Carbon Dioxide (22-32) mmol/L BUN (7-17) mg/dL Creatinine (0.52-1.04) mg/dL Estimated GFR (>60) mL/min BUN/Creatinine Ratio (6-22) Glucose (80-110) mg/dL Lactate (0.7-2.1) mmol/L Calcium (8.4-10.2) mg/dL Total Bilirubin (0.2-1.3) mg/dL AST (14-36) IU/L ALT (<35) IU/L Alkaline Phosphatase (38-126) U/L Total Protein (6.3-8.2) g/dL Albumin (3.5-5.0) g/dL Globulin (1.7-4.1) g/dL Albumin/Globulin Ratio (1.0-2.8) Lipase (23-300) U/L SARS-CoV-2 (PCR) Negative (Negative) Imaging Data CT scan - abdomen/pelvis: Radiologist's Impression: Close Abdomen/Pelvis CT (Signed) Kaleb Wheeler - 01/10/22 Launch?[place] [address] CT Scan Report Signed Patient: Daya Laboy MR#: [id number] : 1950 Acct:[id number] Age/Sex: 71 / F Date of Service: 01/10/22 Loc: ED Accession Number: [id number] ?? Procedure: CT abdomen pelvis w con Ordering Provider: Mahendra Araiza PROCEDURE:? CT ABDOMEN PELVIS W CON ? INDICATIONS:? Abdominal pain/ r/o umbilical hernia ? TECHNIQUE:? After the administration of intravenous contrast, axial sections acquired from the lung bases to the pubic symphysis.? Coronal and sagittal reformats were performed.? For radiation dose reduction, the following was used:? automated exposure control, adjustment of mA and/or kV according to patient size.? ? COMPARISON:? [facility], CT, CT ABDOMEN PELVIS W CON, 08/02/2020, 23:02. ? FINDINGS:? Image quality:? Excellent.? ? Lung bases:? Unremarkable. Heart:? No significant findings. ? ABDOMEN: Liver:? Unremarkable.? ? Gallbladder:? Surgically absent.? ? Biliary ducts:? Unremarkable.? ? Pancreas:? Unremarkable.? ? Spleen:? Unremarkable.? ? Adrenal Glands:? Unremarkable.? ? Kidneys and Ureters:? Unremarkable.? ? ? Stomach and Bowel:? See discussion under ventral Wall.? There is a wide ventral hernia which contains partially obstructed small bowel, most likely secondary to adhesions that occur as the bowel and extends into the hernia.? There are occasional colonic diverticuli.? The colon is unremarkable.? Peritoneum:? No abnormal intraperitoneal fluid.? No free air.? ? Ventral Wall: ? There are 2 separate ventral wall hernias, the more inferior of which only contains fat, and is small.? The more superior of these hernias has an abdominal wall defect which measures approximately 4.8 x 9.8 cm.? Within this hernia is partially obstructed small bowel.? It is unclear whether the obstruction is related to the hernia.? It probably is, secondary in some way to adhesions that occur as it enters into the hernia.? The appearance is similar to the previous study, although the loops are not as distended.? Abdominal Nodes:? No retroperitoneal or mesenteric adenopathy by size criteria.? Vessels:? Aorta and inferior vena cava are normal in size.? ? PELVIS: Pelvic Organs:? Unremarkable.? ? Bladder:? Unremarkable.? ? Pelvic Nodes: No enlarged lymph nodes.? Miscellaneous: No hernias are seen. ? ? ? Bones:? Lumbar degenerative change.? No lytic or blastic bony lesions.? No compression fractures. ? ? IMPRESSION:? ? 1. There is a wide-mouth ventral hernia which contains small bowel.? Despite the fact that the opening of the hernia is large, it appears that this may be the cause of a partial small bowel obstruction. ? 2. There is a smaller ventral hernia just inferior to the large diameter hernia. ? 3. Remote cholecystectomy. ? ? Dictated by: Kaleb Wheeler M.D. on 01/10/2022 at 14:19 ? ? Approved by: Kaleb Wheeler M.D. on 01/10/2022 at 14:26 ? MDM Narrative Medical decision making narrative: 71-year-old female who presents emergency department with abdominal pain. CT reveals a wide-mouth ventral hernia which contains small bowel.? It appears that this may be the cause of a partial small bowel obstruction. Contacted Dr. Hughes, who agreed to admit patient. Informed patient of the results of her CT and plans on admission, for which patient was agreeable. <Solitario Amaya, DO - Last Filed: 01/11/22 13:21> Lab Data Labs: Lab Results 01/10/22 01/10/22 01/10/22 Range/Units 13:27 13:27 13:27 WBC 10.8 (4.5-11.0) X10^3/uL RBC 5.20 (4.0-5.2) X10^6/uL Hgb 14.9 (12.0-16.0) g/dL Hct 44.2 (36-46) % MCV 84.9 (80-100) fL MCH 28.7 (26-34) PG MCHC 33.8 (30-36) % RDW 15.2 H (11.6-14.8) % Plt Count 244 (150-400) X10^3/uL Neut % (Auto) 61.5 (50-75) % Lymph % (Auto) 26.6 (25-40) % Curry % (Auto) 8.3 (3-14) % Eos % (Auto) 3.0 (2-4) % Baso % (Auto) 0.6 (0-2) % Neut # (Auto) 6700 (0516-5666) /uL Lymph # (Auto) 2900 (1021-9188) /uL Curry # (Auto) 900 (0-900) /uL Eos # (Auto) 300 (0-450) /uL Baso # (Auto) 100 (0-100) /uL Sodium 138 (137-145) mmol/L Potassium 4.2 (3.4-5.1) mmol/L Chloride 101 (98-107) mmol/L Carbon Dioxide 29 (22-32) mmol/L BUN 17 (7-17) mg/dL Creatinine 0.68 (0.52-1.04) mg/dL Estimated GFR > 60 (>60) mL/min BUN/Creatinine Ratio 25.0 H (6-22) Glucose 100 (80-110) mg/dL Lactate 1.4 (0.7-2.1) mmol/L Calcium 9.4 (8.4-10.2) mg/dL Total Bilirubin 0.4 (0.2-1.3) mg/dL AST 27 (14-36) IU/L ALT 26 (<35) IU/L Alkaline Phosphatase 84 (38-126) U/L Total Protein 7.3 (6.3-8.2) g/dL Albumin 4.1 (3.5-5.0) g/dL Globulin 3.2 (1.7-4.1) g/dL Albumin/Globulin Ratio 1.3 (1.0-2.8) Lipase 66 (23-300) U/L SARS-CoV-2 (PCR) (Negative) 01/10/22 Range/Units 13:41 WBC (4.5-11.0) X10^3/uL RBC (4.0-5.2) X10^6/uL Hgb (12.0-16.0) g/dL Hct (36-46) % MCV (80-100) fL MCH (26-34) PG MCHC (30-36) % RDW (11.6-14.8) % Plt Count (150-400) X10^3/uL Neut % (Auto) (50-75) % Lymph % (Auto) (25-40) % Curry % (Auto) (3-14) % Eos % (Auto) (2-4) % Baso % (Auto) (0-2) % Neut # (Auto) (0991-2756) /uL Lymph # (Auto) (6166-9787) /uL Curry # (Auto) (0-900) /uL Eos # (Auto) (0-450) /uL Baso # (Auto) (0-100) /uL Sodium (137-145) mmol/L Potassium (3.4-5.1) mmol/L Chloride (98-107) mmol/L Carbon Dioxide (22-32) mmol/L BUN (7-17) mg/dL Creatinine (0.52-1.04) mg/dL Estimated GFR (>60) mL/min BUN/Creatinine Ratio (6-22) Glucose (80-110) mg/dL Lactate (0.7-2.1) mmol/L Calcium (8.4-10.2) mg/dL Total Bilirubin (0.2-1.3) mg/dL AST (14-36) IU/L ALT (<35) IU/L Alkaline Phosphatase (38-126) U/L Total Protein (6.3-8.2) g/dL Albumin (3.5-5.0) g/dL Globulin (1.7-4.1) g/dL Albumin/Globulin Ratio (1.0-2.8) Lipase (23-300) U/L SARS-CoV-2 (PCR) Negative (Negative) Discharge Plan Departure Patient Disposition: Admitted As Inpatient Clinical Impression: Ventral hernia, recurrent, Small bowel obstruction Admit Date/Time: 01/10/22 15:33 Admit Provider: Mariana Hughes <Solitario Amaya DO - Last Filed: 01/11/22 13:21> Cosign ED Attending Cosignature Attestation: I was immediately available in the department for consultation. This documentation has been reviewed and I agree with assessment and plan. Supervised by Solitario Amaya DO
--- NOTE | 2022-01-10 13:42 | DI.CT.S_ITS ---
PROCEDURE: CT ABDOMEN PELVIS W CON INDICATIONS: Abdominal pain/ r/o umbilical hernia TECHNIQUE: After the administration of intravenous contrast, axial sections acquired from the lung bases to the pubic symphysis. Coronal and sagittal reformats were performed. For radiation dose reduction, the following was used: automated exposure control, adjustment of mA and/or kV according to patient size. COMPARISON: [facility], CT, CT ABDOMEN PELVIS W CON, 08/02/2020, 23:02. FINDINGS: Image quality: Excellent. Lung bases: Unremarkable. Heart: No significant findings. ABDOMEN: Liver: Unremarkable. Gallbladder: Surgically absent. Biliary ducts: Unremarkable. Pancreas: Unremarkable. Spleen: Unremarkable. Adrenal Glands: Unremarkable. Kidneys and Ureters: Unremarkable. Stomach and Bowel: See discussion under ventral Wall. There is a wide ventral hernia which contains partially obstructed small bowel, most likely secondary to adhesions that occur as the bowel and extends into the hernia. There are occasional colonic diverticuli. The colon is unremarkable. Peritoneum: No abnormal intraperitoneal fluid. No free air. Ventral Wall: There are 2 separate ventral wall hernias, the more inferior of which only contains fat, and is small. The more superior of these hernias has an abdominal wall defect which measures approximately 4.8 x 9.8 cm. Within this hernia is partially obstructed small bowel. It is unclear whether the obstruction is related to the hernia. It probably is, secondary in some way to adhesions that occur as it enters into the hernia. The appearance is similar to the previous study, although the loops are not as distended. Abdominal Nodes: No retroperitoneal or mesenteric adenopathy by size criteria. Vessels: Aorta and inferior vena cava are normal in size. PELVIS: Pelvic Organs: Unremarkable. Bladder: Unremarkable. Pelvic Nodes: No enlarged lymph nodes. Miscellaneous: No hernias are seen. Bones: Lumbar degenerative change. No lytic or blastic bony lesions. No compression fractures. IMPRESSION: 1. There is a wide-mouth ventral hernia which contains small bowel. Despite the fact that the opening of the hernia is large, it appears that this may be the cause of a partial small bowel obstruction. 2. There is a smaller ventral hernia just inferior to the large diameter hernia. 3. Remote cholecystectomy. Dictated by: Kaleb Wheeler M.D. on 01/10/2022 at 14:19 Approved by: Kaleb Wheeler M.D. on 01/10/2022 at 14:26
[2022-01-10 13:52] LABS: Alanine Aminotransferase 26 IU/L (<35); Albumin 4.1 g/dL (3.5-5.0); Albumin Globulin Ratio 1.3 (1.0-2.8); Alkaline Phosphatase 84 U/L (38-126); Aspartate Aminotransferase 27 IU/L (14-36); Bilirubin Total 0.4 mg/dL (0.2-1.3); Blood Urea Nitrogen 17 mg/dL (7-17); Calcium 9.4 mg/dL (8.4-10.2); Carbon Dioxide 29 mmol/L (22-32); Chloride 101 mmol/L (98-107); Estimated Glomerular Filt Rate > 60 mL/min (>60); Globulin 3.2 g/dL (1.7-4.1); Glucose 100 mg/dL (80-110); HEMOLYSIS < 15 (0-50); Lipase 66 U/L (23-300); Potassium 4.2 mmol/L (3.4-5.1); Sodium 138 mmol/L (137-145); Total Protein 7.3 g/dL (6.3-8.2)
[2022-01-10 14:05] LABS: Lactate (Lactic Acid) 1.4 mmol/L (0.7-2.1)
[2022-01-10 14:18] LABS: COVID19 -Nasal RAPID Negative (Negative)
[2022-01-10 15:36] VITALS: BMI 53.1
[2022-01-10 15:50] VITALS: BP 134/63; PULSE 62; RESP 18; O2SAT 97
[2022-01-10 16:45] VITALS: BP 151/86; PULSE 61; RESP 16; TEMP 36.6; O2SAT 96
[2022-01-10] MEDS: SODIUM CHLORIDE 0.45% 1,000 ML 125 ML IV (16:56)
[2022-01-10] MEDS: FLECAINIDE 100 MG TABLET 50 MG PO (18:09)
[2022-01-10 21:00] VITALS: BP 132/54; PULSE 69; RESP 18; TEMP 36.2; O2SAT 95
[2022-01-10] MEDS: ACETAMINOPHEN 325 MG TABLET 650 MG PO (21:39)
[2022-01-10] MEDS: SCOPOLAMINE 1 PATCH TOP (21:39)
[2022-01-10 23:55] VITALS: BP 116/56; PULSE 67; RESP 18; TEMP 36.6; O2SAT 96
[2022-01-11] VITALS (7 sets, daily range): BP systolic 120–148; BP diastolic 54–87; PULSE 58–67; RESP 16–18; TEMP 36.2–36.7; O2SAT 94–97
--- NOTE | 2022-01-11 | DI.RAD.S_ITS ---
PROCEDURE: XR GASTROGRAFIN CHALLENGE COMPARISON: None. INDICATIONS: sbo FINDINGS: Contrast is visualized throughout the small bowel where there are multiple differential air-fluid levels present. Contrast is visualized within the colon to the level of the rectosigmoid. IMPRESSION: Oral contrast visualized throughout the entire bowel to the level of the rectosigmoid. There are multiple differential air-fluid levels within the small bowel raising the suspicion for ileus or partial obstruction with some contrast transiting through the colon. Dictated by: Christel Romero M.D. on 01/17/2022 at 13:42 Approved by: Christel Romero M.D. on 01/17/2022 at 13:43
[2022-01-11] MEDS: METOPROLOL ER 25 MG TABLET 75 MG PO (10:30)
[2022-01-11] MEDS: hydroCHLOROthiazide 25 MG TABLET PO (10:30)
[2022-01-11] MEDS: DABIGATRAN 75 MG CAPSULE 150 MG PO ×2 (10:30→20:54)
[2022-01-11] MEDS: FLECAINIDE 100 MG TABLET 50 MG PO ×2 (10:32→20:54)
--- NOTE | 2022-01-11 10:43 | CM.DANOTE ---
DCP: Case received, EMR reviewed and met with patient. Introduced self and role. Was able to obtain information regarding patient's baseline activity level at home prior to hospitalization. DCP assessment completed with information currently available. Patient is a 71 year old female who admitted yesterday afternoon to the care of the hospitalist/surgical team. PCP: Dr. Sommers. Payer: confirmed: [facility] [place]. Patient came to the hospital via private vehicle secondary to having right-sided umbilical pain. Patient had also indicated that she had a similar hernia that was incarcerated a year ago. Patient is here on the floor, and currently NPO, for Ventral Hernia, Small Bowel Obstruction. It is unclear at this time if patient will be getting surgery at this time. Met with patient in her room. She is alert and oriented, laying in bed. She resides here in [place] alone, has children in the area. She is employed at [employer]. She is independent at her baseline. P: DCP to continue to follow for any needs. Patient should be able to go home when she is deemed medically stable. Aiyana Uribe RN/Can Runner Discharge Planning/Care Management CM Discharge Assessment Start: 01/11/22 10:42 Freq: Status: Active Protocol: Document 01/11/22 10:42 (Rec: 01/11/22 10:43 [id number]) Discharge Planning Assessment Assigned [employer] Counselor Aiyana Uribe RN/Can Runner Advance Directives? No History Provided By Patient,Medical Record Prior Living Arrangements House Household Members none Type of transporation used prior to Drives own vehicle admit Independent with ADL's Yes Is patient alert and oriented? Yes Caregiver for Another No Barriers to Discharge No Discharge Plan Home Transportation Arrangement Family Referrals Initiated None needed Whiteboard Updated in Patient Room with Yes name and ext. # of Automobile Travel [employer] Counselor Review Status In Process Next Review Type Continued Stay Review
--- NOTE | 2022-01-11 11:12 | P.HP_ITS ---
History of Present Illness History of Present Illness Date Patient Seen: 01/11/22 Time Patient Seen: 08:00 Chief complaint: Dr.Mathis davis umbilical hernia strangulated Narrative: Partial SBO with incarcerated ventral hernia on CT scan. 3-4 days of nausea and fullness when eating, no BM for a couple days and now no flatus until last night after admission. Has had previous episodes. 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) Measles (~1959) Mild intermittent asthma without complication (07/10/15) Morbid obesity Mumps (~1957) Paroxysmal atrial fibrillation (~2012) Personal history of stroke with current residual effects (~06/2019) Rheumatoid arthritis (06/17/11) Right ureteral calculus Sjogren's syndrome (~1962) Urinary tract infection Vision disorder Surgical History History of salpingectomy (~01/30/17) History of surgery History of third molar tooth extraction S/P laparoscopic supracervical hysterectomy S/P left colectomy Status post breast reduction (~1999) Status post cholecystectomy Status post dilation and curettage Status post hysterectomy with oophorectomy (01/30/17) Status post panniculectomy (~01/30/17) Status post surgery (07/28/09) Status post surgery (12/26/16) Status post tonsillectomy and adenoidectomy (~1962) Status post tubal ligation Family & Social History Family History Brother Fam hx-ischem heart disease Heart disease Father Fam hx-ischem heart disease Hypertension Crohns disease Grandfather Heart disease Grandmother Mental health problem Mother Family hx of lung cancer Fam hx-ischem heart disease Cancer Hypertension Grandfather Hypertension Stroke Grandmother Hypertension Stroke Son Family history of Hodgkin's disease Social History: household members none Prior Living Arrangements House lives independently Yes caregiver/support person No Safety & Behavioral: Feels Safe in Current Yes Environment Been Physically Hurt or No Threatened By a Person Tobacco & Substance use: Smoking Status Never smoker alcohol intake never alcohol intake frequency other Substance Use Type does not use Meds Home Medications and Allergies Home Medications Medication Instructions Recorded Confirmed Type hydroxychloroquine 200 mg tablet 200 mg PO DAILY 03/26/19 01/10/22 History aspirin 81 mg tablet,delayed 81 mg PO DAILY 07/16/19 01/10/22 History release (Aspir-Low) dabigatran etexilate 150 mg capsule 150 mg PO BID 07/16/19 01/10/22 History metoprolol succinate 25 mg 75 mg PO QDAY 09/10/19 01/10/22 History tablet,extended release 24 hr (Toprol XL) albuterol sulfate 90 mcg/actuation 2 puff inhalation QID PRN 04/13/21 01/10/22 Rx aerosol inhaler shortness of breath or wheezing #54 grams ipratropium 0.5 mg-albuterol 3 mg 3 ml inhalation Q6H PRN shortness 04/13/21 01/10/22 Rx (2.5 mg base)/3 mL nebulization of breath or wheezing #90 mL soln hydrochlorothiazide 25 mg tablet 25 mg PO QDAY #90 tabs 07/13/21 01/10/22 Rx flecainide 50 mg tablet 50 mg PO BID 12/01/21 01/10/22 History rosuvastatin 5 mg tablet 5 mg PO DAILY 12/01/21 01/10/22 History Allergies Allergy/AdvReac Type Severity Reaction Status Date / Time levofloxacin [From LEVAQUIN] Allergy Intermediate rash and Verified 12/01/21 14:43 tendon pain nickel [NICKEL] Allergy Intermediate RASH Verified 12/01/21 14:43 codeine Allergy Mild Anaphylaxis Verified 12/01/21 14:43 Sulfa (Sulfonamide Allergy Mild HIVES Verified 12/01/21 14:43 Antibiotics) metronidazole [From FLAGYL] AdvReac Mild headache Verified 12/01/21 14:43 morphine AdvReac Mild DROPS Verified 12/01/21 14:43 RESPIRATORY RATE Review of Systems Review of Systems ROS: Yes All systems reviewed with the patient and are negative except as otherwise documented Exam Vital Signs (past 8 hours): - 01/11/22 05:14 01/11/22 08:01 Temperature 97.6 F 97.1 F L Pulse Rate 65 61 Respiratory Rate 16 16 Blood Pressure 120/55 L 136/87 Pulse Oximetry 94 95 Oxygen Flow Rate 0 Oxygen Delivery Method Room Air Oxygen Flow Rate 0 Const General: cooperative and comfortable Nutritional Appearance: obese Orientation: alert, awake and oriented x3 HENMT Head: normocephalic and atraumatic Ears: hearing grossly normal bilaterally Face and sinus: normal facial exam Eyes General: appearance normal, both eyes and all related structures Sclera: sclerae normal Neck Neck: normal visual inspection and trachea midline Chest Chest: normal inspection of the chest Resp Effort & Inspection: normal respiratory effort Cardio Rate: regular rate Rhythm: regular rhythm GI Palpation: soft Other: ventral hernia not reduceable and slightly tender to palpation. No acute abdomen Skin General: no rashes or lesions noted and elasticity normal Neuro General: patient alert, patient awake and patient oriented x3 Extrem General: normal to inspection Psych Appearance: grossly normal Mental Status: mental status grossly normal Judgment: judgment good Objective Labs Result Diagrams: 01/10/22 13:27 01/10/22 13:27 Labs: Laboratory Results - last 24 hr 01/10/22 01/10/22 01/10/22 13:27 13:27 13:27 WBC 10.8 RBC 5.20 Hgb 14.9 Hct 44.2 MCV 84.9 MCH 28.7 MCHC 33.8 RDW 15.2 H Plt Count 244 Neut % (Auto) 61.5 Lymph % (Auto) 26.6 [place] % (Auto) 8.3 Eos % (Auto) 3.0 Baso % (Auto) 0.6 Neut # (Auto) 6700 Lymph # (Auto) 2900 [place] # (Auto) 900 Eos # (Auto) 300 Baso # (Auto) 100 Sodium 138 Potassium 4.2 Chloride 101 Carbon Dioxide 29 BUN 17 Creatinine 0.68 Estimated GFR > 60 BUN/Creatinine Ratio 25.0 H Glucose 100 Lactate 1.4 Calcium 9.4 Total Bilirubin 0.4 AST 27 ALT 26 Alkaline Phosphatase 84 Total Protein 7.3 Albumin 4.1 Globulin 3.2 Albumin/Globulin Ratio 1.3 Lipase 66 SARS-CoV-2 (PCR) 01/10/22 13:41 WBC RBC Hgb Hct MCV MCH MCHC RDW Plt Count Neut % (Auto) Lymph % (Auto) [place] % (Auto) Eos % (Auto) Baso % (Auto) Neut # (Auto) Lymph # (Auto) [place] # (Auto) Eos # (Auto) Baso # (Auto) Sodium Potassium Chloride Carbon Dioxide BUN Creatinine Estimated GFR BUN/Creatinine Ratio Glucose Lactate Calcium Total Bilirubin AST ALT Alkaline Phosphatase Total Protein Albumin Globulin Albumin/Globulin Ratio Lipase SARS-CoV-2 (PCR) Negative Assessment & Plan Assessment & Plan narrative: Known incarcerated ventral hernia with partial SBO likely within the hernia. BMI 53. Plan: Hydration and gastrografin challenge COVID-19 COVID-19 status: Negative Time Spent With Patient Time with patient: 30 to 49 minutes with 50% spent counseling/coordinating care Critical Care time: I spent a total of [] minutes of critical care time on this patient's care today; this time is exclusive of procedural time. Quality VTE Deep Vein Thrombosis/Pulmonary Embolism Present on Admission: No
--- NOTE | 2022-01-11 16:55 | DIET.CONS2 ---
Dietary Inpatient Consultation Note Admission Date: 01/10/2022 15:33 Pt not sensitive to eggs or lactose confirmed c pt by Rd. Diet: 01/11/22 Lunch Clear Liquid Diet Diet Modifications: 01/11/22 Dinner Full Liquid Diet Diet Modifications: Soft,Low Fiber (Low residue) Diet Diet Modifications: Cooked vegetables per MD May Advance Diet as Tolerated: No Safety Tray needed?: No Nutrition Percent Meal Consumed 10% 01/11/22 13:00 Electronically Signed by: Kayleigh Donahue 01/11/22 16:55 Clinical Dietitian [address] [id number]
[2022-01-11] MEDS: ACETAMINOPHEN 325 MG TABLET 650 MG PO (23:01)
[2022-01-12] VITALS: BP 122/61; PULSE 62; RESP 18; TEMP 36.2; O2SAT 95
[2022-01-12 04:00] VITALS: BP 153/60; PULSE 62; RESP 18; TEMP 36.6; O2SAT 94
[2022-01-12 07:40] VITALS: O2SAT 95
[2022-01-12 08:00] VITALS: BP 136/72; PULSE 71; RESP 20; TEMP 36.7; O2SAT 95
[2022-01-12] MEDS: hydroCHLOROthiazide 25 MG TABLET PO (08:29)
[2022-01-12] MEDS: DABIGATRAN 75 MG CAPSULE 150 MG PO (08:29)
[2022-01-12] MEDS: FLECAINIDE 100 MG TABLET 50 MG PO (08:29)
[2022-01-12 08:30] VITALS: BP 136/72
[2022-01-12] MEDS: METOPROLOL ER 25 MG TABLET 75 MG PO (08:30)
--- NOTE | 2022-01-12 09:12 | DIET.CONS ---
Dietary Consultation Note Admission Date: 01/10/2022 15:33 Assessment: 71y F admitted for partial SBO due to abd fascia defect referred to nutrition for nutrition education on diet to avoid future SBO. Pt reports she has large garden, roasted large variety vegetables a few nights ago (skin on- beets, carrots, potatoes, green beans). Noticed pain several hours after eating this meal. Pt reports not being the best with fluid intake, eating fast, and only avoiding tough meats, still eats variety F/V. Pt reports recurrent SBO from same etiology, pt wants to avoid surgery. Pt gastrografin had reached her colon and was causing frequent BMs just prior to RD visit. Ht: 160.02 cm Wt: 137 kg BMI: 53.1 Last BM: 01/11/22 (01/11/22 20:00) MNA: 14 Fred Score: 19 Diet: 01/11/22 Dinner Full Liquid Diet Diet Modifications: Soft,Low Fiber (Low residue) Diet Diet Modifications: Cooked vegetables per MD May Advance Diet as Tolerated: No Safety Tray needed?: No Nutrition Percent Meal Consumed 75% 01/12/22 08:49 Percent Meal Consumed 15% 01/11/22 18:00 Percent Meal Consumed 10% 01/11/22 13:00 Labs: RBC 5.20 X10^6/uL (4.0-5.2) 01/10/22 13:27 Hgb 14.9 g/dL (12.0-16.0) 01/10/22 13:27 Hct 44.2 % (36-46) 01/10/22 13:27 Creatinine 0.68 mg/dL (0.52-1.04) 01/10/22 13:27 Lactate 1.4 mmol/L (0.7-2.1) 01/10/22 13:27 Nutrition Diagnosis: altered GI function r/t structural defect in abd fascia leading to incarcerated small bowel aeb pt with BMI 53.5 increasing complications c herniation, pt with frequent sx SBO and partial SBO, pt reports eating quickly, suboptimal hydration, and regular intake fibrous F/V. Interventions: 1. Educated pt on diet reccs and eating strategies for her particular condition. Focus on eating slowly and chewing food thoroughly so it is puree when swallowed. Increase intake fluids to maintain adequate hydration status. Preferentially eat soft proteins such as yogurt, nut butters, soft cooked meats, bariatric formula protein drinks. When eating F/V, remove skins and strings, cook until can be mashed with tongue to roof of mouth, chew thoroughly and limit volume to 1/2 cup at a time. Pt understands, appreciates, and agrees to plan. Electronically Signed by: Kayleigh Donahue 01/12/22 09:12 Clinical [address] [id number]
--- NOTE | 2022-01-12 09:52 | PC.NURSE ---
Pt has dressed and showered and is ready to drive herself home. IV has been removed. Pt is not taking any narcotics that would prohibit her from driving. Went over d/c instructions with Pt-discussed d/c meds, time of last dose, reviewed stroke education, diet recommendations, and follow up. Encouraged Pt to drink plenty of fluids to prevent constipation or dehydration. Pt denies further questions and was taken out via w/c by TRACTOR MECHANIC APPRENTICE to POV with all belongings.
--- NOTE | 2022-01-12 10:27 | CM.DPC ---
DCP Cont: Pt medically stable for discharge today. Pt discharging in POV. No discharge needs. Em Pineda RN/DCP
== END 2022-01-12 09:54 | disposition home or self-care (01) ==
LOC: ED 14:45 → AC 01-11 08:57
PROVIDERS: Emergency Medicine; Admitting Provider Surgery; Emergency Provider Registered Nurse; PCP Internal Medicine; Referring Provider Registered Nurse; Visit Provider Surgery
DX: R10.33 Periumbilical pain (principal); E66.01 Morbid (severe) obesity due to excess calories; K56.600 Partial intestinal obstruction, unspecified as to cause; K43.6 Other and unspecified ventral hernia with obstruction, without gangrene; Z68.43 Body mass index [BMI] 50.0-59.9, adult; Z20.822 Contact with and (suspected) exposure to COVID-19
CPT/HCPCS: 36415; 74018; 74177; 80053; 83605; 83690; 85025; 87635; 94760; 99218; 99284; C9803; G0378; J7050

== ENCOUNTER 2022-02-21 20:06 | Emergency (ER) | payer OTHER, MEDICARE, SELFPAY ==
[2022-02-21] VITALS (12 sets, daily range): BP systolic 134–155; BP diastolic 62–86; PULSE 61–68; RESP 18; O2SAT 94–98
--- NOTE | 2022-02-21 20:12 | ED_ITS ---
HPI - Fall General Chief Complaint: Trauma Stated Complaint: GLF on thinners/Rt knne and ankle pain Time Seen by Provider: 02/21/22 20:11 History of Present Illness HPI Narrative: Patient is a 71-year-old female history of atrial fibrillation on Pradaxa presenting after a fall. She says that she did not see the urine that her dog left her and she slipped on the ground. Her right knee bent sideways. She did hit her head but did not lose consciousness. Mostly complaining of right knee pain. Unable to ambulate. She was able to crawl to get her phone for assistance. No other injury or pain at this time. Her hip actually does not hurt too bad mostly her knee Related Data Home Medications Medication Instructions Recorded Confirmed hydroxychloroquine 200 mg tablet 200 mg PO DAILY 03/26/19 02/02/22 aspirin 81 mg tablet,delayed 81 mg PO DAILY 07/16/19 02/02/22 release (Aspir-Low) dabigatran etexilate 150 mg capsule 150 mg PO BID 07/16/19 02/02/22 flecainide 50 mg tablet 50 mg PO BID 12/01/21 02/02/22 Previous Rx's Medication Instructions Recorded albuterol sulfate 90 mcg/actuation 2 puff inhalation QID PRN 04/13/21 aerosol inhaler shortness of breath or wheezing #54 grams ipratropium 0.5 mg-albuterol 3 mg 3 ml inhalation Q6H PRN shortness 04/13/21 (2.5 mg base)/3 mL nebulization of breath or wheezing #90 mL soln hydrochlorothiazide 25 mg tablet 25 mg PO QDAY #90 tabs 07/13/21 metoprolol succinate 25 mg 75 mg PO QDAY #270 tabs 01/20/22 tablet,extended release 24 hr (Toprol XL) rosuvastatin 5 mg tablet 5 mg PO DAILY #90 tabs 01/20/22 Allergies Allergy/AdvReac Type Severity Reaction Status Date / Time levofloxacin [From LEVAQUIN] Allergy Intermediate rash and Verified 02/02/22 15:30 tendon pain nickel [NICKEL] Allergy Intermediate RASH Verified 02/02/22 15:30 codeine Allergy Mild Anaphylaxis Verified 02/02/22 15:30 Sulfa (Sulfonamide Allergy Mild HIVES Verified 02/02/22 15:30 Antibiotics) metronidazole [From FLAGYL] AdvReac Mild headache Verified 02/02/22 15:30 morphine AdvReac Mild DROPS Verified 02/02/22 15:30 RESPIRATORY RATE Review of Systems Review of Systems Narrative: GENERAL: Denies chills, fatigue, malaise, fever, sweats, travel HEENT: Denies sinus pain, ear pain, sore throat, difficulty swallowing, neck pain RESPIRATORY: Denies dyspnea, cough, wheezing, hemoptysis, sputum. CARDIOVASCULAR: Denies chest pain, palpitations, orthopnea, edema GASTROINTESTINAL: Denies nausea, vomiting, abdominal pain, diarrhea, constipation, melena. : Denies dysuria, frequency, incontinence, hematuria, urinary retention, flank pain. MUSCULOSKELETAL: See HPI SKIN: No rash, no erythema, no pruritus NEUROLOGIC: + head injury Denies weakness, dizziness, headache, numbness, change in speech, confusion PSYCHIATRIC: No concerning psychosocial issues. 12 point review of systems is negative except for those stated above and HPI 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) Measles (~1960) Mild intermittent asthma without complication (07/10/15) Morbid obesity Mumps (~195) Paroxysmal atrial fibrillation (~2012) Personal history of stroke with current residual effects (~06/2019) Rheumatoid arthritis (06/17/11) Right ureteral calculus Sjogren's syndrome (~1962) Urinary tract infection Vision disorder Surgical History History of salpingectomy (~01/30/17) History of surgery History of third molar tooth extraction S/P laparoscopic supracervical hysterectomy S/P left colectomy Status post breast reduction (~1999) Status post cholecystectomy Status post dilation and curettage Status post hysterectomy with oophorectomy (01/30/17) Status post panniculectomy (~01/30/17) Status post surgery (07/28/09) Status post surgery (12/26/16) Status post tonsillectomy and adenoidectomy (~1963) Status post tubal ligation Family History Brother Fam hx-ischem heart disease Heart disease Father Fam hx-ischem heart disease Hypertension Crohns disease Grandfather Heart disease Grandmother Mental health problem Mother Family hx of lung cancer Fam hx-ischem heart disease Cancer Hypertension Grandfather Hypertension Stroke Grandmother Hypertension Stroke Son Family history of Hodgkin's disease Social History marital status: number of children: 4 household members: none lives independently: Yes caregiver/support person: No housing: house pets and animals: Yes education level: other occupational status: employed current occupational exposures/hazards: Yes mirian/amish: Protestant [employer] / Sabianism leisure activities: exercise Smoking Status: Never smoker Tobacco: How many years used: 0 quit status: quit date established second hand exposure: Yes alcohol intake: never substance use type: does not use Smoking Status: Never smoker alcohol intake frequency: other Substance Use Type: does not use Exam Initial Vital Signs Initial Vital Signs: Vital Signs Pulse Rate 68 02/21/22 20:10 Respiratory Rate 18 02/21/22 20:10 Blood Pressure 147/63 H 02/21/22 20:10 Pulse Oximetry 95 02/21/22 20:10 Oxygen Delivery Method 02/21/22 20:10 GENERAL: Alert well-appearing 71-year-old female HEENT: Head atraumatic,EOMI, pupils reactive, face symmetric, [moist] mucous membranes Neck is supple CARDIOVASCULAR: Regular rate and rhythm without murmurs, rubs or gallops. RESPIRATORY: Breath sounds equal bilaterally, no wheezes rales or rhonchi. ABDOMEN: Soft, nontender. Normoactive bowel sounds all 4 quadrants. No guarding or rebound. EXTREMITIES: Normal range of motion, no clubbing or edema. Neurovascularly intact Right lower extremity able to flex knee some distal pedal pulses intact hip is a non tender. Knee is stable but tender no effusion NEUROLOGICAL: Alert and oriented x4. SKIN: Warm, dry, no laceration, no petechiae, no rashes or lesions. Course Orders Ordered: ED Orders 02/21/22 20:13 CT cervical spine wo con Stat CT head/brain wo con Stat XR hip w pel if done RT 2V Stat XR knee RT 1to2V Stat Discontinued Medications Acetaminophen (Acetaminophen 325 Mg Tablet) 975 mg PO NOW ONE Stop: 02/21/22 20:19 Last Admin: 02/21/22 20:42 Dose: 975 mg Documented By: VERONIKA Hydrocodone Bitart/Acetaminophen (Hydrocodone/Acet 5/325 Prepack) 1 bottle MISC SEEINSTR ONE Stop: 02/21/22 23:03 Last Admin: 02/21/22 23:12 Dose: 1 bottle Documented By: VERONIKA Morphine Sulfate (Morphine 4 Mg/Ml Inj) 4 mg IM NOW ONE Stop: 02/21/22 23:03 Last Admin: 02/21/22 23:26 Dose: Not Given Documented By: VERONIKA Vital Signs Vital signs: Vital Signs - 8 hr 02/21/22 20:10 02/21/22 20:10 02/21/22 20:11 Pulse Rate 68 66 Respiratory Rate 18 Blood Pressure 147/63 H 147/63 H Pulse Oximetry 95 95 Oxygen Delivery Method Room Air 02/21/22 20:11 02/21/22 20:41 02/21/22 20:47 Pulse Rate 65 61 Respiratory Rate Blood Pressure 146/64 H Pulse Oximetry 96 97 Oxygen Delivery Method 02/21/22 20:47 02/21/22 21:00 02/21/22 21:00 Pulse Rate 63 61 Respiratory Rate Blood Pressure 139/65 Pulse Oximetry 97 97 Oxygen Delivery Method 02/21/22 21:30 02/21/22 21:31 02/21/22 21:31 Pulse Rate 61 62 Respiratory Rate Blood Pressure 134/64 Pulse Oximetry 97 98 Oxygen Delivery Method 02/21/22 22:00 02/21/22 22:01 02/21/22 22:01 Pulse Rate 66 66 Respiratory Rate Blood Pressure 139/86 Pulse Oximetry 98 98 Oxygen Delivery Method 02/21/22 22:30 02/21/22 22:30 02/21/22 23:00 Pulse Rate 62 Respiratory Rate Blood Pressure 140/71 137/62 Pulse Oximetry 96 Oxygen Delivery Method Room Air 02/21/22 23:00 02/21/22 23:30 02/21/22 23:30 Pulse Rate 66 67 Respiratory Rate Blood Pressure 155/68 H Pulse Oximetry 94 98 Oxygen Delivery Method MDM - Fall Imaging Data CT scan - head: Radiologist's Impression: ?Daya Laboy MR#: [id number] : 1950 Acct:[id number] Age/Sex: 71 / F Date of Service: 02/21/22 Loc: ED Accession Number: [id number] ?? Procedure: CT head/brain wo con Ordering Provider: Katheryn Ricardo D.O. PROCEDURE:? CT HEAD/BRAIN WO CON ? INDICATIONS:? fall on pradaxa ? TECHNIQUE:? Noncontrast 4.5 mm thick angled axial sections acquired from the foramen magnum to the vertex, with coronal and sagittal reformats.? For radiation dose reduction, the following was used:? automated exposure control, adjustment of mA and/or kV according to patient size.? ? COMPARISON:? None. ? FINDINGS:? Image quality:? Excellent.? ? CSF spaces:? Basal cisterns are patent.? No extra-axial fluid collections.? Ventricles are normal in size and shape.? ? Brain:? No intracranial hemorrhage, mass, or mass effect.? Campos-white matter interface appears preserved.? ? Skull and face:? Calvarium and visualized facial bones are intact, without velásquez spicious lesions.? ? Sinuses:? Visualized sinuses demonstrate mild mucosal thickening within the ethmoid and sphenoid sinuses.? Mastoid air cells are clear. ? IMPRESSION:? ? 1. No acute intracranial abnormality.? ? ? Dictated by: Chip August M.D. on 02/21/2022 at 20:51 ? ? CT - cervical spine: Radiologist's Impression: CT Scan Report Signed Patient: Daya Laboy MR#: [id number] : 1950 Acct:[id number] Age/Sex: 71 / F Date of Service: 02/21/22 Loc: ED Accession Number: [id number] ?? Procedure: CT cervical spine wo con Ordering Provider: Katheryn Ricardo D.O. PROCEDURE:? CT CERVICAL SPINE WO CON ? INDICATIONS:? fall ? TECHNIQUE:? Noncontrast 3 mm thick sections acquired from the skull base to the T4 level.? Sagittal and coronal reformats were then constructed.? For radiation dose reduction, the following was used:? automated exposure control, adjustment of mA and/or kV according to patient size.? ? COMPARISON:? None. ? FINDINGS:? Image quality:? There is motion artifact limiting evaluation.? ? Bones:? No definite fracture or subluxation.? There is multilevel degenerative disc disease and facet joint arthropathy.? Visualized superior ribs are intact.? ? Soft tissues:? Prevertebral soft tissues are normal in thickness.? No parave rtebral hematomas.? No apical pneumothoraces.? ? ? IMPRESSION:? ? 1. No definite acute fracture or subluxation.? Dictated by: Chip August M.D. on 02/21/2022 at 20:59 ? ? Extremity x-ray #1: Radiologist's Impression: [place] [address] XRay Report Signed Patient: Daya Laboy MR#: [id number] : 1950 Acct:[id number] Age/Sex: 71 / F Date of Service: 02/21/22 Loc: ED Accession Number: [id number] ?? Procedure: XR hip w pel if done RT 2V Ordering Provider: Katheryn Ricardo D.O. PROCEDURE:? XR HIP W PEL IF DONE RT 2V ? INDICATIONS:? fall ? TECHNIQUE:? AP pelvis with lateral view of the right hip. ? COMPARISON:? [facility], CR, XR HIP W PEL IF DONE LT 2V, 06/09/2020, 15:31. ? FINDINGS:? ? Bones:? No displaced fracture or dislocation.? Pelvic ring appears intact.? No suspicious bony lesions.? ? Soft tissues:? The visualized bowel gas pattern is normal.? No suspicious soft tissue calcifications.? ? ? IMPRESSION:? ? 1. No displaced fracture or dislocation. ? ? Dictated by: Chip August M.D. on 02/21/2022 at 22:47 ? ? Extremity x-ray #2: Radiologist's Impression: tient: Daya Laboy MR#: [id number] : 1950 Acct:[id number] Age/Sex: 71 / F Date of Service: 02/21/22 Loc: ED Accession Number: [id number] ?? Procedure: XR knee RT 1to2V Ordering Provider: Katheryn Ricardo D.O. PROCEDURE:? XR KNEE RT 1TO2V ? INDICATIONS:? fall ? TECHNIQUE:? 2 views of the knee were acquired.? ? COMPARISON:? [facility], CR, XR HIP W PEL IF DONE RT 2V, 02/21/2022, 20:18. ? FINDINGS:? ? Bones:? No fractures or dislocations.? There are tricompartmental osteoarthritic changes with severe joint space narrowing in the medial compartment associated with subchondral sclerosis and osteophytosis. ? Soft tissues:? There is a moderate to large joint effusion.? No suspicious soft tissue calcifications.? ? ? IMPRESSION:? ? 1. No fracture or dislocation. ? 2. Moderate to large joint effusion. ? 3. Tricompartmental osteoarthritic changes most severe within the medial compartment.? ? ? Dictated by: Chip August M.D. on 02/21/2022 at 22:42 ?? MDM Narrative Medical decision making narrative: Patient had a mechanical fall no loss of consciousness head CT and neck CT are negative. X-ray does show significant arthritis but no fracture. Given knee immobilizer and walker. She was offered morphine but does have previous reaction to decreased respiration with morphine. She will take hydrocodone. Discharge Plan Departure Patient Disposition: Home Clinical Impression: Right knee sprain Instructions: DI for Knee Sprain Activity Restrictions/Additional Instructions: *YOU HAVE BEEN DIAGNOSED WITH right knee sprain *WHAT TO DO: At this time he use knee brace is while sleeping and active. He may weightbear if tolerated. Use walker. Elevate and ice 20-30 minutes at a time. May remove for bathing if you feel it is stable *CONTINUE TO TAKE MEDICATIONS DIRECTED [place] 1 tablet every 6 hours if needed for severe pain, you did receive morphine in the emergency department *FOLLOW UP WITH YOUR PRIMARY CARE PROVIDER IN 2-3 DAYS OR CALL [phone] *RETURN TO ER IF YOU SHOULD HAVE increasing pain swelling OR ANY NEW, WORSENING OR CONCERNING SYMPTOMS Prescriptions: No Action ipratropium-albuterol 0.5 mg-3 mg(2.5 mg base)/3 mL solution for nebulization 3 ml inhalation Q6H PRN (Reason: shortness of breath or wheezing) Qty: 90 0RF albuterol sulfate 90 mcg/actuation HFA aerosol inhaler 2 puff INHALATION QID PRN (Reason: shortness of breath or wheezing) Qty: 54 3RF hydrochlorothiazide 25 mg tablet 25 mg PO QDAY Qty: 90 3RF metoprolol succinate [Toprol XL] 25 mg tablet extended release 24 hr 75 mg PO QDAY Qty: 270 3RF rosuvastatin 5 mg tablet 5 mg PO DAILY Qty: 90 3RF hydroxychloroquine 200 mg tablet 200 mg PO DAILY dabigatran etexilate 150 mg capsule 150 mg PO BID aspirin [Aspir-Low] 81 mg tablet,delayed release (DR/EC) 81 mg PO DAILY flecainide 50 mg tablet 50 mg PO BID Rx Instructions: AM and dinner Referrals: Anil Sommers MD [Primary Care Provider] - Visit Report Forms: Patient Portal/API
--- NOTE | 2022-02-21 20:13 | DI.CT.S_ITS ---
PROCEDURE: CT CERVICAL SPINE WO CON INDICATIONS: fall TECHNIQUE: Noncontrast 3 mm thick sections acquired from the skull base to the T4 level. Sagittal and coronal reformats were then constructed. For radiation dose reduction, the following was used: automated exposure control, adjustment of mA and/or kV according to patient size. COMPARISON: None. FINDINGS: Image quality: There is motion artifact limiting evaluation. Bones: No definite fracture or subluxation. There is multilevel degenerative disc disease and facet joint arthropathy. Visualized superior ribs are intact. Soft tissues: Prevertebral soft tissues are normal in thickness. No paravertebral hematomas. No apical pneumothoraces. IMPRESSION: 1. No definite acute fracture or subluxation. Dictated by: Chip Augsut M.D. on 02/21/2022 at 20:59 Approved by: Chip August M.D. on 02/21/2022 at 21:01
--- NOTE | 2022-02-21 20:13 | DI.RAD.S_ITS ---
PROCEDURE: XR KNEE RT 1TO2V INDICATIONS: fall TECHNIQUE: 2 views of the knee were acquired. COMPARISON: [facility], CR, XR HIP W PEL IF DONE RT 2V, 02/21/2022, 20:18. FINDINGS: Bones: No fractures or dislocations. There are tricompartmental osteoarthritic changes with severe joint space narrowing in the medial compartment associated with subchondral sclerosis and osteophytosis. Soft tissues: There is a moderate to large joint effusion. No suspicious soft tissue calcifications. IMPRESSION: 1. No fracture or dislocation. 2. Moderate to large joint effusion. 3. Tricompartmental osteoarthritic changes most severe within the medial compartment. Dictated by: Chip August M.D. on 02/21/2022 at 22:42 Approved by: Chip August M.D. on 02/21/2022 at 22:44
--- NOTE | 2022-02-21 20:13 | DI.CT.S_ITS ---
PROCEDURE: CT HEAD/BRAIN WO CON INDICATIONS: fall on pradaxa TECHNIQUE: Noncontrast 4.5 mm thick angled axial sections acquired from the foramen magnum to the vertex, with coronal and sagittal reformats. For radiation dose reduction, the following was used: automated exposure control, adjustment of mA and/or kV according to patient size. COMPARISON: None. FINDINGS: Image quality: Excellent. CSF spaces: Basal cisterns are patent. No extra-axial fluid collections. Ventricles are normal in size and shape. Brain: No intracranial hemorrhage, mass, or mass effect. Campos-white matter interface appears preserved. Skull and face: Calvarium and visualized facial bones are intact, without suspicious lesions. Sinuses: Visualized sinuses demonstrate mild mucosal thickening within the ethmoid and sphenoid sinuses. Mastoid air cells are clear. IMPRESSION: 1. No acute intracranial abnormality. Dictated by: Chip August M.D. on 02/21/2022 at 20:51 Approved by: Chip August M.D. on 02/21/2022 at 20:53
--- NOTE | 2022-02-21 20:13 | DI.RAD.S_ITS ---
PROCEDURE: XR HIP W PEL IF DONE RT 2V INDICATIONS: fall TECHNIQUE: AP pelvis with lateral view of the right hip. COMPARISON: [facility], CR, XR HIP W PEL IF DONE LT 2V, 06/09/2020, 15:31. FINDINGS: Bones: No displaced fracture or dislocation. Pelvic ring appears intact. No suspicious bony lesions. Soft tissues: The visualized bowel gas pattern is normal. No suspicious soft tissue calcifications. IMPRESSION: 1. No displaced fracture or dislocation. Dictated by: Chip August M.D. on 02/21/2022 at 22:47 Approved by: Chip August M.D. on 02/21/2022 at 22:48
[2022-02-21] MEDS: ACETAMINOPHEN 325 MG TABLET 975 MG PO (20:42)
[2022-02-21] MEDS: HYDROCODONE/ACET 5/325 PREPACK 1 BOTTLE MISC (23:12)
== END 2022-02-22 00:06 | disposition home or self-care (01) ==
PROVIDERS: Emergency Provider Emergency Medicine; PCP Internal Medicine
DX: S83.91XA Sprain of unspecified site of right knee, initial encounter (principal); W01.0XXA Fall on same level from slipping, tripping and stumbling without subsequent striking against object, initial encounter; Z79.01 Long term (current) use of anticoagulants
CPT/HCPCS: 70450; 72125; 73502; 73560; 99284; J2270

== ENCOUNTER → 2022-04-05 16:38 | Outpatient (CLI) | payer OTHER, MEDICARE, SELFPAY ==
[2022-04-05 18:21] LABS: Bilirubin Urine UA NEGATIVE (NEGATIVE); Color Urine UA YELLOW; Glucose Urine UA NEGATIVE (Negative); Ketones Urine UA NEGATIVE (NEGATIVE); Leukocyte Esterase Urine UA 2+ (NEGATIVE); Nitrite Urine UA POSITIVE (Negative); Occult Blood Urine UA 3+ (Negative); Protein Urine UA TRACE (Negative); Specific Gravity Urine UA >=1.030 (1.000-1.035); Urobilinogen Urine UA 0.2 E.U./dL (0.2)
[2022-04-05 19:11] LABS: Amorphous Sediment Urine 1+; Appearance Urine UA Slightly Cloudy; Bacteria Urine Many (>30); RBC Urine 1-5/HPF (0-5/HPF); Squamous Epithelial Cell Urine 1-5 /HPF (0-5/HPF); WBC Urine 30-100/HPF (0-5/HPF)
[2022-04-05 19:12] LABS: Culture Indicated Urine Specimen Cultured; Mucus Urine 1+ (Negative)
== END ==
PROVIDERS: PCP Internal Medicine; Referring Provider Internal Medicine; Visit Provider Internal Medicine
DX: R31.9 Hematuria, unspecified (principal)
CPT/HCPCS: 81001; 87077; 87086; 87186

== ENCOUNTER → 2022-05-12 10:48 | Outpatient (CLI) | payer OTHER, MEDICARE, SELFPAY ==
[2022-05-12 12:17] LABS: Influenza A - CEPHEID Flu A NEGATIVE (NEGATIVE); Influenza B - CEPHEID Flu B NEGATIVE (NEGATIVE); Respiratory Syncytial Virus Negative (Negative)
[2022-05-12 12:23] LABS: COVID-19 CEPHEID 4-PLEX PCR Negative (Negative)
== END ==
PROVIDERS: PCP Internal Medicine; Visit Provider Physician Assistant Medical
DX: J06.9 Acute upper respiratory infection, unspecified (principal); Z20.822 Contact with and (suspected) exposure to COVID-19
CPT/HCPCS: 0241U

== ENCOUNTER → 2022-09-30 12:15 | Outpatient (CLI) | payer OTHER, MEDICARE, SELFPAY ==
--- NOTE | 2022-09-30 12:17 | DI.MG.S_ITS ---
BILATERAL DIGITAL SCREENING MAMMOGRAM 3D/2D WITH CAD: 09/30/2022 CLINICAL: Routine screening. Comparison is made to exams dated: 07/18/2017 mammogram, 12/11/2014 mammogram, and 11/30/2007 mammogram - [facility]. Both breasts are almost entirely fatty (category a/<25% glandular tissue). Current study was also evaluated with a Computer Aided Detection (CAD) system. No significant masses, calcifications, or other findings are seen in either breast. There has been no significant interval change. IMPRESSION: NEGATIVE There is no mammographic evidence of malignancy. A 1 year screening mammogram is recommended. Based on the Tyrer Cuzick model (a risk assessment model) the patient's lifetime risk is 2.6% and her 10 year risk is 1.5%. According to the ACR, ACS, and NCCN guidelines, an annual breast MRI exam along with mammogram is recommended if the patient's lifetime risk is 20% or greater. This exam was interpreted at Station ID: [id number]. NOTE: For mammograms, a report in lay terms will be sent to the patient. Approximately 15% of breast malignancies will not be visualized mammographically. In the management of a palpable breast mass, a negative mammogram must not discourage biopsy of a clinically suspicious lesion. Electronically Signed By: Roseanne silveira/inessa:09/30/2022 15:19:57 letter sent: Normal Exam ACR BI-RADS Category 1: Negative 3341F
== END ==
PROVIDERS: PCP Internal Medicine; Referring Provider Internal Medicine; Visit Provider Internal Medicine
DX: Z12.31 Encounter for screening mammogram for malignant neoplasm of breast (principal)
CPT/HCPCS: 77063; 77067

== ENCOUNTER → 2022-10-22 14:34 | Outpatient (CLI) | payer OTHER, MEDICARE, SELFPAY ==
--- NOTE | 2022-10-22 14:38 | DI.RAD.S_ITS ---
PROCEDURE: XR CHEST 2V INDICATIONS: Increased work of breathing x 3 days TECHNIQUE: 2 views of the chest were acquired. COMPARISON: [facility], , XR CHEST 2V, 04/13/2021, 11:00. FINDINGS: Surgical changes and devices: None. Lungs and pleura: Lungs are clear. No pleural effusions or pneumothorax. Mediastinum: Mediastinal contours are normal. Heart size is normal. Bones and chest wall: No suspicious bony abnormalities. Soft tissues appear unremarkable. IMPRESSION: No evidence of an acute cardiopulmonary abnormality. Dictated by: Tonio Leslie D.O. on 10/22/2022 at 13:56 Approved by: Tonio Leslie D.O. on 10/22/2022 at 13:57
== END ==
PROVIDERS: PCP Internal Medicine; Referring Provider Physician Assistant; Visit Provider Physician Assistant
DX: R06.00 Dyspnea, unspecified (principal)
CPT/HCPCS: 71046

== ENCOUNTER → 2023-05-02 13:20 | Outpatient (CLI) | payer OTHER, MEDICARE, SELFPAY ==
[2023-05-02 13:48] LABS: Appearance Urine UA TURBID
[2023-05-02 14:00] LABS: Color Urine UA RED
[2023-05-02 14:01] LABS: Bacteria Urine Few (2-10); Culture Indicated Urine Specimen Cultured; RBC Urine >100/HPF (0-5/HPF); Squamous Epithelial Cell Urine 5-10 /HPF (0-5/HPF); WBC Urine 5-10/HPF (0-5/HPF)
== END ==
PROVIDERS: PCP Internal Medicine; Referring Provider Internal Medicine; Visit Provider Internal Medicine
DX: R35.0 Frequency of micturition (principal); R39.15 Urgency of urination
CPT/HCPCS: 81001; 87077; 87086; 87186

== ENCOUNTER → 2023-06-27 07:20 | Outpatient (CLI) | payer OTHER, MEDICARE, SELFPAY ==
[2023-06-27 09:31] LABS: Appearance Urine UA CLEAR; Color Urine UA YELLOW; Specific Gravity Urine UA 1.025 (1.000-1.035)
[2023-06-27 09:32] LABS: Bilirubin Urine UA 1+ (NEGATIVE); Glucose Urine UA NEGATIVE (Negative); Ketones Urine UA TRACE (NEGATIVE); Leukocyte Esterase Urine UA NEGATIVE (NEGATIVE); Nitrite Urine UA POSITIVE (Negative); Occult Blood Urine UA 3+ (Negative); Protein Urine UA 3+ (Negative)
[2023-06-27 09:51] LABS: Bacteria Urine Few (2-10); RBC Urine 30-100/HPF (0-5/HPF); Urine Volume 10mL (spun); WBC Urine 5-10/HPF (0-5/HPF)
[2023-06-27 09:52] LABS: Culture Indicated Urine Specimen Cultured; Squamous Epithelial Cell Urine None Seen (0-5/HPF)
== END ==
PROVIDERS: PCP Internal Medicine; Referring Provider Internal Medicine; Visit Provider Internal Medicine
DX: N39.0 Urinary tract infection, site not specified (principal)
CPT/HCPCS: 81001; 87086; 87186

== ENCOUNTER → 2023-07-24 11:37 | Outpatient (CLI) | payer OTHER, MEDICARE, SELFPAY ==
--- NOTE | 2023-07-24 11:42 | DI.CT.S_ITS ---
PROCEDURE: CT IVP A/P W/WO INDICATIONS: Gross hematuria TECHNIQUE: Optional 5 mm thick noncontrast images acquired from the diaphragm to the symphysis pubis. After the administration of intravenous contrast, 5 mm thick images acquired from the diaphragm to the symphysis pubis after a 10-minute delay. 2 mm thick coronal and sagittal reformats were then performed of the kidneys and ureters. For radiation dose reduction, the following was used: automated exposure control, adjustment of mA and/or kV according to patient size. COMPARISON: None. FINDINGS: Image quality: Diagnostic. Kidneys and Ureters: Both kidneys are normal in size, without hydronephrosis. Nonobstructing calculus at the inferior pole the left kidney measuring 0.6 cm. No perinephric fat stranding. There is normal bilateral renal enhancement. Renal calyces appear normal in morphology when filled with contrast. Opacified portions of both ureters demonstrate normal caliber. The left ureter is suboptimally opacified. Bladder: Bladder wall thickness is normal. No calcified bladder stones. OTHER: Lower chest: Mild dependent atelectasis. Liver: No solid mass. Hepatic steatosis. Gallbladder: Absent. Biliary ducts: No biliary dilation. Pancreas: No ductal dilation. Spleen: Size is within normal limits. Adrenal Glands: No adrenal nodules. Stomach and Bowel: Normal colonic caliber, without significant wall thickening. Sigmoid anastomosis. Diverticulosis. No diverticulitis. Normal appendix. Peritoneum: No abnormal intraperitoneal fluid. No free air. Ventral Wall: Ventral abdominal wall hernia containing bowel. Abdominal Nodes: No retroperitoneal or mesenteric adenopathy by size criteria. Vessels: Aorta and inferior vena cava are normal in size. PELVIS: Pelvic Organs: Anteverted uterus. Question partial hysterectomy. Pelvic Nodes: No enlarged lymph nodes. Miscellaneous: No inguinal hernias are seen. Bones: No aggressive osseous abnormality. Multilevel DDD. IMPRESSION: 1. No hydronephrosis. Small nonobstructing left kidney stone. 2. No solid renal mass. 3. No hydroureter. No right ureteral filling defect. Suboptimal opacification of the left ureter. 4. Sigmoid colon anastomosis. Ventral abdominal wall hernia containing small bowel. No bowel obstruction. Hepatic steatosis. Dictated by: Damien Orozco M.D. on 07/24/2023 at 17:19 Approved by: Dmaien Orozco M.D. on 07/24/2023 at 17:26
[2023-07-24 12:04] LABS: Estimated Glomerular Filt Rate > 60 mL/min (>60)
== END ==
PROVIDERS: Radiology Diagnostic Radiology; PCP Internal Medicine; Referring Provider Urology; Visit Provider Urology
DX: N20.0 Calculus of kidney (principal); R31.0 Gross hematuria; K43.9 Ventral hernia without obstruction or gangrene; K76.0 Fatty (change of) liver, not elsewhere classified; Z98.0 Intestinal bypass and anastomosis status
CPT/HCPCS: 36415; 74178; 82565; Q9967

== ENCOUNTER → 2024-03-05 07:07 | Outpatient (CLI) | payer OTHER, MEDICARE, SELFPAY ==
[2024-03-05 08:08] LABS: Add Manual Diff / Slide Review NO; Basophils Absolute Auto 0 /uL (0-100); Basophils Percent Auto 0.6 % (0-2); Eosinophils Absolute Auto 200 /uL (0-450); Eosinophils Percent Auto 3.4 % (2-4); Hematocrit 36.2 % (36-46); Hemoglobin 11.4 g/dL (12.0-16.0); Lymphocytes Absolute Auto 2200 /uL (1100-4500); Lymphocytes Percent Auto 35.3 % (25-40); Mean Corpuscular HGB Conc 31.4 % (30-36); Mean Corpuscular Hemoglobin 23.5 PG (26-34); Mean Corpuscular Volume 74.7 fL (80-100); Monocytes Absolute Auto 500 /uL (0-900); Neutrophils Absolute Auto 3300 /uL (1500-7000); Neutrophils Percent Auto 52.7 % (50-75); Platelet Count 367 X10^3/uL (150-400); Red Blood Cell Count 4.84 X10^6/uL (4.0-5.2); Red Cell Distribution Width 19.3 % (11.6-14.8); White Blood Cell Count 6.3 X10^3/uL (4.5-11.0)
[2024-03-05 08:13] LABS: Appearance Urine UA SL CLOUDY; Bilirubin Urine UA NEGATIVE (NEGATIVE); Color Urine UA YELLOW; Glucose Urine UA NEGATIVE (Negative); Ketones Urine UA NEGATIVE (NEGATIVE); Leukocyte Esterase Urine UA 1+ (NEGATIVE); Nitrite Urine UA NEGATIVE (Negative); Occult Blood Urine UA 3+ (Negative); Protein Urine UA 2+ (Negative); Urobilinogen Urine UA 0.2 E.U./dL (0.2)
[2024-03-05 08:15] LABS: Urine Volume 10mL (spun); pH Urine UA 5.5 (4.5-8.0)
[2024-03-05 08:17] LABS: Bacteria Urine None Seen; RBC Urine >100/HPF (0-5/HPF); Squamous Epithelial Cell Urine 5-10 /HPF (0-5/HPF); WBC Urine 30-100/HPF (0-5/HPF)
[2024-03-05 08:18] LABS: Culture Indicated Urine Specimen Cultured
[2024-03-05 08:22] LABS: Alanine Aminotransferase 21 IU/L (<35); Albumin 3.7 g/dL (3.5-5.0); Albumin Globulin Ratio 1.5 (1.0-2.8); Alkaline Phosphatase 92 U/L (38-126); Aspartate Aminotransferase 24 IU/L (14-36); BUN Creatinine Ratio 24.6 (6-22); Bilirubin Total 0.4 mg/dL (0.2-1.3); Blood Urea Nitrogen 17 mg/dL (7-17); Calcium 9.3 mg/dL (8.4-10.2); Carbon Dioxide 28 mmol/L (22-32); Chloride 104 mmol/L (98-107); Cholesterol 111 mg/dL (140-199); Estimated Glomerular Filt Rate > 60 mL/min (>60); Globulin 2.5 g/dL (1.7-4.1); Glucose 123 mg/dL (80-110); HDL Cholesterol 52 mg/dL (40-60); HEMOLYSIS < 15 (0-50); LDL Cholesterol Calculated 39 mg/dL (<100); Potassium 3.8 mmol/L (3.4-5.1); Sodium 138 mmol/L (137-145); Total Protein 6.2 g/dL (6.3-8.2); Triglycerides 102 mg/dL (35-150); Uric Acid 6.8 mg/dL (2.5-6.2)
== END ==
PROVIDERS: PCP Internal Medicine; Referring Provider Internal Medicine; Visit Provider Internal Medicine
DX: I10 Essential (primary) hypertension (principal); M06.9 Rheumatoid arthritis, unspecified; M1A.9XX0 Chronic gout, unspecified, without tophus (tophi); D64.9 Anemia, unspecified; N39.0 Urinary tract infection, site not specified; R31.9 Hematuria, unspecified; R39.89 Other symptoms and signs involving the genitourinary system
CPT/HCPCS: 36415; 80053; 80061; 81001; 84550; 85025; 87077; 87086

== ENCOUNTER → 2024-06-28 12:04 | Outpatient (CLI) | payer OTHER, MEDICARE, SELFPAY ==
[2024-06-28 12:30] LABS: Add Manual Diff / Slide Review NO; Basophils Absolute Auto 0 /uL (0-100); Basophils Percent Auto 0.4 % (0-2); Eosinophils Absolute Auto 200 /uL (0-450); Eosinophils Percent Auto 1.5 % (2-4); Hematocrit 34.3 % (36-46); Hemoglobin 10.6 g/dL (12.0-16.0); Lymphocytes Absolute Auto 3500 /uL (1100-4500); Lymphocytes Percent Auto 30.9 % (25-40); Mean Corpuscular HGB Conc 30.8 % (30-36); Mean Corpuscular Hemoglobin 21.1 PG (26-34); Mean Corpuscular Volume 68.4 fL (80-100); Monocytes Absolute Auto 1000 /uL (0-900); Monocytes Percent Auto 8.5 % (3-14); Neutrophils Absolute Auto 6600 /uL (1500-7000); Neutrophils Percent Auto 58.7 % (50-75); Platelet Count 501 X10^3/uL (150-400); Red Blood Cell Count 5.01 X10^6/uL (4.0-5.2); Red Cell Distribution Width 19.2 % (11.6-14.8); White Blood Cell Count 11.3 X10^3/uL (4.5-11.0)
[2024-06-28 12:46] LABS: Alanine Aminotransferase 26 IU/L (<35); Albumin Globulin Ratio 1.3 (1.0-2.8); Alkaline Phosphatase 98 U/L (38-126); Aspartate Aminotransferase 31 IU/L (14-36); BUN Creatinine Ratio 20.3 (6-22); Bilirubin Total 0.3 mg/dL (0.2-1.3); Blood Urea Nitrogen 15 mg/dL (7-17); Calcium 9.3 mg/dL (8.4-10.2); Carbon Dioxide 24 mmol/L (22-32); Chloride 105 mmol/L (98-107); Estimated Glomerular Filt Rate > 60 mL/min (>60); Globulin 3.2 g/dL (1.7-4.1); Glucose 108 mg/dL (80-110); HEMOLYSIS < 15 (0-50); Magnesium 1.9 mg/dL (1.6-2.3); Potassium 3.9 mmol/L (3.4-5.1); Sodium 138 mmol/L (137-145); Total Protein 7.2 g/dL (6.3-8.2)
[2024-06-28 14:07] LABS: Anisocytosis 2+; Hypochromasia 1+; Microcytosis 2+; Poikilocytosis 1+
[2024-06-28 14:08] LABS: Platelet Estimate Incr; RBC Morphology See
== END ==
PROVIDERS: PCP Internal Medicine; Referring Provider Internal Medicine; Visit Provider Internal Medicine
DX: I48.0 Paroxysmal atrial fibrillation (principal); I10 Essential (primary) hypertension; D64.9 Anemia, unspecified
CPT/HCPCS: 36415; 80053; 83735; 85025

== ENCOUNTER 2024-08-14 13:30 | Emergency (ER) | payer OTHER, MEDICARE, SELFPAY ==
[2024-08-14] VITALS (8 sets, daily range): BP systolic 140–157; BP diastolic 61–80; PULSE 63–72; RESP 15–20; TEMP 36.8; O2SAT 96–99; BMI 54.0
--- NOTE | 2024-08-14 13:47 | EKG_ITS ---
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
--- NOTE | 2024-08-14 13:47 | DI.RAD.S_ITS ---
PROCEDURE: XR CHEST 1V INDICATIONS: Shortness of breath TECHNIQUE: One view of the chest was acquired. COMPARISON: [facility], [place], XR CHEST 2V, 10/22/2022, 14:34. [facility], CR, XR CHEST 2V, 04/13/2021, 11:00. FINDINGS: Surgical changes and devices: None. Lungs and pleura: Lungs are clear. No pleural effusions or pneumothorax. Mediastinum: Mediastinal contours appear normal. Heart size is normal. Bones and chest wall: No suspicious bony lesions. Overlying soft tissues appear unremarkable. IMPRESSION: No acute cardiopulmonary abnormality is seen. Dictated by: Jerzy Cabral M.D. on 08/14/2024 at 14:40 Approved by: Jerzy Cabral M.D. on 08/14/2024 at 14:40
[2024-08-14 14:11] LABS: INR 1.1 (0.9-1.3); Prothrombin Time 12.1 SECONDS (9.4-12.5)
[2024-08-14] MEDS: ASPIRIN 81 MG CHEW TAB 324 MG PO (14:11)
[2024-08-14 14:12] LABS: Add Manual Diff / Slide Review YES; Hematocrit 34.4 % (36-46); Hemoglobin 10.7 g/dL (12.0-16.0); Mean Corpuscular Hemoglobin 22.1 PG (26-34); Mean Corpuscular Volume 71.2 fL (80-100); Platelet Count 340 X10^3/uL (150-400); Red Blood Cell Count 4.83 X10^6/uL (4.0-5.2); Red Cell Distribution Width 25.3 % (11.6-14.8); White Blood Cell Count 9.8 X10^3/uL (4.5-11.0)
[2024-08-14 14:15] LABS: Alanine Aminotransferase 20 IU/L (<35); Albumin Globulin Ratio 1.2 (1.0-2.8); Alkaline Phosphatase 96 U/L (38-126); Aspartate Aminotransferase 26 IU/L (14-36); BUN Creatinine Ratio 29.2 (6-22); Bilirubin Total 0.4 mg/dL (0.2-1.3); Blood Urea Nitrogen 19 mg/dL (7-17); Calcium 9.2 mg/dL (8.4-10.2); Carbon Dioxide 26 mmol/L (22-32); Chloride 104 mmol/L (98-107); Estimated Glomerular Filt Rate > 60 mL/min (>60); Globulin 3.3 g/dL (1.7-4.1); Glucose 108 mg/dL (80-110); HEMOLYSIS < 15 (0-50); Lactate (Lactic Acid) 1.7 mmol/L (0.7-2.1); Sodium 138 mmol/L (137-145); Total Protein 7.3 g/dL (6.3-8.2)
--- NOTE | 2024-08-14 14:25 | ED.GENADULT ---
HPI - General Adult General Chief complaint: Shortness of Breath/Dyspnea Stated complaint: SOB Time Seen by Provider: 08/14/24 14:23 Source: patient Mode of arrival: Family Vehicle History of Present Illness HPI narrative: 73-year-old woman with a history atrial flutter/fibrillation on flecainide and Pradaxa, fibromyalgia, morbid obesity, COVID infection in May with continued exertional dyspnea who comes in today complaining of worsening exertional dyspnea she had to park so far from her follow up outpatient medical appointment. By the time she got to the office lobby, she was significantly short of breath and begin complaining of some tightness through her chest and pain radiating down her left arm. She came to the ER for further evaluation. She is still complaining of mild tightness with the arm pain has resolved. She notes she has been having these issues since May after a COVID infection. She was admitted to [facility] for similar complaints on July 16. She was scheduled for an outpatient electrocardioversion, she a converted to sinus rhythm spontaneously but had pain down her chest at that time. 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 Workup with that recent hospitalization showed no EKG changes, negative troponins x3, respiratory panel was negative, chest x-ray showed cardiomegaly and mild vascular congestion, unable to do a stress test due to adverse effect from pharmacologic agent in the past. She had an echocardiogram that showed an ejection fraction 55-60% without any focal wall abnormalities. She does note that she has had increased exertional dyspnea, mild orthopnea and increased lower extremity edema of the past couple of weeks, she currently is on hydrochlorothiazide for diuresis. She has not had significant palpitations, believes she is stayed in sinus rhythm since mid June, no headaches, nausea, vomiting or diarrhea. Related Data Home Medications Medication Instructions Recorded Confirmed aspirin 81 mg tablet,delayed 81 mg PO DAILY 07/16/19 07/19/24 release (Aspir-Low) allopurinol 300 mg tablet 300 mg PO DAILY 05/19/22 07/19/24 colchicine 0.6 mg tablet 0.6 mg PO DAILY 05/19/22 07/19/24 flecainide 50 mg tablet 100 mg PO BID 06/28/24 07/19/24 cranberry extract 500 [id number] tab PO 07/18/24 07/19/24 50 mg chewable tablet estradiol 0.01% (0.1 mg/gram) 1 g vaginal QWEEK 07/18/24 07/19/24 vaginal cream hydroxychloroquine 200 mg tablet 100 mg PO DAILY 07/18/24 07/19/24 multivitamin 1 tab PO DAILY 07/18/24 07/19/24 Previous Rx's Medication Instructions Recorded rosuvastatin 5 mg tablet 5 mg PO DAILY #90 tabs 01/20/22 dabigatran etexilate 150 mg capsule 150 mg PO BID #180 caps 07/25/22 Disabled Parking #1 ea 08/24/23 albuterol sulfate 90 mcg/actuation 2 puff inhalation Q4-6H PRN 08/24/23 aerosol inhaler shortness of breath or wheezing #6.7 grams ipratropium 0.5 mg-albuterol 3 mg 3 ml inhalation Q6H PRN shortness 08/24/23 (2.5 mg base)/3 mL nebulization of breath or wheezing #90 mL soln hydrochlorothiazide 25 mg tablet 25 mg PO QDAY #90 tabs 10/11/23 metoprolol succinate 25 mg 50 mg (2 x 25 mg) PO QDAY #270 tabs 07/18/24 tablet,extended release 24 hr (Toprol XL) ferrous sulfate 325 mg (65 mg 325 mg PO DAILY #60 tabs 07/19/24 iron) tablet furosemide 20 mg tablet 20 mg PO DAILY #30 tabs 08/14/24 potassium chloride 8 mEq 8 meq PO DAILY #30 tabs 08/14/24 tablet,extended release Allergies Allergy/AdvReac Type Severity Reaction Status Date / Time levofloxacin [From LEVAQUIN] Allergy Intermediate rash and Verified 08/14/24 13:47 tendon pain nickel [NICKEL] Allergy Intermediate RASH Verified 08/14/24 13:47 codeine Allergy Mild Anaphylaxis Verified 08/14/24 13:47 Sulfa (Sulfonamide Allergy Mild HIVES Verified 08/14/24 13:47 Antibiotics) metronidazole [From FLAGYL] AdvReac Mild headache Verified 08/14/24 13:47 morphine AdvReac Mild DROPS Verified 08/14/24 13:47 RESPIRATORY RATE Review of Systems Review of Systems Narrative: Pertinent positive and negative findings as per HPI Patient History Medical History Anemia Vaginal atrophy Gout, chronic History of bladder stone Chronic anticoagulation Personal history of stroke with current residual effects (~06/2019) Anesthesia Vision disorder Sjogren's syndrome (~1962) Fibromyalgia (~1999) Actinic keratosis Mumps (~1957) Measles (~1959) Heavy menstrual period (~2009) Fibroids (~2009) Kidney stones (~1979) Frequent UTI (~1979) Irritable bowel syndrome (~2011) Mild intermittent asthma without complication (07/10/15) Diverticulosis of large intestine without perforation or abscess without bleeding Rheumatoid arthritis (06/17/11) Major depression in complete remission (06/17/11) Hypertension, essential (~1999) Paroxysmal atrial fibrillation (~2012) Surgical History History of surgery Status post panniculectomy (~01/30/17) History of salpingectomy (~01/30/17) Status post hysterectomy with oophorectomy (01/30/17) Status post surgery (12/26/16) Status post dilation and curettage Status post tubal ligation Status post tonsillectomy and adenoidectomy (~1962) History of third molar tooth extraction Status post cholecystectomy Status post breast reduction (~1999) Status post surgery (07/28/09) S/P left colectomy S/P laparoscopic supracervical hysterectomy Family History Brother Fam hx-ischem heart disease Heart disease Father Fam hx-ischem heart disease Hypertension Crohns disease Grandfather Heart disease Grandmother Mental health problem Mother Family hx of lung cancer Fam hx-ischem heart disease Cancer Hypertension Grandfather Hypertension Stroke Grandmother Hypertension Stroke Son Family history of Hodgkin's disease Social History marital status: number of children: 4 household members: none lives independently: Yes caregiver/support person: No housing: house pets and animals: Yes education level: other occupational status: employed current occupational exposures/hazards: Yes mirian/latter-day: [employer] / [employer] leisure activities: exercise Smoking Status: Never smoker Tobacco: How many years used: 0 quit status: quit date established second hand exposure: Yes alcohol intake: never substance use type: does not use Smoking Status: Never smoker alcohol intake frequency: other Exam Initial Vital Signs Initial Vital Signs: Vital Signs Temperature 98.2 F 08/14/24 13:41 Pulse Rate 70 08/14/24 13:41 Respiratory Rate 18 08/14/24 13:41 Blood Pressure 154/80 H 08/14/24 13:41 Pulse Oximetry 97 08/14/24 13:41 Oxygen Delivery Method Room Air 08/14/24 13:41 General: Chronically ill-appearing, BMI of 54, able to speak in complete sentences, no respiratory distress HEENT: Moist mucous membranes, normal sclera with reactive pupils, Respiratory: Lungs are clear to auscultation, no wheezing no rales no rhonchi. Full and symmetrical air movement Cardiac: Regular rate and rhythm no murmurs no bruits Abdomen: Soft, nontender, no rebound or guarding, no flank pain Skin: Warm and dry, no rashes Neurologic: Grossly neurologically intact with no obvious asymmetries or abnormalities Extremities: No trauma, 1+ bilateral pitting edema without venous stasis changes Psych: Cooperative, appropriate insight and affect Course Orders Ordered: ED Orders 08/14/24 13:47 XR chest 1V Stat EKG-12 Lead Stat Measure peak expiratory flow ONCE RT Consult Eval and Treat NOW 08/14/24 13:55 Complete Blood Count AUTO DIFF Stat Comprehensive Metabolic Panel Stat Lactate (Lactic Acid) Stat NT-proBNP (BNP-Adult 18+) Stat Prothrombin Time INR Stat Troponin I Stat Discontinued Medications Aspirin (Aspirin 81 Mg Chew Tab) 324 mg PO NOW ONE Stop: 08/14/24 14:01 Last Admin: 08/14/24 14:11 Dose: 324 mg Documented By: RUBEN Furosemide (Furosemide 40 Mg/4 Ml Vial) 40 mg IV NOW ONE Stop: 08/14/24 15:36 Last Admin: 08/14/24 16:14 Dose: 40 mg Documented By: ZHAO Vital Signs Vital signs: Vital Signs - 8 hr 08/14/24 13:41 08/14/24 14:07 08/14/24 14:07 Temperature 98.2 F Pulse Rate 70 72 Respiratory Rate 18 Blood Pressure 154/80 H 153/67 H Pulse Oximetry 97 96 Oxygen Delivery Method Room Air 08/14/24 14:30 08/14/24 14:30 Temperature Pulse Rate 65 Respiratory Rate 20 Blood Pressure 140/61 Pulse Oximetry 98 Oxygen Delivery Method Room Air Medical Decision Making Lab Data 08/14/24 13:55 08/14/24 13:55 Labs: Lab Results 08/14/24 Range/Units 13:55 WBC 9.8 (4.5-11.0) X10^3/uL RBC 4.83 (4.0-5.2) X10^6/uL Hgb 10.7 L (12.0-16.0) g/dL Hct 34.4 L (36-46) % MCV 71.2 L (80-100) fL MCH 22.1 L (26-34) PG MCHC 31.0 (30-36) % RDW 25.3 H (11.6-14.8) % Plt Count 340 (150-400) X10^3/uL Neut % (Auto) Not Reportable Lymph % (Auto) Not Reportable Wright % (Auto) Not Reportable Eos % (Auto) Not Reportable Baso % (Auto) Not Reportable Lymph # (Auto) Not Reportable Wright # (Auto) Not Reportable Baso # (Auto) Not Reportable Total Counted 100 Seg Neutrophils % 59.0 (38-70) % Lymphocytes % (Manual) 27.0 (25-45) % Monocytes % (Manual) 10.0 (2-11) % Eosinophils % (Manual) 3.0 (2-4) % Basophils % (Manual) 1.0 (0-1) % Neutrophils # (Manual) 5782 (9311-1753) /uL RBC Morphology See below Hypochromasia 1+ H Anisocytosis 2+ H Microcytosis 1+ H PT 12.1 (9.4-12.5) SECONDS INR 1.1 (0.9-1.3) Sodium 138 (137-145) mmol/L Potassium 4.0 (3.4-5.1) mmol/L Chloride 104 (98-107) mmol/L Carbon Dioxide 26 (22-32) mmol/L BUN 19 H (7-17) mg/dL Creatinine 0.65 (0.52-1.04) mg/dL Estimated GFR > 60 (>60) mL/min BUN/Creatinine Ratio 29.2 H (6-22) Glucose 108 (80-110) mg/dL Lactate 1.7 (0.7-2.1) mmol/L Calcium 9.2 (8.4-10.2) mg/dL Total Bilirubin 0.4 (0.2-1.3) mg/dL AST 26 (14-36) IU/L ALT 20 (<35) IU/L Alkaline Phosphatase 96 (38-126) U/L Troponin I < 0.012 (0.01-0.034) ng/mL NT-Pro-B Natriuret Pep 263 H (<125) pg/mL Total Protein 7.3 (6.3-8.2) g/dL Albumin 4.0 (3.5-5.0) g/dL Globulin 3.3 (1.7-4.1) g/dL Albumin/Globulin Ratio 1.2 (1.0-2.8) MDM Narrative Medical decision making narrative: CC: Exertional dyspnea Complicating co-morbidities: Symptoms have been worse since COVID infection in May, recent cardiovascular workup did not suggest significant coronary vascular disease involvement, mild congestive heart failure with the ejection fraction at 55-60%, stable microcytic anemia Data collected from: patient Medical records reviewed: Discharge summary from [facility] July 16 is reviewed please see summary in HPI above Differential considered: Multi factorial exertional dyspnea related to recent COVID infection, congestive heart failure, BMI of 54. New viral syndrome, acute coronary syndrome, severe anemia Exam documented above, pertinent findings include: At rest patient is not short of breath and exam with is relatively benign. I do not appreciate JVD or basilar crackles. She does have mild lower extremity edema Lab Test results independently reviewed as above. Pertinent findings: CBC shows no leukocytosis, stable microcytic anemia that actually seems to be improving somewhat Chemistries are reassuring with normal renal function Troponin is undetectable BNP is minimally elevated at 263 Lactic acid is not elevated Independently reviewed EKG: Sinus rhythm at a rate of 69. No acute ischemic changes Imaging studies independently reviewed: Unremarkable chest x-ray Treatments: 40 mg of IV Lasix Discussion: 73-year-old woman with exertional dyspnea likely exacerbated by COVID infection in May, there may be a component of heart failure involved. Does not appear to be acute coronary syndrome, infection either viral or bacterial. I suspect that overall deconditioning as she has been more symptomatic since her COVID infection in May is also contributing to the exertional dyspnea. We discussed Lasix for the next 2 weeks, follow up with her primary care physician to decide whether this needs to continue or not. We will need blood work redrawn to check potassium levels and renal function. Talked about slow but progressive increases in overall activity and functional activities of daily living. There was no indication for further workup, hospitalization and She is safe for discharge at this Discharge Plan Departure Patient Disposition: Home Clinical Impression: Exertional dyspnea, Paroxysmal atrial fibrillation Congestive heart failure Qualifiers: Heart failure type: unspecified Heart failure chronicity: unspecified Qualified Code(s): I50.9 - Heart failure, unspecified Instructions: DI for Heart Failure Activity Restrictions/Additional Instructions: Thank you for coming in today I think your shortness of breath has multiple components all contributing. I believe your lung tissue is still recovering after your recent COVID infection, I think there is a small amount of fluid backup/heart failure that is making your symptoms worse and overall deconditioning and body size makes movement even more difficult. I am going to give you a prescription for furosemide and potassium, the furosemide pulse potassium out in your urine. This is a diuretic and you should expect to have quite a bit of urine out. I am hoping that this will help with the lower extremity edema and relieve some of the shortness for breath. You do need follow up with your primary care physician, I would recommend about 2 weeks to see how you are doing breathing pena, determine if you need to continue the Lasix and likely you will need blood work redone to make sure your kidney function and potassium levels remain appropriate. If you find that you are getting worse or develop any new symptoms, please feel free to return to the emergency department for further evaluation. Prescriptions: New furosemide 20 mg tablet 20 mg PO DAILY Qty: 30 0RF potassium chloride 8 mEq tablet extended release 8 meq PO DAILY Qty: 30 0RF No Action rosuvastatin 5 mg tablet 5 mg PO DAILY Qty: 90 3RF dabigatran etexilate 150 mg capsule 150 mg PO BID Qty: 180 3RF hydrochlorothiazide 25 mg tablet 25 mg PO QDAY Qty: 90 3RF allopurinol 300 mg tablet 300 mg PO DAILY colchicine 0.6 mg tablet 0.6 mg PO DAILY (DME) Disabled Parking See Rx Instructions .ROUTE .MEDSUPPLY Qty: 1 0RF Rx Instructions: Patient qualifies for disabled parking as per the attached form. albuterol sulfate 90 mcg/actuation HFA aerosol inhaler 2 puff inhalation Q4-6H PRN (Reason: shortness of breath or wheezing) Qty: 6.7 8RF ipratropium-albuterol 0.5 mg-3 mg(2.5 mg base)/3 mL solution for nebulization 3 ml inhalation Q6H PRN (Reason: shortness of breath or wheezing) Qty: 90 2RF flecainide 50 mg tablet 100 mg PO BID Rx Instructions: AM and dinner hydroxychloroquine 200 mg tablet 100 mg PO DAILY metoprolol succinate [Toprol XL] 25 mg tablet extended release 24 hr 50 mg PO QDAY Qty: 270 3RF cranberry [id number] 500-50 mg tablet,chewable PO Patient Comments: Take 1 tablet daily to protect lining of urinary tract. multivitamin Tablet 1 tab PO DAILY estradiol 0.01 % (0.1 mg/gram) cream 1 g vaginal QWEEK aspirin [Aspir-Low] 81 mg tablet,delayed release (DR/EC) 81 mg PO DAILY ferrous sulfate 325 mg (65 mg iron) tablet 325 mg PO DAILY Qty: 60 0RF Referrals: Anil Sommers MD [Primary Care Provider] - Stand Alone Forms: Patient Portal/API/Survey
[2024-08-14 14:26] LABS: NT-proBNP (BNP-Adult 18+) 263 pg/mL (<125); Troponin I < 0.012 ng/mL (0.01-0.034)
[2024-08-14 14:37] LABS: Anisocytosis 2+; Neutrophils Absolute Manual 5782 /uL (3000-5900); Total Cells Counted 100
[2024-08-14 14:38] LABS: Hypochromasia 1+; Microcytosis 1+
[2024-08-14] MEDS: FUROSEMIDE 40 MG/4 ML VIAL IV (16:14)
== END 2024-08-14 17:09 | disposition home or self-care (01) ==
PROVIDERS: Emergency Provider Emergency Medicine; PCP Internal Medicine
DX: R06.00 Dyspnea, unspecified (principal); I50.9 Heart failure, unspecified; I48.0 Paroxysmal atrial fibrillation; Z79.01 Long term (current) use of anticoagulants; E66.01 Morbid (severe) obesity due to excess calories; Z68.43 Body mass index [BMI] 50.0-59.9, adult; Z86.16 Personal history of COVID-19
CPT/HCPCS: 36415; 71045; 80053; 83605; 83880; 84484; 85007; 85025; 85610; 93005; 96374; 99284; J1940

== ENCOUNTER → 2024-10-01 13:44 | Outpatient (CLI) | payer OTHER, MEDICARE, SELFPAY ==
[2024-10-01 08:50] VITALS: BMI 53.1
--- NOTE | 2024-10-01 13:46 | DI.RAD.S_ITS ---
PROCEDURE: XR CHEST 2V INDICATIONS: dyspnea, cough, fever TECHNIQUE: 2 views of the chest were acquired. COMPARISON: [facility], CR, XR CHEST 1V, 08/14/2024, 14:10. FINDINGS: Heart, mediastinum and pulmonary vascular: Heart is borderline enlarged. Mediastinum is unremarkable. Pulmonary vascular is normal. Lungs: Clear Pleural spaces: Normal-no effusions or pneumothorax. Bones and soft tissues: Moderate degenerative disc disease seen throughout the thoracic spine with minimal chronic wedging upper midthoracic vertebral bodies IMPRESSION: Borderline cardiomegaly-no acute disease Dictated by: Anil Marvin M.D. on 10/02/2024 at 13:04 Approved by: Anil Marvin M.D. on 10/02/2024 at 13:05
== END ==
LOC: RAD 13:46
PROVIDERS: PCP Internal Medicine; Referring Provider Internal Medicine; Visit Provider Internal Medicine
DX: M51.34 Other intervertebral disc degeneration, thoracic region (principal); R06.00 Dyspnea, unspecified; R05.9 Cough, unspecified
CPT/HCPCS: 71046

== ENCOUNTER 2024-11-04 10:15 | Emergency (ER) | payer OTHER, MEDICARE, SELFPAY ==
[2024-10-01 08:50] VITALS: BMI 53.1
[2024-11-04] VITALS (37 sets, daily range): BP systolic 113–185; BP diastolic 60–121; PULSE 81–112; RESP 14–33; TEMP 36.6–36.7; O2SAT 95–100; BMI 54.1
--- NOTE | 2024-11-04 10:30 | EKG_ITS ---
[address] [address] Test Date: 2024-11-04 Pat Name: Daya Laboy Department: Room: Gender: Female Pre Billing Clinician: RAYA : 1950 Requested By: Order Number: [id number] Reading MD: Anil Sommers MD Measurements Intervals [place] Rate: 106 P: 94 AL: 204 QRS: -28 QRSD: 112 T: 93 QT: 354 QTc: 470 Interpretive Statements Sinus tachycardia Low voltage QRS Cannot rule out Anterior infarct , age undetermined NO SIGNIFICANT CHANGE FROM PRIOR TRACING Electronically Signed On 11-04-2024 11:50:10 PDT by Anil Sommers MD
--- NOTE | 2024-11-04 10:35 | DI.RAD.S_ITS ---
PROCEDURE: XR CHEST 1V INDICATIONS: Chest Pain TECHNIQUE: One view of the chest was acquired. COMPARISON: [facility], CR, XR CHEST 2V, 10/01/2024, 12:57. [facility], CR, XR CHEST 1V, 08/14/2024, 14:10. FINDINGS: Surgical changes and devices: None. Lungs and pleura: Lungs are clear. No pleural effusions or pneumothorax. Mediastinum: Mediastinal contours appear normal. Heart size is enlarged. Bones and chest wall: No suspicious bony lesions. Overlying soft tissues appear unremarkable. IMPRESSION: Cardiomegaly. No acute pulmonary process. Dictated by: Miguel Mcnulty M.D. on 11/04/2024 at 11:09 Approved by: Miguel Mcnulty M.D. on 11/04/2024 at 11:10
[2024-11-04 10:50] LABS: INR 1.2 (0.9-1.3); Prothrombin Time 13.3 SECONDS (9.4-12.5)
[2024-11-04 10:53] LABS: PTT Partial Thromboplastin Tim 54 SECONDS (25.1-36.5)
[2024-11-04 10:55] LABS: Alanine Aminotransferase 19 IU/L (<35); Albumin 3.9 g/dL (3.5-5.0); Albumin Globulin Ratio 1.3 (1.0-2.8); Alkaline Phosphatase 92 U/L (38-126); Aspartate Aminotransferase 25 IU/L (14-36); Bilirubin Total 0.3 mg/dL (0.2-1.3); Blood Urea Nitrogen 20 mg/dL (7-17); Calcium 8.6 mg/dL (8.4-10.2); Carbon Dioxide 24 mmol/L (22-32); Chloride 107 mmol/L (98-107); Creatine Kinase 33 U/L (30-135); Estimated Glomerular Filt Rate > 60 mL/min (>60); Globulin 3.1 g/dL (1.7-4.1); Glucose 140 mg/dL (70-99); HEMOLYSIS < 15 (0-50); Lipase 58 U/L (23-300); Magnesium 1.9 mg/dL (1.6-2.3); Sodium 139 mmol/L (137-145)
[2024-11-04 11:06] LABS: NT-proBNP (BNP-Adult 18+) 1890 pg/mL (<125); Troponin I < 0.012 ng/mL (0.01-0.034)
[2024-11-04 11:10] LABS: Add Manual Diff / Slide Review NO; Basophils Absolute Auto 100 /uL (0-100); Basophils Percent Auto 1.2 % (0-2); Eosinophils Absolute Auto 200 /uL (0-450); Eosinophils Percent Auto 1.9 % (2-4); Hematocrit 33.1 % (36-46); Hemoglobin 10.1 g/dL (12.0-16.0); Lymphocytes Absolute Auto 2800 /uL (1100-4500); Lymphocytes Percent Auto 27.9 % (25-40); Mean Corpuscular HGB Conc 30.5 % (30-36); Mean Corpuscular Hemoglobin 21.3 PG (26-34); Mean Corpuscular Volume 69.7 fL (80-100); Monocytes Absolute Auto 800 /uL (0-900); Monocytes Percent Auto 7.9 % (3-14); Neutrophils Absolute Auto 6200 /uL (1500-7000); Neutrophils Percent Auto 61.1 % (50-75); Platelet Count 457 X10^3/uL (150-400); Red Blood Cell Count 4.76 X10^6/uL (4.0-5.2); Red Cell Distribution Width 19.8 % (11.6-14.8); White Blood Cell Count 10.1 X10^3/uL (4.5-11.0)
[2024-11-04 11:13] LABS: Lactate (Lactic Acid) 2.5 mmol/L (0.7-2.1)
[2024-11-04 11:28] LABS: Appearance Urine UA CLEAR; Bilirubin Urine UA NEGATIVE (NEGATIVE); Color Urine UA YELLOW; Glucose Urine UA NEGATIVE (Negative); Ketones Urine UA NEGATIVE (NEGATIVE); Leukocyte Esterase Urine UA 1+ (NEGATIVE); Nitrite Urine UA NEGATIVE (Negative); Occult Blood Urine UA 3+ (Negative); Protein Urine UA NEGATIVE (Negative); Specific Gravity Urine UA 1.015 (1.000-1.035); Urobilinogen Urine UA 0.2 E.U./dL (0.2)
[2024-11-04 11:29] LABS: pH Urine UA 5.5 (4.5-8.0)
[2024-11-04 11:36] LABS: Bacteria Urine Few (2-10); Culture Indicated Urine Specimen Cultured; RBC Urine 10-30/HPF (0-5/HPF); Squamous Epithelial Cell Urine 0-1 /HPF (0-5/HPF); Urine Volume 10mL (spun); WBC Urine 5-10/HPF (0-5/HPF)
--- NOTE | 2024-11-04 11:53 | ED.ARRPALP ---
HPI - Arrhythmia/Palpitations General Chief Complaint: Arrhythmia/Palpitations Stated Complaint: Sent from Cardiology, for Cardio version AFIB Time Seen by Provider: 11/04/24 10:48 Source: patient Mode of arrival: Wheelchair History of Present Illness HPI narrative: 73-year-old female history of paroxysmal atrial fibrillation and prescribed Pradaxa, hypertension, presents to the emergency department for concerns about her heart rate. Patient reports on Monday noted increased heart rate and had some palpitations, felt ?off. ? She called her construction helper who recommended increased flecainide which she did over the weekend. Since then she has continued to have episodes where she feels unwell, has a sense of doom, has noted heart rate to be low in the 30s, sometimes elevated in the 100s according to her device at home. She has also noted low blood pressure, sometimes high blood pressure. At the onset of her symptoms she did have some numbness in her left hand that has resolved. No other stroke symptoms or prior history of stroke. She does have some exertional dyspnea, feels ?winded? when walking around her home which is new for her. She has noted some lower extremity edema and has prescribed Lasix for this. Denies any respiratory infectious illness. Denies any chest pain Related Data Home Medications ?Medication ?Instructions ?Recorded ?Confirmed aspirin 81 mg tablet,delayed 81 mg PO DAILY 07/16/19 10/01/24 release (Aspir-Low) allopurinol 300 mg tablet 300 mg PO DAILY 05/19/22 10/01/24 colchicine 0.6 mg tablet 0.6 mg PO DAILY 05/19/22 10/01/24 flecainide 50 mg tablet 100 mg PO BID 06/28/24 10/01/24 cranberry extract 500 [id number] tab PO 07/18/24 10/01/24 50 mg chewable tablet estradiol 0.01% (0.1 mg/gram) 1 g vaginal QWEEK 07/18/24 10/01/24 vaginal cream hydroxychloroquine 200 mg tablet 100 mg PO DAILY 07/18/24 10/01/24 multivitamin 1 tab PO DAILY 07/18/24 10/01/24 Previous Rx's ?Medication ?Instructions ?Recorded rosuvastatin 5 mg tablet 5 mg PO DAILY #90 tabs 01/20/22 dabigatran etexilate 150 mg capsule 150 mg PO BID #180 caps 07/25/22 Disabled Parking #1 ea 08/24/23 albuterol sulfate 90 mcg/actuation 2 puff inhalation Q4-6H PRN 08/24/23 aerosol inhaler shortness of breath or wheezing #6.7 grams ipratropium 0.5 mg-albuterol 3 mg 3 ml inhalation Q6H PRN shortness 08/24/23 (2.5 mg base)/3 mL nebulization of breath or wheezing #90 mL soln metoprolol succinate 25 mg 50 mg (2 x 25 mg) PO QDAY #270 tabs 07/18/24 tablet,extended release 24 hr (Toprol XL) ferrous sulfate 325 mg (65 mg 325 mg PO DAILY #60 tabs 07/19/24 iron) tablet cefuroxime axetil 500 mg tablet 500 mg PO BID #20 tabs 10/01/24 furosemide 20 mg tablet 20 mg PO DAILY #90 tabs 10/01/24 Allergies Allergy/AdvReac Type Severity Reaction Status Date / Time levofloxacin (From LEVAQUIN) Allergy Intermediate rash and Verified 11/04/24 10:31 tendon pain nickel (NICKEL) Allergy Intermediate RASH Verified 11/04/24 10:31 codeine Allergy Mild Anaphylaxis Verified 11/04/24 10:31 Sulfa (Sulfonamide Allergy Mild HIVES Verified 11/04/24 10:31 Antibiotics) metronidazole (From FLAGYL) AdvReac Mild headache Verified 11/04/24 10:31 morphine AdvReac Mild DROPS Verified 11/04/24 10:31 RESPIRATORY RATE Review of Systems Review of Systems Narrative: Pertinent ROS obtained and negative except as stated in HPI Patient History Medical History (Updated 11/04/24 @ 16:38 by Danna Burch MD) Chronic diastolic heart failure with preserved ejection fraction Anemia Vaginal atrophy Gout, chronic History of bladder stone Chronic anticoagulation Personal history of stroke with current residual effects (~06/2019) Anesthesia Vision disorder Sjogren's syndrome (~1962) Fibromyalgia (~1999) Actinic keratosis Mumps (~1957) Measles (~1959) Heavy menstrual period (~2009) Fibroids (~2009) Kidney stones (~1979) Frequent UTI (~1979) Irritable bowel syndrome (~2011) Mild intermittent asthma without complication (07/10/15) Diverticulosis of large intestine without perforation or abscess without bleeding Rheumatoid arthritis (06/17/11) Major depression in complete remission (06/17/11) Hypertension, essential (~1999) Paroxysmal atrial fibrillation (~2012) Surgical History History of surgery Status post panniculectomy (~01/30/17) History of salpingectomy (~01/30/17) Status post hysterectomy with oophorectomy (01/30/17) Status post surgery (12/26/16) Status post dilation and curettage Status post tubal ligation Status post tonsillectomy and adenoidectomy (~1962) History of third molar tooth extraction Status post cholecystectomy Status post breast reduction (~1999) Status post surgery (07/28/09) S/P left colectomy S/P laparoscopic supracervical hysterectomy Family History Brother Fam hx-ischem heart disease Heart disease Father Fam hx-ischem heart disease Hypertension Crohns disease Grandfather Heart disease Grandmother Mental health problem Mother Family hx of lung cancer Fam hx-ischem heart disease Cancer Hypertension Grandfather Hypertension Stroke Grandmother Hypertension Stroke Son Family history of Hodgkin's disease Social History marital status: number of children: 4 household members: none lives independently: Yes caregiver/support person: No housing: house pets and animals: Yes education level: other occupational status: employed current occupational exposures/hazards: Yes mirian/anglican: Jainism Saint / Jewish leisure activities: exercise Tobacco: How many years used: 0 quit status: quit date established second hand exposure: Yes alcohol intake: never substance use type: does not use alcohol intake frequency: other Exam Initial Vital Signs Initial Vital Signs: Vital Signs Temperature 98 F 11/04/24 10:30 Pulse Rate 107 H 11/04/24 10:30 Respiratory Rate 17 11/04/24 10:30 Blood Pressure 144/75 H 11/04/24 10:30 Pulse Oximetry 96 11/04/24 10:30 Oxygen Delivery Method Room Air 11/04/24 10:30 Constitutional: Well appearing, no acute distress, obese body habitus Head: NCAT Cardiovascular: Tachycardic, regular, distant heart sounds due to body habitus Pulmonary: CTA bilaterally, no respiratory distress Abdominal: soft, non-tender Extremities: 1+ pitting edema anterior shins up to the midshin Skin: warm and dry, no diaphoresis Neurological: Alert and oriented x3 Course Orders Ordered: Discontinued Medications Etomidate (Etomidate 2 Mg/Ml 10 Ml Vial) 10 mg IV NOW ONE Stop: 11/04/24 12:49 Fentanyl (Fentanyl 100 Mcg/2 Ml Inj) 50 mcg IV NOW ONE Stop: 11/04/24 12:49 Vital Signs Vital signs: Vital Signs - 8 hr 11/04/24 10:30 11/04/24 10:49 11/04/24 11:00 Temperature 98 F Pulse Rate 107 H 106 H Respiratory Rate 17 22 Blood Pressure 144/75 H 114/70 Pulse Oximetry 96 96 Oxygen Delivery Method Room Air 11/04/24 11:00 11/04/24 11:17 11/04/24 11:17 Temperature Pulse Rate 106 H 108 H Respiratory Rate 20 20 Blood Pressure 137/60 Pulse Oximetry 95 97 Oxygen Delivery Method 11/04/24 11:30 11/04/24 11:30 11/04/24 12:00 Temperature Pulse Rate 107 H 106 H Respiratory Rate 18 21 Blood Pressure 137/66 Pulse Oximetry 96 95 Oxygen Delivery Method 11/04/24 12:00 11/04/24 12:30 11/04/24 12:31 Temperature Pulse Rate 105 H Respiratory Rate 19 Blood Pressure 125/79 113/64 Pulse Oximetry 97 Oxygen Delivery Method 11/04/24 12:31 11/04/24 13:00 11/04/24 13:01 Temperature Pulse Rate 107 H 98 H 97 H Respiratory Rate 19 19 18 Blood Pressure Pulse Oximetry 97 97 97 Oxygen Delivery Method 11/04/24 13:01 11/04/24 13:18 11/04/24 13:18 Temperature Pulse Rate 112 H Respiratory Rate 21 Blood Pressure 172/106 H 184/119 H Pulse Oximetry 98 Oxygen Delivery Method 11/04/24 13:25 11/04/24 13:25 11/04/24 13:30 Temperature Pulse Rate 84 Respiratory Rate 14 Blood Pressure 158/71 H 145/65 H Pulse Oximetry 98 Oxygen Delivery Method 11/04/24 13:30 11/04/24 13:35 11/04/24 13:35 Temperature Pulse Rate 84 84 Respiratory Rate 16 17 Blood Pressure 142/65 H Pulse Oximetry 99 99 Oxygen Delivery Method 11/04/24 13:40 11/04/24 13:40 11/04/24 13:45 Temperature Pulse Rate 83 85 Respiratory Rate 15 21 Blood Pressure 155/79 H Pulse Oximetry 99 99 Oxygen Delivery Method 11/04/24 13:45 11/04/24 13:50 11/04/24 13:50 Temperature Pulse Rate 85 Respiratory Rate 16 Blood Pressure 161/82 H 131/82 Pulse Oximetry 99 Oxygen Delivery Method 11/04/24 13:55 11/04/24 13:55 11/04/24 14:00 Temperature Pulse Rate 88 Respiratory Rate 17 Blood Pressure 149/97 H 154/102 H Pulse Oximetry 98 Oxygen Delivery Method 11/04/24 14:00 11/04/24 14:11 11/04/24 14:11 Temperature Pulse Rate 100 H 90 Respiratory Rate 25 H 23 Blood Pressure 177/121 H Pulse Oximetry 99 98 Oxygen Delivery Method 11/04/24 14:16 11/04/24 14:16 11/04/24 14:21 Temperature Pulse Rate 85 Respiratory Rate 23 Blood Pressure 150/67 H 147/97 H Pulse Oximetry 99 Oxygen Delivery Method 11/04/24 14:21 11/04/24 14:25 11/04/24 14:25 Temperature Pulse Rate 84 84 Respiratory Rate 16 20 Blood Pressure 145/84 H Pulse Oximetry 99 99 Oxygen Delivery Method 11/04/24 14:30 11/04/24 14:30 11/04/24 14:35 Temperature Pulse Rate 85 Respiratory Rate 20 Blood Pressure 143/87 H 136/68 Pulse Oximetry 99 Oxygen Delivery Method 11/04/24 14:35 11/04/24 14:41 11/04/24 14:41 Temperature Pulse Rate 81 92 H Respiratory Rate 19 18 Blood Pressure 136/60 Pulse Oximetry 100 100 Oxygen Delivery Method 11/04/24 14:46 11/04/24 14:46 11/04/24 14:51 Temperature Pulse Rate 94 H Respiratory Rate 32 H Blood Pressure 144/63 H 126/91 H Pulse Oximetry 100 Oxygen Delivery Method 11/04/24 14:51 11/04/24 14:55 11/04/24 14:55 Temperature Pulse Rate 105 H 107 H Respiratory Rate 23 21 Blood Pressure 159/81 H Pulse Oximetry 99 99 Oxygen Delivery Method 11/04/24 15:00 11/04/24 15:01 11/04/24 15:01 Temperature Pulse Rate 107 H 108 H Respiratory Rate 30 H 19 Blood Pressure 135/77 Pulse Oximetry 98 99 Oxygen Delivery Method 11/04/24 15:05 11/04/24 15:05 11/04/24 15:15 Temperature Pulse Rate 86 Respiratory Rate 18 Blood Pressure 136/73 130/79 Pulse Oximetry 99 Oxygen Delivery Method 11/04/24 15:15 11/04/24 15:21 11/04/24 15:21 Temperature Pulse Rate 86 87 Respiratory Rate 26 H 25 H Blood Pressure 149/65 H Pulse Oximetry 99 98 Oxygen Delivery Method 11/04/24 15:26 11/04/24 15:26 11/04/24 15:30 Temperature Pulse Rate 95 H Respiratory Rate 33 H Blood Pressure 159/74 H 185/91 H Pulse Oximetry 98 Oxygen Delivery Method 11/04/24 15:30 Temperature Pulse Rate 86 Respiratory Rate 25 H Blood Pressure Pulse Oximetry 98 Oxygen Delivery Method MDM - Arrhythmia/Palpitations Lab Data 11/04/24 10:32 11/04/24 10:32 Labs: Lab Results 11/04/24 11/04/24 11/04/24 Range/Units 10:32 11:10 12:43 WBC 10.1 (4.5-11.0) X10^3/uL RBC 4.76 (4.0-5.2) X10^6/uL Hgb 10.1 L (12.0-16.0) g/dL Hct 33.1 L (36-46) % MCV 69.7 L (80-100) fL MCH 21.3 L (26-34) PG MCHC 30.5 (30-36) % RDW 19.8 H (11.6-14.8) % Plt Count 457 H (150-400) X10^3/uL Neut % (Auto) 61.1 (50-75) % Lymph % (Auto) 27.9 (25-40) % Arthur % (Auto) 7.9 (3-14) % Eos % (Auto) 1.9 L (2-4) % Baso % (Auto) 1.2 (0-2) % Neut # (Auto) 6200 (9615-5975) /uL Lymph # (Auto) 2800 (3847-1491) /uL Arthur # (Auto) 800 (0-900) /uL Eos # (Auto) 200 (0-450) /uL Baso # (Auto) 100 (0-100) /uL RBC Morphology See below Hypochromasia 1+ H Anisocytosis 2+ H Microcytosis 1+ H PT 13.3 H (9.4-12.5) SECONDS INR 1.2 (0.9-1.3) APTT 54 H (25.1-36.5) SECONDS Sodium 139 (137-145) mmol/L Potassium 4.0 (3.4-5.1) mmol/L Chloride 107 (98-107) mmol/L Carbon Dioxide 24 (22-32) mmol/L BUN 20 H (7-17) mg/dL Creatinine 0.80 (0.52-1.04) mg/dL Estimated GFR > 60 (>60) mL/min BUN/Creatinine Ratio 25.0 H (6-22) Glucose 140 H (70-99) mg/dL Lactate 2.5 H 1.3 (0.7-2.1) mmol/L Calcium 8.6 (8.4-10.2) mg/dL Magnesium 1.9 (1.6-2.3) mg/dL Total Bilirubin 0.3 (0.2-1.3) mg/dL AST 25 (14-36) IU/L ALT 19 (<35) IU/L Alkaline Phosphatase 92 (38-126) U/L Total Creatine Kinase 33 (30-135) U/L Troponin I < 0.012 < 0.012 (0.01-0.034) ng/mL NT-Pro-B Natriuret Pep 1890 H (<125) pg/mL Total Protein 7.0 (6.3-8.2) g/dL Albumin 3.9 (3.5-5.0) g/dL Globulin 3.1 (1.7-4.1) g/dL Albumin/Globulin Ratio 1.3 (1.0-2.8) Lipase 58 (23-300) U/L TSH 0.962 (0.47-4.68) uIU/mL Urine Color Yellow Urine Appearance Clear Urine pH 5.5 (4.5-8.0) Ur Specific [place] 1.015 (1.000-1.035) Urine Protein Negative (Negative) Urine Glucose (UA) Negative (Negative) g/dL Urine Ketones Negative (NEGATIVE) Urine Occult Blood 3+ H (Negative) Urine Nitrate Negative (Negative) Urine Bilirubin Negative (NEGATIVE) Urine Urobilinogen 0.2 (0.2) E.U./dL Ur Leukocyte Esterase 1+ H (NEGATIVE) Urine RBC 10-30/hpf H (0-5/HPF) Urine WBC 5-10/hpf H (0-5/HPF) Ur Squamous Epith Cells 0-1 /hpf (0-5/HPF) Urine Bacteria Few (2-10) H (None) Ur Culture Indicated? Specimen cultured Vol Urine Centrifuged 10ml (spun) MDM Narrative Medical decision making narrative: In brief, this is a 73-year-old female who was referred to the emergency department for evaluation of concerns of elevated and low heart rate, elevated BP and low BP at home, feeling ?off. ? She was referred to the emergency department by her construction helper's office In chart review: I see in chart review patient follows with cardiology at [facility]. She is noted to have history of hypertension and atrial fibrillation. She had stroke in 2020, history of heart failure with preserved ejection fraction, hypertension and hyperlipidemia as well. She is prescribed metoprolol and flecainide. Most recently I see is prescribed 75 mg metoprolol XL daily, & increased flecainide from 50 mg b.i.d. to 100 mg b.i.d.. New stress 2019 low risk study, continue Pradaxa 150 mg b.i.d.. On arrival to the emergency department, the patient is well-appearing in no acute distress. She does have some pitting edema in the lower extremities but no rales at the bases. She is in no respiratory distress. She is noted to be tachycardic, regular, on the monitor. She denies any chest pain Differential diagnoses considered but not limited to: Paroxysmal atrial fibrillation, other supraventricular tachycardia such as atrial flutter or SVT, sinus bradycardia or heart block, adverse effect of flecainide. Initial treatment plan includes: Send laboratories, monitor on tele, check EKG. May consider cardioversion as this is pt's expectation today/why she was referred to ED by cards office. EKG 10 30: Sinus tachycardia rate of 106, first-degree AV block with [place] 204, QRS 112, QTC 470, normal axis. No ST segment elevation or depression Laboratories pertinent for: No leukocytosis, stable microcytic anemia, slight BUN elevation consistent as compared to prior with creatinine 0.8, normal electrolytes, slight lactic acid elevation 2.5, normal calcium, normal magnesium, slight BNP elevation at 1800. Urinalysis is weekly suggestive of urinary tract infection Imaging pertinent for: One-view chest x-ray which shows cardiomegaly without acute pulmonary process Spoke with sap consultant Dr. Bhatia of cardiology at 1247 regarding pt's symptoms, EKG. Does recommend with 2nd EKG suggestive of atrial fibrillation proceed with elective cardioversion. On reassessment at 16 30 the patient appears to be in a sinus rhythm in the 80s. She remains well. Repeat EKG shows what appears to be a p- QRS complexes with rate of 88, [place] normal 150, QRS 98. I think at this point with EKG suggestive of NSR with HR returning to normal, cardioversion is not indicated. After some shared decision-making the patient decides that she would like to go home. I did offer possible admission for telemetry overnight given her symptoms of low heart rate and low BP. She would like to go home but will return if experiencing increasing symptoms or new symptoms. Return precautions discussed and provided prior to discharge Pertinent scoring tools used to guide clinical decision making, if applicable: Discharge Plan Departure Patient Disposition: Home Clinical Impression: Paroxysmal atrial fibrillation Instructions: DI for Atrial Fibrillation Activity Restrictions/Additional Instructions: Your rhythm seems to have corrected itself. Prior to discharge you appear to be in a sinus rhythm. Since we are not a mini overnight for observation I recommend that you observe your symptoms closely at home. You may return to the emergency department at any time if you feel that you are experiencing recurrent palpitations or new symptoms such as chest pain or shortness of breath. Please call your construction helper's office in the morning for further instruction although, as we discussed, I think it reasonable to return to your normal flecainide dose in this scenario Please keep your appointment with construction helper on Monday. The may want to do further testing as an outpatient. Prescriptions: No Action rosuvastatin 5 mg tablet 5 mg PO DAILY Qty: 90 3RF dabigatran etexilate 150 mg capsule 150 mg PO BID Qty: 180 3RF allopurinol 300 mg tablet 300 mg PO DAILY colchicine 0.6 mg tablet 0.6 mg PO DAILY (DME) Disabled Parking See Rx Instructions .ROUTE .MEDSUPPLY Qty: 1 0RF Rx Instructions: Patient qualifies for disabled parking as per the attached form. albuterol sulfate 90 mcg/actuation HFA aerosol inhaler 2 puff inhalation Q4-6H PRN (Reason: shortness of breath or wheezing) Qty: 6.7 8RF ipratropium-albuterol 0.5 mg-3 mg(2.5 mg base)/3 mL solution for nebulization 3 ml inhalation Q6H PRN (Reason: shortness of breath or wheezing) Qty: 90 2RF flecainide 50 mg tablet 100 mg PO BID Rx Instructions: AM and dinner hydroxychloroquine 200 mg tablet 100 mg PO DAILY metoprolol succinate [Toprol XL] 25 mg tablet extended release 24 hr 50 mg PO QDAY Qty: 270 3RF cranberry ntgcwpj-p-sjjaqjh 500-50 mg tablet,chewable PO Patient Comments: Take 1 tablet daily to protect lining of urinary tract. multivitamin Tablet 1 tab PO DAILY estradiol 0.01 % (0.1 mg/gram) cream 1 g vaginal QWEEK furosemide 20 mg tablet 20 mg PO DAILY Qty: 90 3RF cefuroxime axetil 500 mg tablet 500 mg PO BID Qty: 20 0RF aspirin [Aspir-Low] 81 mg tablet,delayed release (DR/EC) 81 mg PO DAILY ferrous sulfate 325 mg (65 mg iron) tablet 325 mg PO DAILY Qty: 60 0RF Referrals: Anil Sommers MD [Primary Care Provider, Internal Medicine] Stand Alone Forms: Patient Portal/API
[2024-11-04 11:55] LABS: Anisocytosis 2+; Hypochromasia 1+; Microcytosis 1+
[2024-11-04 12:33] LABS: Reflexed Lactate in 2 Hours Y
--- NOTE | 2024-11-04 12:39 | EKG_ITS ---
[address] [address] Test Date: 2024-11-04 Pat Name: Daya Laboy Department: [facility] Room: Gender: Female Nutritionist: RAYA : 1950 Requested By: Order Number: [id number] Reading MD: Anil Sommers MD Measurements Intervals [place] Rate: 91 P: MD: QRS: -3 QRSD: 114 T: 20 QT: 374 QTc: 460 Interpretive Statements Atrial fibrillation Low voltage QRS Nonspecific T wave abnormality Electronically Signed On 11-04-2024 15:02:10 PDT by Anil Sommers MD
[2024-11-04 13:00] LABS: Lactate 2HR (Lactic Acid Rflx) 1.3 mmol/L (0.7-2.1)
[2024-11-04 13:13] LABS: Troponin I < 0.012 ng/mL (0.01-0.034)
[2024-11-04 13:17] LABS: Thyroid Stimulating Hormone 0.962 uIU/mL (0.47-4.68)
--- NOTE | 2024-11-04 14:13 | PC.NURSE ---
Pad on pt for future cardioversion, pt updated to plan. Pt c/o some fluttering to chest, denies CP/SOB/headache, dizziness at this time. Pt on quality assurance monitor chassis, call light within reach, no other needs at this time
--- NOTE | 2024-11-04 16:00 | EKG_ITS ---
[place] [id number] [place] [id number] Test Date: 2024-11-04 Pat Name: Daya Laboy Department: [facility] Room: Gender: Female Telephone Operators Supervisor: KIERA : 1950 Requested By: Order Number: [id number] Reading MD: Anil Sommers MD Measurements Intervals [place] Rate: 88 P: 88 ND: 150 QRS: 106 QRSD: 98 T: 118 QT: 230 QTc: 278 Interpretive Statements Sinus rhythm with premature atrial complexes in a pattern of bigeminy Rightward axis Pulmonary disease pattern Nonspecific ST and T wave abnormality Electronically Signed On 11-04-2024 16:59:40 PDT by Anil Sommers MD
== END 2024-11-04 17:10 | disposition home or self-care (01) ==
PROVIDERS: Emergency Provider Student in an Organized Health Care Education/Training Program; PCP Internal Medicine
DX: I48.0 Paroxysmal atrial fibrillation (principal); Z79.01 Long term (current) use of anticoagulants
CPT/HCPCS: 36415; 71045; 80053; 81001; 82550; 83605; 83690; 83735; 83880; 84443; 84484; 85025; 85610; 85730; 87077; 87086; 87186; 93005; 93010; 99283; 99284

== ENCOUNTER 2024-11-25 19:22 | Emergency (ER) | payer OTHER, MEDICARE, SELFPAY ==
[2024-10-01 08:50] VITALS: BMI 53.1
[2024-11-25] VITALS (9 sets, daily range): BP systolic 111–145; BP diastolic 46–82; PULSE 74–88; RESP 16–26; TEMP 36.9; O2SAT 92–96; BMI 53.6
--- NOTE | 2024-11-25 19:24 | EKG_ITS ---
[place] [id number] [place] [id number] Test Date: 2024-11-25 Pat Name: Daya Laboy Department: [facility] Room: Gender: Female Airline Security Representative: : 1950 Requested By: Order Number: [id number] Reading MD: Anil Sommers MD Measurements Intervals [place] Rate: 83 P: SD: QRS: 42 QRSD: 124 T: 140 QT: 322 QTc: 378 Interpretive Statements Atrial fibrillation Septal infarct , age undetermined Marked ST abnormality, possible lateral subendocardial injury Electronically Signed On 11-26-2024 7:48:21 PDT by Anil Sommers MD
--- NOTE | 2024-11-25 19:29 | DI.RAD.S_ITS ---
PROCEDURE: XR CHEST 1V INDICATIONS: Lightheadedness/chest pain TECHNIQUE: One view of the chest was acquired. COMPARISON: [facility], CR, XR CHEST 1V, 11/04/2024, 10:31. FINDINGS: Surgical changes and devices: None. Lungs and pleura: Lungs are clear. No pleural effusions or pneumothorax. Mediastinum: Mediastinal contours appear normal. Heart size is enlarged. Bones and chest wall: No suspicious bony lesions. Overlying soft tissues appear unremarkable. IMPRESSION: No acute pulmonary process. Dictated by: Glory Herbert M.D. on 11/25/2024 at 20:34 Approved by: Glory Herbert M.D. on 11/25/2024 at 20:35
--- NOTE | 2024-11-25 19:30 | ED.CHESTPAIN ---
HPI - Chest Pain General Chief Complaint: Dizziness Stated Complaint: felt like passing out Time Seen by Provider: 11/25/24 19:29 Source: patient, EMS, RN notes reviewed and old records reviewed Mode of arrival: EMS Limitations: no limitations History of Present Illness HPI narrative: 73-year-old female history of paroxysmal atrial fibrillation on Pradaxa, flecainide, metoprolol, furosemide with complaint of feeling sort of lightheaded, patient states she just did not feel right was checking her monitor at home and noted her heart rate was bouncing around 150s to 130s for EMS that is been in the 80s although has been atrial fibrillation. She describes feeling lightheaded no syncope. No diaphoresis. Notes little bit of chest discomfort currently but no shortness of breath. She had some nausea earlier today. No vomiting. She does not she was had some recent diarrhea on Monday. Denies any fevers or chills. Patient states she was anticoagulated with Pradaxa, had her evening Pradaxa and flecainide dose about 430 this evening has been scheduled for cardioversions in the past but always flipped back to normal rhythm and has appointment in December to be scheduled for an ablation. She was never had any cardiac interventions. Reports allergies to codeine and sulfa. Follows with Dr. Sommers for primary care. Dr. Parry for Cardiology. Related Data Home Medications ?Medication ?Instructions ?Recorded ?Confirmed aspirin 81 mg tablet,delayed 81 mg PO DAILY 07/16/19 10/01/24 release (Aspir-Low) allopurinol 300 mg tablet 300 mg PO DAILY 05/19/22 10/01/24 colchicine 0.6 mg tablet 0.6 mg PO DAILY 05/19/22 10/01/24 flecainide 50 mg tablet 100 mg PO BID 06/28/24 10/01/24 cranberry extract 500 [id number]-[id number] tab PO 07/18/24 10/01/24 50 mg chewable tablet estradiol 0.01% (0.1 mg/gram) 1 g vaginal QWEEK 07/18/24 10/01/24 vaginal cream hydroxychloroquine 200 mg tablet 100 mg PO DAILY 07/18/24 10/01/24 multivitamin 1 tab PO DAILY 07/18/24 10/01/24 Previous Rx's ?Medication ?Instructions ?Recorded rosuvastatin 5 mg tablet 5 mg PO DAILY #90 tabs 01/20/22 dabigatran etexilate 150 mg capsule 150 mg PO BID #180 caps 07/25/22 Disabled Parking #1 ea 08/24/23 albuterol sulfate 90 mcg/actuation 2 puff inhalation Q4-6H PRN 08/24/23 aerosol inhaler shortness of breath or wheezing #6.7 grams ipratropium 0.5 mg-albuterol 3 mg 3 ml inhalation Q6H PRN shortness 08/24/23 (2.5 mg base)/3 mL nebulization of breath or wheezing #90 mL soln metoprolol succinate 25 mg 50 mg (2 x 25 mg) PO QDAY #270 tabs 07/18/24 tablet,extended release 24 hr (Toprol XL) ferrous sulfate 325 mg (65 mg 325 mg PO DAILY #60 tabs 07/19/24 iron) tablet furosemide 20 mg tablet 20 mg PO DAILY #90 tabs 10/01/24 cefuroxime axetil 500 mg tablet 500 mg PO BID #20 tabs 11/06/24 cephalexin 500 mg capsule 500 mg PO TID 7 days #21 caps 11/25/24 Allergies Allergy/AdvReac Type Severity Reaction Status Date / Time levofloxacin (From LEVAQUIN) Allergy Intermediate rash and Verified 11/25/24 19:28 tendon pain nickel (NICKEL) Allergy Intermediate RASH Verified 11/25/24 19:28 codeine Allergy Mild Anaphylaxis Verified 11/25/24 19:28 Sulfa (Sulfonamide Allergy Mild HIVES Verified 11/25/24 19:28 Antibiotics) metronidazole (From FLAGYL) AdvReac Mild headache Verified 11/25/24 19:28 morphine AdvReac Mild DROPS Verified 11/25/24 19:28 RESPIRATORY RATE Review of Systems Review of Systems ROS Unobtainable: All systems reviewed & are unremarkable except as noted in HPI and below Patient History Medical History Chronic diastolic heart failure with preserved ejection fraction Anemia Vaginal atrophy Gout, chronic History of bladder stone Chronic anticoagulation Personal history of stroke with current residual effects (~06/2019) Anesthesia Vision disorder Sjogren's syndrome (~1962) Fibromyalgia (~1999) Actinic keratosis Mumps (~1958) Measles (~1959) Heavy menstrual period (~2009) Fibroids (~2009) Kidney stones (~1979) Frequent UTI (~1979) Irritable bowel syndrome (~2011) Mild intermittent asthma without complication (07/10/15) Diverticulosis of large intestine without perforation or abscess without bleeding Rheumatoid arthritis (06/17/11) Major depression in complete remission (06/17/11) Hypertension, essential (~1999) Paroxysmal atrial fibrillation (~2012) Surgical History History of surgery Status post panniculectomy (~01/30/17) History of salpingectomy (~01/30/17) Status post hysterectomy with oophorectomy (01/30/17) Status post surgery (12/26/16) Status post dilation and curettage Status post tubal ligation Status post tonsillectomy and adenoidectomy (~1962) History of third molar tooth extraction Status post cholecystectomy Status post breast reduction (~1999) Status post surgery (07/28/09) S/P left colectomy S/P laparoscopic supracervical hysterectomy Family History Brother Fam hx-ischem heart disease Heart disease Father Fam hx-ischem heart disease Hypertension Crohns disease Grandfather Heart disease Grandmother Mental health problem Mother Family hx of lung cancer Fam hx-ischem heart disease Cancer Hypertension Grandfather Hypertension Stroke Grandmother Hypertension Stroke Son Family history of Hodgkin's disease Social History marital status: number of children: 4 household members: none lives independently: Yes caregiver/support person: No housing: house pets and animals: Yes education level: other occupational status: employed current occupational exposures/hazards: Yes mirian/sikh: [employer] / [employer] leisure activities: exercise Smoking Status: Never smoker Tobacco: How many years used: 0 quit status: quit date established second hand exposure: Yes alcohol intake: never substance use type: does not use alcohol intake frequency: other Exam Narrative Exam Narrative: GENERAL: Alert and oriented x three, obese female in mild distress. No diaphoresis. HEENT: Head normocephalic, atraumatic, EOMI, pupils reactive, face symmetric, moist mucous membranes NECK: Supple, full range of motion CARDIOVASCULAR: Irregularly irregular rhythm but normal rate without murmurs, rubs or gallops. Trace edema bilateral lower extremities. RESPIRATORY: Breath sounds equal bilaterally, no wheezes rales or rhonchi. ABDOMEN: Soft, nontender. Normoactive bowel sounds all 4 quadrants. No guarding or rebound, rigidity, no mass : No CVA tenderness EXTREMITIES: Normal range of motion. Neurovascularly intact NEUROLOGICAL: Cranial nerves II through XII grossly intact. Moving all extremities SKIN: Warm, dry, no petechiae, no rashes or lesions. Initial Vital Signs Initial Vital Signs: Vital Signs Temperature 98.5 F 11/25/24 19:28 Pulse Rate 74 11/25/24 19:28 Respiratory Rate 16 11/25/24 19:28 Blood Pressure 111/82 11/25/24 19:28 Pulse Oximetry 95 11/25/24 19:28 Oxygen Delivery Method Room Air 11/25/24 19:28 Course Orders Ordered: ED Orders 11/25/24 19:24 EKG-12 Lead Stat 11/25/24 19:29 XR chest 1V Stat EKG-12 Lead Stat 11/25/24 19:30 BNP [NT-proBNP (BNP-Adult 18+)] Stat Complete Blood Count AUTO DIFF Stat Comprehensive Metabolic Panel Stat Lipase Stat Magnesium Stat Troponin & CK Cardiac Panel Stat 11/25/24 21:20 Urine Culture Stat Urine Microscopic Stat 11/25/24 21:25 Trop I [Troponin I] Stat Discontinued Medications Cephalexin HCl (Cephalexin 250 Mg Capsule) 500 mg PO NOW ONE Stop: 11/25/24 21:38 Last Admin: 11/25/24 22:35 Dose: 500 mg Documented By: AB Vital Signs Vital signs: Vital Signs - 8 hr 11/25/24 19:28 11/25/24 20:02 11/25/24 20:03 Temperature 98.5 F Pulse Rate 74 85 Respiratory Rate 16 16 Blood Pressure 111/82 113/68 Pulse Oximetry 95 95 Oxygen Delivery Method Room Air 11/25/24 20:03 11/25/24 20:30 11/25/24 20:30 Temperature Pulse Rate 84 80 Respiratory Rate 20 16 Blood Pressure 127/71 Pulse Oximetry 94 92 Oxygen Delivery Method 11/25/24 21:00 11/25/24 21:00 11/25/24 21:13 Temperature Pulse Rate 79 88 Respiratory Rate 16 22 Blood Pressure 129/60 Pulse Oximetry 94 95 Oxygen Delivery Method 11/25/24 21:13 11/25/24 21:15 11/25/24 21:15 Temperature Pulse Rate 80 Respiratory Rate 26 H Blood Pressure 113/46 L 118/57 L Pulse Oximetry 95 Oxygen Delivery Method 11/25/24 21:30 11/25/24 21:30 11/25/24 22:00 Temperature Pulse Rate 87 80 Respiratory Rate 19 22 Blood Pressure 145/69 H Pulse Oximetry 96 94 Oxygen Delivery Method Room Air 11/25/24 22:00 Temperature Pulse Rate Respiratory Rate Blood Pressure 131/76 Pulse Oximetry Oxygen Delivery Method MDM - Chest Pain Lab Data 11/25/24 19:30 11/25/24 19:30 Labs: Lab Results 11/25/24 11/25/24 11/25/24 Range/Units 19:30 21:20 21:25 WBC 11.7 H (4.5-11.0) X10^3/uL RBC 4.53 (4.0-5.2) X10^6/uL Hgb 9.4 L (12.0-16.0) g/dL Hct 30.2 L (36-46) % MCV 66.7 L (80-100) fL MCH 20.8 L (26-34) PG MCHC 31.2 (30-36) % RDW 19.1 H (11.6-14.8) % Plt Count 395 (150-400) X10^3/uL Neut % (Auto) 65.4 (50-75) % Lymph % (Auto) 25.3 (25-40) % Powell % (Auto) 6.8 (3-14) % Eos % (Auto) 1.3 L (2-4) % Baso % (Auto) 1.2 (0-2) % Neut # (Auto) 7700 H (8555-4351) /uL Lymph # (Auto) 3000 (7837-5992) /uL Powell # (Auto) 800 (0-900) /uL Eos # (Auto) 100 (0-450) /uL Baso # (Auto) 100 (0-100) /uL RBC Morphology See below Anisocytosis 1+ H Microcytosis 1+ H Sodium 138 (137-145) mmol/L Potassium 4.3 (3.4-5.1) mmol/L Chloride 103 (98-107) mmol/L Carbon Dioxide 29 (22-32) mmol/L BUN 19 H (7-17) mg/dL Creatinine 0.69 (0.52-1.04) mg/dL Estimated GFR > 60 (>60) mL/min BUN/Creatinine Ratio 27.5 H (6-22) Glucose 115 H (70-99) mg/dL Calcium 8.8 (8.4-10.2) mg/dL Magnesium 2.0 (1.6-2.3) mg/dL Total Bilirubin 0.5 (0.2-1.3) mg/dL AST 39 H (14-36) IU/L ALT 19 (<35) IU/L Alkaline Phosphatase 81 (38-126) U/L Total Creatine Kinase 32 (30-135) U/L Troponin I < 0.012 < 0.012 (0.01-0.034) ng/mL NT-Pro-B Natriuret Pep 1320 H (<125) pg/mL Total Protein 7.2 (6.3-8.2) g/dL Albumin 3.9 (3.5-5.0) g/dL Globulin 3.3 (1.7-4.1) g/dL Albumin/Globulin Ratio 1.2 (1.0-2.8) Lipase 51 (23-300) U/L Urine RBC 0-1/hpf D (0-5/HPF) Urine WBC 5-10/hpf H (0-5/HPF) Ur Squamous Epith Cells 1-5 /hpf (0-5/HPF) Urine Bacteria Many (>30) H (None) Ur Culture Indicated? Specimen cultured Vol Urine Centrifuged 10ml (spun) Urine Dip Bedside Urine Glucose Negative Bedside Urine Bilirubin - Negative Bedside Urine Ketone - Negative Urine Specific [place] 1.015 Bedside Urine Occult Blood +++ Bedside Urine pH 6.5 Bedside Urine Protein + 30 Bedside Urine Urobilinogen - Negative Bedside Urine Nitrite + Positive Bedside Urine Leukocytes + 70 Esterase ECG Data Attestation: I personally reviewed and interpreted this ECG as follows: Prior ECG tracings: available for review Interpretation: Atrial fib with a competing junctional pacemaker. Patient was Q-wave in 3 and AVF, no ST elevation V1 2 and 3 also have similar changes to EKG when patient was in atrial fibrillation on 11/04/2024. Atrial fibrillation rate of 77 QRS of 120 QTC of 389, no acute ST changes appears similar to prior. MDM Narrative Medical decision making narrative: EKG shows atrial fibrillation, nonspecific change. Labs show white count 11.7 hemoglobin 9.4 appears consistent with priors microcytic, platelets of 395. INR is 1.2 PTT is 54 patient was on Pradaxa, BUN 19 electrolytes are appropriate glucose is 115 AST 39 total bili is 0.5 ALT is 19 alk-phos is 81 lipase is 51, troponins less than 0.012 with a BNP of 1320 improved from October of 1889 repeat troponin is less than 0.012. Chest x-ray shows no acute process On recheck, patient feels improved she notes she has some urinary symptoms point of care urine is suspicious for infection. Patient is started on oral Keflex. Discussed possibility of cardioversion but after discussion of risks versus benefits patient elects not to pursue. She notes she was very sensitive to sedation, she was hemodynamically stable she has been in and out of proximally atrial fibrillation in the past in his currently rate controlled here in the department. She has follow up in December with Cardiology but we will reach out tomorrow to try to see them sooner. Discharge Plan Departure Patient Disposition: Home Clinical Impression: Paroxysmal atrial fibrillation, UTI (urinary tract infection) Activity Restrictions/Additional Instructions: Follow up with your cardiology team. Call tomorrow to see if you can be seen sooner. You do appear to be in atrial fibrillation but rate controlled at this time. Take oral antibiotics until completed. Prescription sent to [facility] in [place]. Please return for new or worsening symptoms, lightheadedness or passing out, persistent vomiting, new swelling of your extremities, new chest pain, new shortness of breath or other new or concerning changes. Prescriptions: New cephalexin 500 mg capsule 500 mg PO TID 7 Days Qty: 21 0RF No Action rosuvastatin 5 mg tablet 5 mg PO DAILY Qty: 90 3RF dabigatran etexilate 150 mg capsule 150 mg PO BID Qty: 180 3RF cefuroxime axetil 500 mg tablet 500 mg PO BID Qty: 20 0RF allopurinol 300 mg tablet 300 mg PO DAILY colchicine 0.6 mg tablet 0.6 mg PO DAILY (DME) Disabled Parking See Rx Instructions .ROUTE .MEDSUPPLY Qty: 1 0RF Rx Instructions: Patient qualifies for disabled parking as per the attached form. albuterol sulfate 90 mcg/actuation HFA aerosol inhaler 2 puff inhalation Q4-6H PRN (Reason: shortness of breath or wheezing) Qty: 6.7 8RF ipratropium-albuterol 0.5 mg-3 mg(2.5 mg base)/3 mL solution for nebulization 3 ml inhalation Q6H PRN (Reason: shortness of breath or wheezing) Qty: 90 2RF flecainide 50 mg tablet 100 mg PO BID Rx Instructions: AM and dinner hydroxychloroquine 200 mg tablet 100 mg PO DAILY metoprolol succinate [Toprol XL] 25 mg tablet extended release 24 hr 50 mg PO QDAY Qty: 270 3RF cranberry [id number] 500-50 mg tablet,chewable PO Patient Comments: Take 1 tablet daily to protect lining of urinary tract. multivitamin Tablet 1 tab PO DAILY estradiol 0.01 % (0.1 mg/gram) cream 1 g vaginal QWEEK furosemide 20 mg tablet 20 mg PO DAILY Qty: 90 3RF aspirin [Aspir-Low] 81 mg tablet,delayed release (DR/EC) 81 mg PO DAILY ferrous sulfate 325 mg (65 mg iron) tablet 325 mg PO DAILY Qty: 60 0RF Referrals: Anil Sommers MD [Primary Care Provider, Internal Medicine] Wendy Parry MD [Physician, Cardiology] Stand Alone Forms: Patient Portal/API
--- NOTE | 2024-11-25 19:38 | EKG_ITS ---
[address] [address] Test Date: 2024-11-25 Pat Name: Daya Laboy Department: 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
[2024-11-25 19:54] LABS: Add Manual Diff / Slide Review NO; Hematocrit 30.2 % (36-46); Hemoglobin 9.4 g/dL (12.0-16.0); Lymphocytes Absolute Auto 3000 /uL (1100-4500); Mean Corpuscular HGB Conc 31.2 % (30-36); Mean Corpuscular Hemoglobin 20.8 PG (26-34); Mean Corpuscular Volume 66.7 fL (80-100); Platelet Count 395 X10^3/uL (150-400)
[2024-11-25 20:05] LABS: Alanine Aminotransferase 19 IU/L (<35); Albumin 3.9 g/dL (3.5-5.0); Albumin Globulin Ratio 1.2 (1.0-2.8); Alkaline Phosphatase 81 U/L (38-126); Blood Urea Nitrogen 19 mg/dL (7-17); Calcium 8.8 mg/dL (8.4-10.2); Carbon Dioxide 29 mmol/L (22-32); Chloride 103 mmol/L (98-107); Creatine Kinase 32 U/L (30-135); Estimated Glomerular Filt Rate > 60 mL/min (>60); Globulin 3.3 g/dL (1.7-4.1); Glucose 115 mg/dL (70-99); Lipase 51 U/L (23-300); Magnesium 2.0 mg/dL (1.6-2.3); Sodium 138 mmol/L (137-145); Total Protein 7.2 g/dL (6.3-8.2)
[2024-11-25 20:06] LABS: HEMOLYSIS 71 (0-50)
[2024-11-25 20:07] LABS: Potassium 4.3 mmol/L (3.4-5.1)
[2024-11-25 20:10] LABS: Anisocytosis 1+; Microcytosis 1+
[2024-11-25 20:14] LABS: NT-proBNP (BNP-Adult 18+) 1320 pg/mL (<125)
[2024-11-25 20:17] LABS: Troponin I < 0.012 ng/mL (0.01-0.034)
[2024-11-25 21:51] LABS: Culture Indicated Urine Specimen Cultured
[2024-11-25 22:00] LABS: Troponin I < 0.012 ng/mL (0.01-0.034)
== END 2024-11-25 22:45 | disposition home or self-care (01) ==
PROVIDERS: Emergency Provider Emergency Medicine; PCP Internal Medicine
DX: I48.0 Paroxysmal atrial fibrillation (principal); Z79.01 Long term (current) use of anticoagulants; R07.9 Chest pain, unspecified; N39.0 Urinary tract infection, site not specified
CPT/HCPCS: 71045; 80053; 81003; 81015; 82550; 83690; 83735; 83880; 84484; 85025; 87077; 87086; 87186; 93005; 93010; 99284

== ENCOUNTER 2024-12-10 16:00 | Emergency (ER) | payer OTHER, MEDICARE, SELFPAY ==
[2024-10-01 08:50] VITALS: BMI 53.1
[2024-12-10] VITALS (9 sets, daily range): BP systolic 136–159; BP diastolic 62–68; PULSE 62–85; RESP 14–20; TEMP 36.9; O2SAT 94–97; BMI 53.6
--- NOTE | 2024-12-10 16:12 | DI.RAD.S_ITS ---
PROCEDURE: XR CHEST 1V INDICATIONS: Shortness of breath TECHNIQUE: One view of the chest was acquired. COMPARISON: [facility], CR, XR CHEST 1V, 11/25/2024, 19:47. FINDINGS: Surgical changes and devices: None. Lungs and pleura: Lungs are clear. No pleural effusions or pneumothorax. Mediastinum: Stable cardiomegaly. Bones and chest wall: No suspicious bony lesions. Overlying soft tissues appear unremarkable. IMPRESSION: No acute cardiopulmonary abnormality is seen. Dictated by: Gloria Elizalde M.D. on 12/10/2024 at 17:04 Approved by: Gloria Elizalde M.D. on 12/10/2024 at 17:05
--- NOTE | 2024-12-10 16:21 | EKG_ITS ---
[address] [address] Test Date: 2024-12-10 Pat Name: Daya Laboy Department: Room: Gender: Female Sail Maker: KIERA : 1950 Requested By: Order Number: [id number] Reading MD: Harish Osorio Measurements Intervals [place] Rate: 65 P: [place]: 248 QRS: -19 QRSD: 118 T: 10 QT: 480 QTc: 499 Interpretive Statements Sinus rhythm with 1st degree AV block Low voltage QRS Septal infarct , age undetermined Electronically Signed On 12-11-2024 15:05:11 PDT by Harish Osorio
[2024-12-10 16:52] LABS: Add Manual Diff / Slide Review NO; Hematocrit 29.3 % (36-46); Hemoglobin 8.9 g/dL (12.0-16.0); Lymphocytes Absolute Auto 2800 /uL (1100-4500); Mean Corpuscular HGB Conc 30.5 % (30-36); Mean Corpuscular Hemoglobin 20.1 PG (26-34); Mean Corpuscular Volume 66.1 fL (80-100); Platelet Count 429 X10^3/uL (150-400)
[2024-12-10 16:53] LABS: INR 1.2 (0.9-1.3); Prothrombin Time 13.1 SECONDS (9.4-12.5)
[2024-12-10 17:01] LABS: Lactate (Lactic Acid) 1.6 mmol/L (0.7-2.1)
[2024-12-10 17:03] LABS: Alanine Aminotransferase 19 IU/L (<35); Albumin 3.8 g/dL (3.5-5.0); Albumin Globulin Ratio 1.2 (1.0-2.8); Alkaline Phosphatase 102 U/L (38-126); Blood Urea Nitrogen 20 mg/dL (7-17); Calcium 8.4 mg/dL (8.4-10.2); Carbon Dioxide 28 mmol/L (22-32); Chloride 104 mmol/L (98-107); Estimated Glomerular Filt Rate > 60 mL/min (>60); Globulin 3.2 g/dL (1.7-4.1); Glucose 99 mg/dL (70-99); HEMOLYSIS 23 (0-50); Potassium 3.8 mmol/L (3.4-5.1); Sodium 139 mmol/L (137-145); Total Protein 7.0 g/dL (6.3-8.2)
[2024-12-10 17:07] LABS: Microcytosis 1+
[2024-12-10 17:07] LABS: Appearance Urine UA CLEAR; Bilirubin Urine UA NEGATIVE (NEGATIVE); Color Urine UA YELLOW; Glucose Urine UA NEGATIVE (Negative); Ketones Urine UA NEGATIVE (NEGATIVE); Leukocyte Esterase Urine UA TRACE (NEGATIVE); Nitrite Urine UA NEGATIVE (Negative); Occult Blood Urine UA 3+ (Negative); Protein Urine UA 2+ (Negative); Specific Gravity Urine UA >=1.030 (1.000-1.035); Urobilinogen Urine UA 1.0 E.U./dL (0.2)
[2024-12-10 17:14] LABS: NT-proBNP (BNP-Adult 18+) 675 pg/mL (<125); Troponin I < 0.012 ng/mL (0.01-0.034)
[2024-12-10 17:35] LABS: Culture Indicated Urine Specimen Cultured; pH Urine UA 6.0 (4.5-8.0)
[2024-12-10] MEDS: DABIGATRAN 75 MG CAPSULE 150 MG PO (20:48)
[2024-12-10] MEDS: FLECAINIDE 100 MG TABLET PO (20:48)
--- NOTE | 2024-12-10 20:55 | ED_ITS ---
HPI - SOB/Dyspnea General Chief Complaint: Shortness of Breath/Dyspnea Stated Complaint: SOB, edema Time Seen by Provider: 12/10/24 19:50 Source: patient Mode of arrival: Ambulatory Limitations: no limitations History of Present Illness HPI Narrative: Patient is a 73-year-old female with a past medical history of CHF with preserved ejection fraction, hypertension, asthma, AFib on Pradaxa comes into the ED from home for evaluation of shortness of breath. She states that this has been ongoing persistent for the past several days, she states that whenever she tries to lay down she has difficulty breathing, also states that she feels more short of breath with the exertion, states she has been using her inhaler without any much relief, she states that she has contact her rest room attendant and increased her Lasix to 40 mg a day states that this did help but still having some mild shortness of breath. She does mention that she has noticed persistent lower extremity edema, also complaining of coughing, she states that she was seen at [facility] on Monday and had a cardioversion, patient follows with Dr. Hook for Cardiology. States that she is supposed to have an appointment with him on 01/07/2025 for possible ablation Related Data Home Medications ?Medication ?Instructions ?Recorded ?Confirmed aspirin 81 mg tablet,delayed 81 mg PO DAILY 07/16/19 0 10/01/24 release (Aspir-Low) allopurinol 300 mg tablet 300 mg PO DAILY 05/19/22 colchicine 0.6 mg tablet 0.6 mg PO DAILY 05/19/22 flecainide 50 mg tablet 100 mg PO BID 06/28/2410/01 cranberry extract 500 lg-w-ccefsva tab PO 07/18/24 50 mg chewable tablet estradiol 0.01% (0.1 mg/gram) 1 g vaginal QWEEK 10/01/24 vaginal cream hydroxychloroquine 200 mg tablet 100 mg PO DAILY 07/1810/01/24 multivitamin 1 tab PO DAILY 07/18/2409/19 Previous Rx's ?Medication ?Instructions ?Recorded rosuvastatin 5 mg tablet 5 mg PO DAILY #90 tabs 01/20 dabigatran etexilate 150 mg capsule 150 mg PO BID #180 caps 07/25/22 Disabled Parking #1 ea 08/24/23 albuterol sulfate 90 mcg/actuation 2 puff inhalation Q 4-6H PRN 08/24/23 aerosol inhaler shortness of breath or wheez ing #6.7 grams ipratropium 0.5 mg-albuterol 3 mg 3 ml inhalation Q6H PRN shortness 08/24/23 (2.5 mg base)/3 mL nebulization of breath or wheezing #90 mL soln metoprolol succinate 25 mg 50 mg (2 x 25 mg) PO QDAY # 270 tabs 07/18/24 tablet,extended release 24 hr (Toprol XL) ferrous sulfate 325 mg (65 mg 325 mg PO DAILY #60 tabs 07/19/24 iron) tablet furosemide 20 mg tablet 20 mg PO DAILY #90 tabs 09/19 08/13 cefuroxime axetil 500 mg tablet 500 mg PO BID #20 tabs 11/06/24 albuterol sulfate 90 mcg/actuation 2 puff inhalation Q 4-6H PRN 12/10/24 aerosol inhaler shortness of breath or wheez ing #8.5 grams prednisone 20 mg tablet 20 mg PO DAILY 5 days #5 tab s 12/10/24 Allergies Allergy/AdvReac Type Severity Reaction Status Date / Time levofloxacin (From LEVAQUIN) Allergy Intermediate rash and Verified 11/25/24 19:28 tendon pain nickel (NICKEL) Allergy Intermediate RASH Verified 11/25/24 19:28 codeine Allergy Mild Anaphylaxis Verified 11/25/24 19:28 Sulfa (Sulfonamide Allergy Mild HIVES Verified 11/25/24 19:28 Antibiotics) metronidazole (From FLAGYL) AdvReac Mild headache Verified 11/25/24 19:28 morphine AdvReac Mild DROPS Verified 11/25/24 19:28 RESPIRATORY RATE iodine AdvReac Swelling Verified 12/10/24 20:02 of Lip/Tongue/Throat Review of Systems Review of Systems Narrative: General: Denies fever, chills, weight loss HEENT: Denies headache, eye drainage, eye irritation, head trauma, sore throat, voice change Cardiovascular: Denies any chest pain, palpitations, tachycardia Respiratory: Positive shortness of breath, cough, denies wheeze, stridor GI/: Denies any abdominal pain, nausea, vomiting, diarrhea, bright red blood per rectum, melanotic stools, urinary frequency, urinary retention, dysuria, hematuria MSK: Denies any joint pain, muscle pains, swelling Skin: Denies any rashes, lesions, discoloration Neuro: Denies any headache, lightheadedness, dizziness, fainting, weakness Psych: Denies SI/HI Patient History Medical History Chronic diastolic heart failure with preserved ejection fraction Anemia Vaginal atrophy Gout, chronic History of bladder stone Chronic anticoagulation Personal history of stroke with current residual effects (~06/2019) Anesthesia Vision disorder Sjogren's syndrome (~1962) Fibromyalgia (~1999) Actinic keratosis Mumps (~1957) Measles (~1959) Heavy menstrual period (~2009) Fibroids (~2009) Kidney stones (~1979) Frequent UTI (~1979) Irritable bowel syndrome (~2011) Mild intermittent asthma without complication (07/10/15) Diverticulosis of large intestine without perforation or abscess without bleeding Rheumatoid arthritis (06/17/11) Major depression in complete remission (06/17/11) Hypertension, essential (~1999) Paroxysmal atrial fibrillation (~2012) Surgical History History of surgery Status post panniculectomy (~01/30/17) History of salpingectomy (~01/30/17) Status post hysterectomy with oophorectomy (01/30/17) Status post surgery (12/26/16) Status post dilation and curettage Status post tubal ligation Status post tonsillectomy and adenoidectomy (~1962) History of third molar tooth extraction Status post cholecystectomy Status post breast reduction (~1999) Status post surgery (07/28/09) S/P left colectomy S/P laparoscopic supracervical hysterectomy Family History Brother Fam hx-ischem heart disease Heart disease Father Fam hx-ischem heart disease Hypertension Crohns disease Grandfather Heart disease Grandmother Mental health problem Mother Family hx of lung cancer Fam hx-ischem heart disease Cancer Hypertension Grandfather Hypertension Stroke Grandmother Hypertension Stroke Son Family history of Hodgkin's disease Social History marital status: number of children: 4 household members: none lives independently: Yes caregiver/support person: No housing: house pets and animals: Yes education level: other occupational status: employed current occupational exposures/hazards: Yes mirian/religious: Mu-ism Saint / Mandaeism leisure activities: exercise Tobacco: How many years used: 0 quit status: quit date established second hand exposure: Yes alcohol intake: never substance use type: does not use Smoking Status: Never smoker alcohol intake frequency: other Exam Narrative Exam Narrative: General: Cooperative, well-developed, not in acute distress HEENT: Normocephalic, atraumatic, PERRLA, normal sclera, eyelids normal Neck: Active full range of motion, atraumatic Chest: Normal to inspection, negative crepitus, no overlying erythema ecchymosis Respiratory: Mild expiratory wheezes in lower lung orantes, Normal respiratory effort, not in acute respiratory distress, clear to auscultation bilaterally negative cough, tachypnea, rhonchi, rales Cardiology: Regular rate rhythm negative gallop, murmur, rubs GI/: No tenderness to palpation, soft, non rigid, normal to inspection, exam deferred MSK: Full active range of motion in all 4 extremities, atraumatic, no tenderness to palpation of any bony prominences Skin: No rashes or lesions noted Neuro: Alert awake oriented x3, moves all 4 extremities spontaneously, cranial nerves intact, able to answer all questions appropriately follows commands appropriately Psych: Cooperative, negative suicidal or homicidal ideations Initial Vital Signs Initial Vital Signs: Vital Signs Temperature 98.5 F 12/10/24 16:05 Pulse Rate 66 12/10/24 16:05 Respiratory Rate 20 12/10/24 16:05 Blood Pressure 159/68 H 12/10/24 16:05 Pulse Oximetry 97 12/10/24 16:05 Oxygen Delivery Method Room Air 12/10/24 16:05 Course Orders Ordered: ED Orders 12/10/24 16:12 XR chest 1V Stat EKG-12 Lead Stat Measure peak expiratory flow STAT RT Consult Eval and Treat STAT 12/10/24 16:25 Urinalysis and Microscopic Stat Urine Culture Stat 12/10/24 16:36 Complete Blood Count AUTO DIFF Stat Comprehensive Metabolic Panel Stat Lactate (Lactic Acid) Stat NT-proBNP (BNP-Adult 18+) Stat Prothrombin Time INR Stat Troponin I Stat 12/10/24 19:50 CT angio chest PE protocol Stat Discontinued Medications Dabigatran (Dabigatran 75 Mg Capsule) 150 mg PO NOW ONE Stop: 12/10/24 20:27 Last Admin: 12/10/24 20:48 Dose: 150 mg Documented By: JAMES Flecainide Acetate (Flecainide 100 Mg Tablet) 100 mg PO NOW ONE Stop: 12/10/24 20:27 Last Admin: 12/10/24 20:48 Dose: 100 mg Documented By: JAMES Vital Signs Vital signs: Vital Signs - 8 hr 12/10/24 16:05 Temperature 98.5 F Pulse Rate 66 Respiratory Rate 20 Blood Pressure 159/68 H Pulse Oximetry 97 Oxygen Delivery Method Room Air MDM - SOB/Dyspnea Differential Diagnosis Differential diagnosis: Likely acute exacerbation of chronic obstructive airways disease, congestive heart failure, community acquired pneumonia, asthma with exacerbation and other (Electrolyte abnormality, ACS,) Lab Data 12/10/24 16:36 12/10/24 16:36 Labs: Lab Results 12/10/24 12/10/24 Range/Units 16:25 16:36 WBC 11.2 H (4.5-11.0) X10^3/uL RBC 4.44 (4.0-5.2) X10^6/uL Hgb 8.9 L (12.0-16.0) g/dL Hct 29.3 L (36-46) % MCV 66.1 L (80-100) fL MCH 20.1 L (26-34) PG MCHC 30.5 (30-36) % RDW 19.4 H (11.6-14.8) % Plt Count 429 H (150-400) X10^3/uL Neut % (Auto) 64.9 (50-75) % Lymph % (Auto) 24.9 L (25-40) % [place] % (Auto) 7.7 (3-14) % Eos % (Auto) 1.5 L (2-4) % Baso % (Auto) 1.0 (0-2) % Neut # (Auto) 7300 H (8437-6450) /uL Lymph # (Auto) 2800 (7397-3290) /uL [place] # (Auto) 900 (0-900) /uL Eos # (Auto) 200 (0-450) /uL Baso # (Auto) 100 (0-100) /uL RBC Morphology See below Microcytosis 1+ H PT 13.1 H (9.4-12.5) SECONDS INR 1.2 (0.9-1.3) Sodium 139 (137-145) mmol/L Potassium 3.8 (3.4-5.1) mmol/L Chloride 104 (98-107) mmol/L Carbon Dioxide 28 (22-32) mmol/L BUN 20 H (7-17) mg/dL Creatinine 0.72 (0.52-1.04) mg/dL Estimated GFR > 60 (>60) mL/min BUN/Creatinine Ratio 27.8 H (6-22) Glucose 99 (70-99) mg/dL Lactate 1.6 (0.7-2.1) mmol/L Calcium 8.4 (8.4-10.2) mg/dL Total Bilirubin 0.4 (0.2-1.3) mg/dL AST 29 (14-36) IU/L ALT 19 (<35) IU/L Alkaline Phosphatase 102 (38-126) U/L Troponin I < 0.012 (0.01-0.034) ng/mL NT-Pro-B Natriuret Pep 675 H (<125) pg/mL Total Protein 7.0 (6.3-8.2) g/dL Albumin 3.8 (3.5-5.0) g/dL Globulin 3.2 (1.7-4.1) g/dL Albumin/Globulin Ratio 1.2 (1.0-2.8) Urine Color Yellow Urine Appearance Clear Urine pH 6.0 (4.5-8.0) Ur Specific [place] >=1.030 H (1.000-1.035) Urine Protein 2+ H (Negative) Urine Glucose (UA) Negative (Negative) g/dL Urine Ketones Negative (NEGATIVE) Urine Occult Blood 3+ H (Negative) Urine Nitrate Negative (Negative) Urine Bilirubin Negative (NEGATIVE) Urine Urobilinogen 1.0 (0.2) E.U./dL Ur Leukocyte Esterase Trace H (NEGATIVE) Urine RBC >100/hpf H (0-5/HPF) Urine WBC 10-30/hpf H (0-5/HPF) Ur Squamous Epith Cells 1-5 /hpf (0-5/HPF) Urine Bacteria Few (2-10) H (None) Ur Culture Indicated? Specimen cultured Vol Urine Centrifuged 10ml (spun) Imaging Data Chest x-ray: Radiologist's Impression: [address] [address] XRay Report Signed Patient: Daya Laboy MR#: [id number] : 1950 Acct:[id number] Age/Sex: 73 / F Date of Service: 12/10/24 Loc: ED Accession Number: [id number] Procedure: XR chest 1V Ordering Provider: Frantz Vallejo MD PROCEDURE: XR CHEST 1V INDICATIONS: Shortness of breath TECHNIQUE: One view of the chest was acquired. COMPARISON: [facility], CR, XR CHEST 1V, 11/25/2024, 19:47. FINDINGS: Surgical changes and devices: None. Lungs and pleura: Lungs are clear. No pleural effusions or pneumothorax. Mediastinum: Stable cardiomegaly. Bones and chest wall: No suspicious bony lesions. Overlying soft tissues appear unremarkable. IMPRESSION: No acute cardiopulmonary abnormality is seen. ECG Data Interpretation: EKG interpreted ED physician sinus 65 beats per minute QTC 499, normal axis nonspecific ST changes no STEMI MDM Narrative Medical decision making narrative: Patient is a 73-year-old female with a past medical history of asthma, AFib on Pradaxa, hypertension, CHF with a preserved ejection fraction, fibromyalgia, presents to the ED from home for evaluation of persistent shortness of breath dyspnea with exertion ongoing persistent for the past several days, states that she has seen her rest room attendant and increased her Lasix to 40 mg a day, states that this has helped but has not gone back to ?her baseline she is not requiring any supplemental oxygen here, she does state that she did have a cardioversion at [facility] a few days ago for her AFib, supposed to see her rest room attendant, Dr. Mendez on 01/07/2025 for possible cardioversion. Patient in sinus here at the emergency department. Chest x-ray without any acute cardiopulmonary abnormality, troponin negative, BNP only slightly elevated at 675, patient did have some mild expiratory wheezes therefore did give Solu- Medrol albuterol nebulizer with significant improvement of symptoms, patient will be treated for acute asthma exacerbation she verbalized understanding of this and agrees to being discharged home with outpatient follow up. She was instructed follow up with her primary care doctor as well as Cardiology, understands agrees with this plan. Discharge Plan Departure Patient Disposition: Home Clinical Impression: Asthma exacerbation Instructions: DI for Asthma -- Adult Activity Restrictions/Additional Instructions: Follow up with your rest room attendant and your primary care doctor in outpatient setting Please read the discharge instructions sheet carefully and bring all papers to all doctor follow-up visits, as it may contain information that your doctor may want to see. Disease processes change and evolve, if your symptoms worsen or if you develop any new symptoms that are concerning to you please return for evaluation. Your evaluation today does not show any evidence of any life- threatening/serious illnesses requiring admission to the hospital or surgery. Please follow-up with your doctor for re-evaluation in approximately 1 day. Seek immediate medical attention for any worrisome symptoms. *If you do not have a primary care provider please contact the [facility] Resource line at [phone]. They will ask some questions about your medical history and help get you set up with a doctor in the community. Prescriptions: New prednisone 20 mg tablet 20 mg PO DAILY 5 Days Qty: 5 0RF albuterol sulfate 90 mcg/actuation HFA aerosol inhaler 2 puff inhalation Q4-6H PRN (Reason: shortness of breath or wheezing) Qty: 8.5 0RF No Action rosuvastatin 5 mg tablet 5 mg PO DAILY Qty: 90 3RF dabigatran etexilate 150 mg capsule 150 mg PO BID Qty: 180 3RF cefuroxime axetil 500 mg tablet 500 mg PO BID Qty: 20 0RF allopurinol 300 mg tablet 300 mg PO DAILY colchicine 0.6 mg tablet 0.6 mg PO DAILY (DME) Disabled Parking See Rx Instructions .ROUTE .MEDSUPPLY Qty: 1 0RF Rx Instructions: Patient qualifies for disabled parking as per the attached form. albuterol sulfate 90 mcg/actuation HFA aerosol inhaler 2 puff inhalation Q4-6H PRN (Reason: shortness of breath or wheezing) Qty: 6.7 8RF ipratropium-albuterol 0.5 mg-3 mg(2.5 mg base)/3 mL solution for nebulization 3 ml inhalation Q6H PRN (Reason: shortness of breath or wheezing) Qty: 90 2RF flecainide 50 mg tablet 100 mg PO BID Rx Instructions: AM and dinner hydroxychloroquine 200 mg tablet 100 mg PO DAILY metoprolol succinate [Toprol XL] 25 mg tablet extended release 24 hr 50 mg PO QDAY Qty: 270 3RF cranberry lilbfdc-g-pehmykh 500-50 mg tablet,chewable PO Patient Comments: Take 1 tablet daily to protect lining of urinary tract. multivitamin Tablet 1 tab PO DAILY estradiol 0.01 % (0.1 mg/gram) cream 1 g vaginal QWEEK furosemide 20 mg tablet 20 mg PO DAILY Qty: 90 3RF aspirin [Aspir-Low] 81 mg tablet,delayed release (DR/EC) 81 mg PO DAILY ferrous sulfate 325 mg (65 mg iron) tablet 325 mg PO DAILY Qty: 60 0RF Referrals: Anil Sommers MD [Primary Care Provider, Internal Medicine] Stand Alone Forms: Patient Portal/API
[2024-12-10] MEDS: ALBUTEROL 2.5 MG/3 ML NEB (ADULT) INH (21:40)
== END 2024-12-10 22:30 | disposition home or self-care (01) ==
PROVIDERS: Emergency Medicine; Emergency Provider Student in an Organized Health Care Education/Training Program; PCP Internal Medicine
DX: J45.901 Unspecified asthma with (acute) exacerbation (principal); Z79.01 Long term (current) use of anticoagulants
CPT/HCPCS: 36415; 71045; 80053; 81001; 83605; 83880; 84484; 85025; 85610; 87086; 93005; 96374; 99284; J2919; J7613

== ENCOUNTER → 2025-01-28 16:12 | Outpatient (CLI) | payer OTHER, MEDICARE, SELFPAY ==
[2024-10-01 08:50] VITALS: BMI 53.1
[2025-01-28 16:48] LABS: Culture Indicated Urine Cult Not Indicated
== END ==
PROVIDERS: PCP Internal Medicine; Visit Provider Physician Assistant
DX: R31.9 Hematuria, unspecified (principal); N39.0 Urinary tract infection, site not specified
CPT/HCPCS: 81015

== ENCOUNTER → 2025-04-04 10:28 | Outpatient (CLI) | payer OTHER, MEDICARE, SELFPAY ==
[2024-10-01 08:50] VITALS: BMI 53.1
[2025-04-04 11:36] LABS: Add Manual Diff / Slide Review NO; Hematocrit 38.1 % (36-46); Hemoglobin 11.9 g/dL (12.0-16.0); Lymphocytes Absolute Auto 3400 /uL (1100-4500); Mean Corpuscular HGB Conc 31.2 % (30-36); Mean Corpuscular Hemoglobin 22.8 PG (26-34); Mean Corpuscular Volume 73.0 fL (80-100); Platelet Count 432 X10^3/uL (150-400)
[2025-04-04 11:59] LABS: Alanine Aminotransferase 23 IU/L (<35); Albumin 4.1 g/dL (3.5-5.0); Albumin Globulin Ratio 1.3 (1.0-2.8); Alkaline Phosphatase 118 U/L (38-126); Blood Urea Nitrogen 22 mg/dL (7-17); Calcium 9.6 mg/dL (8.4-10.2); Carbon Dioxide 28 mmol/L (22-32); Chloride 97 mmol/L (98-107); Estimated Glomerular Filt Rate > 60 mL/min (>60); Globulin 3.2 g/dL (1.7-4.1); Glucose 145 mg/dL (70-99); HEMOLYSIS < 15 (0-50); Magnesium 2.1 mg/dL (1.6-2.3); Potassium 4.3 mmol/L (3.4-5.1); Sodium 138 mmol/L (137-145); Total Protein 7.3 g/dL (6.3-8.2)
[2025-04-04 12:23] LABS: HEMOLYSIS < 15 (0-50); Iron 40 ug/dL (37-170)
[2025-04-04 12:32] LABS: Percent Iron Saturation 10 % (15-50); Total Iron Binding Capacity 411 ug/dL (265-497); Transferrin 357 mg/dL (206-381)
[2025-04-04 12:42] LABS: Anisocytosis 1+; Microcytosis 1+
== END ==
PROVIDERS: PCP Internal Medicine; Referring Provider Internal Medicine; Visit Provider Internal Medicine
DX: I10 Essential (primary) hypertension (principal); I48.0 Paroxysmal atrial fibrillation; D64.9 Anemia, unspecified; Z79.01 Long term (current) use of anticoagulants
CPT/HCPCS: 36415; 80053; 83540; 83550; 83735; 85025

== ENCOUNTER 2025-04-19 10:18 | Emergency (ER) | payer OTHER, MEDICARE, SELFPAY ==
[2024-10-01 08:50] VITALS: BMI 53.1
[2025-04-19] VITALS (18 sets, daily range): BP systolic 108–150; BP diastolic 52–98; PULSE 66–79; RESP 11–27; TEMP 36.9–37.1; O2SAT 93–99; BMI 50.6
--- NOTE | 2025-04-19 10:54 | DI.RAD.S_ITS ---
PROCEDURE: XR CHEST 1V INDICATIONS: Shortness of breath TECHNIQUE: One view of the chest was acquired. COMPARISON: [facility], , XR CHEST 1V, 12/10/2024, 16:30. [facility], CR, XR CHEST 1V, 11/25/2024, 19:47. FINDINGS: Surgical changes and devices: None. Lungs and pleura: Lungs are clear. No pleural effusions or pneumothorax. Mediastinum: Mediastinal contours appear normal. Heart size is normal. Bones and chest wall: No suspicious bony lesions. Overlying soft tissues appear unremarkable. IMPRESSION: No acute cardiopulmonary abnormality is seen. Dictated by: Remington Riley M.D. on 04/19/2025 at 11:24 Approved by: Remington Riley M.D. on 04/19/2025 at 11:24
--- NOTE | 2025-04-19 11:07 | EKG_ITS ---
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
[2025-04-19] MEDS: ALBUTEROL 2.5 MG/3 ML NEB (ADULT) 5 MG INH (11:09)
--- NOTE | 2025-04-19 11:18 | ED.SOB ---
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 Patient denies any chest pain, abdominal pain, nausea, vomiting, diarrhea, back pain, urinary complaints. Other than what is stated 14 point review of system is negative Related Data Home Medications ?Medication ?Instructions ?Recorded ?Confirmed aspirin 81 mg tablet,delayed 81 mg PO DAILY 07/16/19 04/19/25 release (Aspir-Low) allopurinol 300 mg tablet 300 mg PO DAILY 05/19/22 04/19/25 flecainide 50 mg tablet 100 mg PO BID 06/28/24 04/19/25 cranberry extract 500 [id number] tab PO 07/18/24 04/19/25 50 mg chewable tablet estradiol 0.01% (0.1 mg/gram) 1 g vaginal QWEEK 07/18/24 04/19/25 vaginal cream multivitamin 1 tab PO DAILY 07/18/24 04/19/25 colchicine 0.6 mg tablet 0.6 mg PO DAILY PRN 01/07/25 04/19/25 senna leaf extract 8.7 mg chewable mg PO 01/07/25 04/19/25 tablet torsemide 20 mg tablet 20 mg PO BID 01/07/25 04/19/25 spironolactone 50 mg tablet 25 mg PO DAILY 01/10/25 04/19/25 hydroxychloroquine 200 mg tablet 100 mg PO DAILY PRN 01/28/25 04/19/25 Previous Rx's ?Medication ?Instructions ?Recorded rosuvastatin 5 mg tablet 5 mg PO DAILY #90 tabs 01/20/22 dabigatran etexilate 150 mg capsule 150 mg PO BID #180 caps 07/25/22 Disabled Parking #1 ea 08/24/23 ipratropium 0.5 mg-albuterol 3 mg 3 ml inhalation Q6H PRN shortness 08/24/23 (2.5 mg base)/3 mL nebulization of breath or wheezing #90 mL soln metoprolol succinate 25 mg 50 mg (2 x 25 mg) PO QDAY #270 tabs 07/18/24 tablet,extended release 24 hr (Toprol XL) albuterol sulfate 90 mcg/actuation 2 puff inhalation Q4-6H PRN 12/13/24 aerosol inhaler shortness of breath or wheezing #6.7 grams torsemide 20 mg tablet 20 mg PO BID #180 tabs 02/07/25 albuterol sulfate 90 mcg/actuation 2 inh inhalation Q4-6H PRN 04/19/25 breath activated powder inhaler shortness of breath or wheezing #1 ea amoxicillin 875 mg-potassium 1 tab PO Q12H #14 tabs 04/19/25 clavulanate 125 mg tablet azithromycin 250 mg tablet 250 mg PO DAILY 4 days #4 tabs 04/19/25 Allergies Allergy/AdvReac Type Severity Reaction Status Date / Time levofloxacin (From LEVAQUIN) Allergy Intermediate rash and Verified 04/19/25 10:55 tendon pain nickel (NICKEL) Allergy Intermediate RASH Verified 04/19/25 10:55 codeine Allergy Mild Anaphylaxis Verified 04/19/25 10:55 Sulfa (Sulfonamide Allergy Mild HIVES Verified 04/19/25 10:55 Antibiotics) metronidazole (From FLAGYL) AdvReac Mild headache Verified 04/19/25 10:55 morphine AdvReac Mild DROPS Verified 04/19/25 10:55 RESPIRATORY RATE iodine AdvReac Swelling Verified 04/19/25 10:55 of Lip/Tongue/Throat Review of Systems Review of Systems ROS Unobtainable: All systems reviewed & are unremarkable except as noted in HPI and below Patient History Medical History (Updated 04/19/25 @ 15:33 by Anil Granados, ) Small bowel obstruction Chronic diastolic heart failure with preserved ejection fraction Anemia Vaginal atrophy Gout, chronic History of bladder stone Chronic anticoagulation Personal history of stroke with current residual effects (~06/2019) Anesthesia Vision disorder Sjogren's syndrome (~1962) Fibromyalgia (~1999) Actinic keratosis Mumps (~1957) Measles (~1959) Heavy menstrual period (~2009) Fibroids (~2009) Kidney stones (~1979) Frequent UTI (~1979) Irritable bowel syndrome (~2011) Mild intermittent asthma without complication (07/10/15) Diverticulosis of large intestine without perforation or abscess without bleeding Rheumatoid arthritis (06/17/11) Major depression in complete remission (06/17/11) Hypertension, essential (~1999) Paroxysmal atrial fibrillation (~2012) Surgical History History of surgery Status post panniculectomy (~01/30/17) History of salpingectomy (~01/30/17) Status post hysterectomy with oophorectomy (01/30/17) Status post surgery (12/26/16) Status post dilation and curettage Status post tubal ligation Status post tonsillectomy and adenoidectomy (~1962) History of third molar tooth extraction Status post cholecystectomy Status post breast reduction (~1999) Status post surgery (07/28/09) S/P left colectomy S/P laparoscopic supracervical hysterectomy Family History Brother Fam hx-ischem heart disease Heart disease Father Fam hx-ischem heart disease Hypertension Crohns disease Grandfather Heart disease Grandmother Mental health problem Mother Family hx of lung cancer Fam hx-ischem heart disease Cancer Hypertension Grandfather Hypertension Stroke Grandmother Hypertension Stroke Son Family history of Hodgkin's disease Social History marital status: number of children: 4 household members: none lives independently: Yes caregiver/support person: No housing: house pets and animals: Yes education level: other occupational status: employed current occupational exposures/hazards: Yes mirian/denominational: Zoroastrianism Saint / Buddhism leisure activities: exercise Smoking Status: Never smoker Tobacco: How many years used: 0 quit status: quit date established second hand exposure: Yes alcohol intake: never substance use type: does not use Smoking Status: Never smoker alcohol intake frequency: other Exam Narrative Exam Narrative: GENERAL: [74] year old patient appears stated age. Well-developed patient, in mild distress. HEAD: Atraumatic. Normocephalic. EYES: Pupils equal round and reactive. Extraocular motions intact. No scleral icterus. No injection or drainage. ENT: Nose without bleeding, purulent drainage. Throat without erythema, tonsillar hypertrophy or exudate. Airway patent. NECK: Trachea midline. Non tender CARDIOVASCULAR: Regular rate and rhythm without murmurs, gallops, or rubs. RESPIRATORY: Decreased breath sounds right side horizontal GASTROINTESTINAL: Abdomen soft, non-tender, nondistended. EXTREMITIES: No edema or joint tenderness. BACK: Nontender without deformity or crepitance. No flank tenderness. NEURO: AOx3. SKIN: No rash or erythema of visible areas Initial Vital Signs Initial Vital Signs: Vital Signs Temperature 98.4 F 04/19/25 10:35 Pulse Rate 70 04/19/25 10:35 Respiratory Rate 18 04/19/25 10:35 Blood Pressure 140/98 H 04/19/25 10:35 Pulse Oximetry 99 04/19/25 10:35 Oxygen Delivery Method Room Air 04/19/25 10:35 Course Orders Ordered: ED Orders 04/19/25 10:54 XR chest 1V Stat EKG-12 Lead Stat Measure peak expiratory flow STAT RT Consult Eval and Treat STAT 04/19/25 11:08 Covid-19 + FLU A/B + RSV - PCR Stat Sputum Culture Stat 04/19/25 11:20 Complete Blood Count AUTO DIFF Stat Comprehensive Metabolic Panel Stat Lactate (Lactic Acid) Stat NT-proBNP (BNP-Adult 18+) Stat Prothrombin Time INR Stat Troponin I Stat Lactated Ringer's (Lactated Ringers) 1,000 mls @ 1,000 mls/hr IV BOLUS ONE Stop: 04/19/25 13:25 Last Admin: 04/19/25 12:28 Dose: 1,000 mls/hr Documented By: GERDAF Discontinued Medications Albuterol (Albuterol 2.5 Mg/3 Ml Neb (Adult)) 5 mg INH NOW ONE Stop: 04/19/25 11:10 Last Admin: 04/19/25 11:09 Dose: 5 mg Documented By: CHRISTIF Lactated Ringer's (Lactated Ringers) 500 mls @ 1,000 mls/hr IV BOLUS ONE Stop: 04/19/25 12:51 Last Admin: 04/19/25 12:29 Dose: Not Given Documented By: SGF Methylprednisolone (Methylprednisolone Succ 125 Mg/2 Ml Vial) 125 mg IV NOW ONE Stop: 04/19/25 11:21 Last Admin: 04/19/25 11:38 Dose: 125 mg Documented By: SGF Vital Signs Vital signs: Vital Signs - 8 hr 04/19/25 10:35 04/19/25 10:49 04/19/25 11:00 Temperature 98.4 F Pulse Rate 70 66 71 Respiratory Rate 18 Blood Pressure 140/98 H Pulse Oximetry 99 99 98 Oxygen Delivery Method Room Air 04/19/25 11:00 04/19/25 11:09 04/19/25 11:25 Temperature Pulse Rate 67 68 Respiratory Rate 16 27 H Blood Pressure 133/69 Pulse Oximetry 97 99 Oxygen Delivery Method Room Air 04/19/25 11:25 04/19/25 11:30 04/19/25 11:30 Temperature Pulse Rate 68 Respiratory Rate 23 Blood Pressure 138/65 142/72 H Pulse Oximetry 96 Oxygen Delivery Method MDM - SOB/Dyspnea Lab Data 04/19/25 11:20 04/19/25 11:20 Labs: Lab Results 04/19/25 04/19/25 Range/Units 11:08 11:20 WBC 10.7 (4.5-11.0) X10^3/uL RBC 4.86 (4.0-5.2) X10^6/uL Hgb 11.2 L (12.0-16.0) g/dL Hct 35.4 L (36-46) % MCV 72.8 L (80-100) fL MCH 23.0 L (26-34) PG MCHC 31.6 (30-36) % RDW 22.2 H (11.6-14.8) % Plt Count 390 (150-400) X10^3/uL Neut % (Auto) Not Reportable Lymph % (Auto) Not Reportable [place] % (Auto) Not Reportable Eos % (Auto) Not Reportable Baso % (Auto) Not Reportable Lymph # (Auto) Not Reportable [place] # (Auto) Not Reportable Baso # (Auto) Not Reportable Total Counted 100 Seg Neutrophils % 55.0 (38-70) % Lymphocytes % (Manual) 40.0 (25-45) % Monocytes % (Manual) 4.0 (2-11) % Eosinophils % (Manual) 1.0 L (2-4) % Neutrophils # (Manual) 5885 (2099-2564) /uL RBC Morphology See below Polychromasia 1+ H Anisocytosis 3+ H Microcytosis 1+ H PT 14.4 H (9.4-12.5) SECONDS INR 1.3 (0.9-1.3) Sodium 138 (137-145) mmol/L Potassium 3.7 (3.4-5.1) mmol/L Chloride 101 (98-107) mmol/L Carbon Dioxide 27 (22-32) mmol/L BUN 19 H (7-17) mg/dL Creatinine 0.83 (0.52-1.04) mg/dL Estimated GFR > 60 (>60) mL/min BUN/Creatinine Ratio 22.9 H (6-22) Glucose 106 H (70-99) mg/dL Lactate 2.4 H (0.7-2.1) mmol/L Calcium 9.1 (8.4-10.2) mg/dL Total Bilirubin 0.2 (0.2-1.3) mg/dL AST 31 (14-36) IU/L ALT 21 (<35) IU/L Alkaline Phosphatase 114 (38-126) U/L Troponin I < 0.012 (0.01-0.034) ng/mL NT-Pro-B Natriuret Pep 273 H (<125) pg/mL Total Protein 7.6 (6.3-8.2) g/dL Albumin 4.1 (3.5-5.0) g/dL Globulin 3.5 (1.7-4.1) g/dL Albumin/Globulin Ratio 1.2 (1.0-2.8) SARS-CoV-2 (PCR) Negative (Negative) Influenza A (RT-PCR) Flu a negative (NEGATIVE) Influenza B (RT-PCR) Flu b negative (NEGATIVE) RSV (PCR) Negative (Negative) Imaging Data Chest x-ray: Radiologist's Impression: [address] [address] XRay Report Signed Patient: Daya Laboy MR#: [id number] : 1950 Acct:[id number] Age/Sex: 74 / F Date of Service: 04/19/25 Loc: ED Accession Number: [id number] Procedure: XR chest 1V Ordering Provider: Anil Granados D.O. PROCEDURE: XR CHEST 1V INDICATIONS: Shortness of breath TECHNIQUE: One view of the chest was acquired. COMPARISON: [facility], LYNNE, XR CHEST 1V, 12/10/2024, 16:30. [facility], CR, XR CHEST 1V, 11/25/2024, 19:47. FINDINGS: Surgical changes and devices: None. Lungs and pleura: Lungs are clear. No pleural effusions or pneumothorax. Mediastinum: Mediastinal contours appear normal. Heart size is normal. Bones and chest wall: No suspicious bony lesions. Overlying soft tissues appear unremarkable. IMPRESSION: No acute cardiopulmonary abnormality is seen. CT scan - chest: Radiologist's Impression: [address] [address] [address] Scan Report Signed Patient: Daya Laboy MR#: [id number] : 1950 Acct:[id number] Age/Sex: 74 / F Date of Service: 04/19/25 Loc: ED Accession Number: [id number] Procedure: CT angio chest PE protocol Ordering Provider: Anil Granados D.O. PROCEDURE: CT ANGIO CHEST PE PROTOCOL INDICATIONS: sob coughing up blood TECHNIQUE: After the administration of intravenous contrast, 2 mm thick sections acquired from the pulmonary apices to the posterior costophrenic angles. 3-dimensional maximum intensity projection (MIP) coronal and sagittal reformats were then acquired through the thorax. For radiation dose reduction, the following was used: automated exposure control, adjustment of mA and/or kV according to patient size. COMPARISON: None. FINDINGS: Image quality: Diagnostic. Pulmonary arteries: Pulmonary arteries are normal in size, and demonstrate no intraluminal filling defects to suggest central pulmonary embolism. Lower Neck: No enlarged lymph nodes. Thyroid: No thyroid nodules which require sonographic follow up, per consensus guidelines. Axillae: No enlarged lymph nodes. Chest Wall: Unremarkable. Bones: Multilevel bridging osteophytes, which can be seen with DISH.. Lungs and Pleura: No pneumothorax or pleural effusions. No consolidation or suspicious nodules. No focal pulmonary infarct is identified. Subsegmental atelectasis in the bilateral lung bases. Heart: Heart size is normal. No pericardial effusion. Mild 2 vessel coronary artery calcifications. Thoracic Vessels: No aortic aneurysm. Mediastinum and Susy: No enlarged lymph nodes. Esophagus: No wall thickening. No hiatal hernia. Upper Abdomen: Visualized upper abdomen solid organs and bowel loops appear normal. IMPRESSION: No pulmonary embolus. No acute cardiopulmonary process. Dvav-qs-obrpbzfo coronary artery calcifications. Correlate with risk factors, symptoms, and consider cardiology referral versus lifestyle modifications. ECG Data Interpretation: Sinus Rhythm HR 67 AL 246 QRS [address]-t wave change Unchanged from 12/10/24 MDM Narrative Medical decision making narrative: All lab work, vital signs, nurse triage note, medication list, previous ER visits, and all imaging studies reviewed. WBC 10.7 hemoglobin 11.2 platelets 390 sodium 138 potassium 3.7 chloride 101 CO2 20 creatinine 0.83 glucose 106 get a acid 2.4 and on repeat after fluids 2.3 LFTs normal to assess troponin normal BNP 273. COVID flu RSV negative. Patient given fluids and Solu-Medrol. Reexamination was told that she was spitting up chunks of blood coughing and so CTA was performed which showed no pulmonary embolus no acute cardiopulmonary process. Mild to moderate coronary artery calcification. Patient will be discharged on Augmentin and Zithromax and Proventil. Differential diagnosis COVID flu RSV sepsis pneumonia Discharge Plan Departure Patient Disposition: Home Clinical Impression: Pneumonia Instructions: DI for Pneumonia -- Adult Activity Restrictions/Additional Instructions: Return with new or worsening symptoms. Take medicines as directed. Follow up PCP in 1-2 weeks if no improvement in symptoms. Prescriptions: New amoxicillin-pot clavulanate 875-125 mg tablet 1 tab PO Q12H Qty: 14 0RF azithromycin 250 mg tablet 250 mg PO DAILY 4 Days Qty: 4 0RF albuterol sulfate 90 mcg/actuation aerosol powdr breath activated 2 inh inhalation Q4-6H PRN (Reason: shortness of breath or wheezing) Qty: 1 0RF No Action rosuvastatin 5 mg tablet 5 mg PO DAILY Qty: 90 3RF dabigatran etexilate 150 mg capsule 150 mg PO BID Qty: 180 3RF albuterol sulfate 90 mcg/actuation HFA aerosol inhaler 2 puff inhalation Q4-6H PRN (Reason: shortness of breath or wheezing) Qty: 6.7 8RF allopurinol 300 mg tablet 300 mg PO DAILY colchicine 0.6 mg tablet 0.6 mg PO DAILY PRN (DME) Disabled Parking See Rx Instructions .ROUTE .MEDSUPPLY Qty: 1 0RF Rx Instructions: Patient qualifies for disabled parking as per the attached form. ipratropium-albuterol 0.5 mg-3 mg(2.5 mg base)/3 mL solution for nebulization 3 ml inhalation Q6H PRN (Reason: shortness of breath or wheezing) Qty: 90 2RF flecainide 50 mg tablet 100 mg PO BID Rx Instructions: AM and dinner metoprolol succinate [Toprol XL] 25 mg tablet extended release 24 hr 50 mg PO QDAY Qty: 270 3RF cranberry hclbmzp-r-ehsdkpn 500-50 mg tablet,chewable PO Patient Comments: Take 1 tablet daily to protect lining of urinary tract. multivitamin Tablet 1 tab PO DAILY estradiol 0.01 % (0.1 mg/gram) cream 1 g vaginal QWEEK hydroxychloroquine 200 mg tablet 100 mg PO DAILY PRN Patient Comments: uses as needed, not currently taking 01/28/25 torsemide 20 mg tablet 20 mg PO BID senna leaf extract 8.7 mg tablet,chewable PO Rx Instructions: takes 4 gummies at night torsemide 20 mg tablet 20 mg PO BID Qty: 180 3RF aspirin [Aspir-Low] 81 mg tablet,delayed release (DR/EC) 81 mg PO DAILY spironolactone 50 mg tablet 25 mg PO DAILY Referrals: Anil Sommers MD [Primary Care Provider, Internal Medicine] Stand Alone Forms: Patient Portal/API
[2025-04-19] MEDS: methylPREDNISolone succ 125 MG/2 ML VIAL IV (11:38)
[2025-04-19 11:41] LABS: INR 1.3 (0.9-1.3); Prothrombin Time 14.4 SECONDS (9.4-12.5)
[2025-04-19 11:45] LABS: Lactate (Lactic Acid) 2.4 mmol/L (0.7-2.1)
[2025-04-19 11:46] LABS: Alanine Aminotransferase 21 IU/L (<35); Albumin 4.1 g/dL (3.5-5.0); Albumin Globulin Ratio 1.2 (1.0-2.8); Alkaline Phosphatase 114 U/L (38-126); Blood Urea Nitrogen 19 mg/dL (7-17); Calcium 9.1 mg/dL (8.4-10.2); Carbon Dioxide 27 mmol/L (22-32); Chloride 101 mmol/L (98-107); Estimated Glomerular Filt Rate > 60 mL/min (>60); Globulin 3.5 g/dL (1.7-4.1); Glucose 106 mg/dL (70-99); HEMOLYSIS < 15 (0-50); Potassium 3.7 mmol/L (3.4-5.1); Sodium 138 mmol/L (137-145); Total Protein 7.6 g/dL (6.3-8.2)
[2025-04-19 11:50] LABS: Hematocrit 35.4 % (36-46); Hemoglobin 11.2 g/dL (12.0-16.0); Mean Corpuscular HGB Conc 31.6 % (30-36); Mean Corpuscular Hemoglobin 23.0 PG (26-34); Mean Corpuscular Volume 72.8 fL (80-100); Platelet Count 390 X10^3/uL (150-400)
[2025-04-19 11:52] LABS: Add Manual Diff / Slide Review YES
[2025-04-19 11:57] LABS: NT-proBNP (BNP-Adult 18+) 273 pg/mL (<125); Troponin I < 0.012 ng/mL (0.01-0.034)
[2025-04-19 12:05] LABS: Eosinophils Percent Manual 1.0 % (2-4); Lymphocytes Percent Manual 40.0 % (25-45); Monocytes Percent Manual 4.0 % (2-11); Neutrophils Absolute Manual 5885 /uL (3000-5900); Segmented Neutrophils Percent 55.0 % (38-70); Total Cells Counted 100
[2025-04-19 12:06] LABS: Anisocytosis 3+; Microcytosis 1+
[2025-04-19 12:07] LABS: Polychromasia 1+
[2025-04-19 12:18] LABS: Influenza A - CEPHEID Flu A NEGATIVE (NEGATIVE); Influenza B - CEPHEID Flu B NEGATIVE (NEGATIVE)
[2025-04-19 12:21] LABS: COVID-19 CEPHEID 4-PLEX PCR Negative (Negative)
[2025-04-19] MEDS: LACTATED RINGERS 1,000 ML 1000 ML IV (12:28)
[2025-04-19 12:59] LABS: Reflexed Lactate in 2 Hours Y
--- NOTE | 2025-04-19 13:43 | EKG_ITS ---
[address] [address] Test Date: 2025-04-19 Pat Name: Daya Laboy Department: [facility] Room: Gender: Female [employer] Tender: LUCIO : 1950 Requested By: Order Number: [id number] Reading MD: Measurements Intervals [place] Rate: 67 P: 4 UT: 238 QRS: -18 QRSD: 116 T: 50 QT: 436 QTc: 460 Interpretive Statements Sinus rhythm with 1st degree AV block Low voltage QRS Septal infarct , age undetermined Cannot rule out Inferior infarct , age undetermined
[2025-04-19 13:45] LABS: Lactate 2HR (Lactic Acid Rflx) 2.3 mmol/L (0.7-2.1)
[2025-04-19 14:00] LABS: Troponin I < 0.012 ng/mL (0.01-0.034)
--- NOTE | 2025-04-19 14:16 | DI.CT.S_ITS ---
PROCEDURE: CT ANGIO CHEST PE PROTOCOL INDICATIONS: sob coughing up blood TECHNIQUE: After the administration of intravenous contrast, 2 mm thick sections acquired from the pulmonary apices to the posterior costophrenic angles. 3-dimensional maximum intensity projection (MIP) coronal and sagittal reformats were then acquired through the thorax. For radiation dose reduction, the following was used: automated exposure control, adjustment of mA and/or kV according to patient size. COMPARISON: None. FINDINGS: Image quality: Diagnostic. Pulmonary arteries: Pulmonary arteries are normal in size, and demonstrate no intraluminal filling defects to suggest central pulmonary embolism. Lower Neck: No enlarged lymph nodes. Thyroid: No thyroid nodules which require sonographic follow up, per consensus guidelines. Axillae: No enlarged lymph nodes. Chest Wall: Unremarkable. Bones: Multilevel bridging osteophytes, which can be seen with DISH.. Lungs and Pleura: No pneumothorax or pleural effusions. No consolidation or suspicious nodules. No focal pulmonary infarct is identified. Subsegmental atelectasis in the bilateral lung bases. Heart: Heart size is normal. No pericardial effusion. Mild 2 vessel coronary artery calcifications. Thoracic Vessels: No aortic aneurysm. Mediastinum and Suys: No enlarged lymph nodes. Esophagus: No wall thickening. No hiatal hernia. Upper Abdomen: Visualized upper abdomen solid organs and bowel loops appear normal. IMPRESSION: No pulmonary embolus. No acute cardiopulmonary process. [id number] coronary artery calcifications. Correlate with risk factors, symptoms, and consider cardiology referral versus lifestyle modifications. Dictated by: Remington Riley M.D. on 04/19/2025 at 15:15 Approved by: Remington Riley M.D. on 04/19/2025 at 15:17
[2025-04-19] MEDS: diphenhydrAMINE 50 MG/ML VIAL IV (14:36)
[2025-04-19] MEDS: FAMOTIDINE 20 MG/2 ML VIAL IV (14:36)
[2025-04-19] MEDS: AZITHROMYCIN 250 MG TABLET 500 MG PO (15:52)
[2025-04-19] MEDS: AMOXICILLIN/CLAV 875/125 MG 1 TAB PO (15:52)
== END 2025-04-19 15:53 | disposition home or self-care (01) ==
PROVIDERS: Emergency Provider Family Medicine; PCP Internal Medicine
DX: J18.9 Pneumonia, unspecified organism (principal); R04.2 Hemoptysis; I50.9 Heart failure, unspecified; I11.0 Hypertensive heart disease with heart failure; I48.91 Unspecified atrial fibrillation; Z79.01 Long term (current) use of anticoagulants
CPT/HCPCS: 36415; 71045; 71275; 80053; 83605; 83880; 84484; 85007; 85025; 85610; 87070; 87205; 87637; 93005; 94640; 96374; 96375; 99284; J1200; J2919; J7120; J7613; Q9967